=== PATIENT | female | born 1975 | race Caucasian/White ===

== ENCOUNTER 2019-08-29 10:13 | Observation (INO) | payer MEDICARE, OTHER ==
[2019-08-29 11:03] LABS: Basophils # (A) 0.1 k/uL (0-0.2); Basophils % (A) 1 %; Eosinophils # (A) 0.1 k/uL (0-0.7); Eosinophils % (A) 2 %; HCT 44.3 % (34.0-46.0); HGB 14.5 gm/dL (11.4-16.0); Lymphocytes # (A) 1.9 k/uL (1.0-4.8); Lymphocytes % (A) 31 %; MCHC 32.7 g/dL (31.0-37.0); MCV 94.6 fL (80.0-100.0); Monocytes # (A) 0.3 k/uL (0-1.0); Monocytes % (A) 5 %; Neutrophils # (A) 3.7 k/uL (1.3-7.7); Neutrophils % (A) 60 %; Platelet Count 224 k/uL (150-450); RBC 4.69 m/uL (3.80-5.40); RDW 12.9 % (11.5-15.5); WBC 6.2 k/uL (3.8-10.6)
[2019-08-29 11:15] LABS: ALT 46 U/L (4-34); AST 29 U/L (14-36); African American GFR (CKD) >90 (>60 ml/min/1.73 sqM); Albumin 4.7 g/dL (3.5-5.0); Alkaline Phosphatase 72 U/L (38-126); Anion Gap 10 mmol/L; Blood Urea Nitrogen 15 mg/dL (7-17); Calcium 9.6 mg/dL (8.4-10.2); Carbon Dioxide 23 mmol/L (22-30); Chloride 106 mmol/L (98-107); Glucose 91 mg/dL (74-99); INR 0.9 (<1.2); Non-African American GFR(CKD) >90 (>60 ml/min/1.73 sqM); Partial Thromboplastin Time 22.8 sec (22.0-30.0); Potassium 4.2 mmol/L (3.5-5.1); Prothrombin Time 9.6 sec (9.0-12.0); Sodium 139 mmol/L (137-145); Total Bilirubin 0.3 mg/dL (0.2-1.3); Total Protein 7.7 g/dL (6.3-8.2)
[2019-08-29] MEDS ORDERED: MAG HYDROX/AL HYDROX/SIMETH 30 ML CUP PO PRN (11:46)
[2019-08-29] MEDS ORDERED: NALOXONE 0.4 MG/ML 1 ML VIAL IV PRN (11:46)
--- NOTE | 2019-08-29 11:46 | ED ---
Neuro HPI - General Chief Complaint: Neuro Symptoms/Deficit Stated Complaint: facial numbness, head pain Time Seen by Provider: 08/29/19 11:10 Source: patient Mode of arrival: ambulatory Limitations: no limitations - History of Present Illness Is the patient presenting with stroke symptoms?: No Initial Comments: Patient presents to the emergency department complaining of syncopal episodes, off-and-on trouble speaking and left-sided numbness. Patient has had a recent head injury. She had a CT which was negative. Her symptoms began after the head injury. She currently has no change in vision or hearing. She has no pain. She has no neck pain or stiffness. She has no fever or chills. She is not currently exhibiting any trouble speaking. She has no chest or belly or back pain. She has no weakness in extremities. She has no nausea or vomiting or diaphoresis. She has taken no medicine for her symptoms. - Related Data Allergies/Adverse Reactions: Allergies Allergy/AdvReac Type Severity Reaction Status Date / Time gluten Allergy Swelling Verified 08/29/19 10:17 phenytoin [From Dilantin] Allergy Unknown Verified 08/29/19 10:17 shellfish derived [Shellfish] Allergy Anaphylaxis Verified 08/29/19 10:17 Review of Systems ROS Statement: Those systems with pertinent positive or pertinent negative responses have been documented in the HPI. ROS Other: All systems not noted in ROS Statement are negative. General Exam Limitations: no limitations General appearance: alert, in no apparent distress Head exam: Present: atraumatic, normocephalic, normal inspection Eye exam: Present: normal appearance, PERRL, EOMI. Absent: scleral icterus, conjunctival injection, periorbital swelling ENT exam: Present: normal exam, mucous membranes moist Neck exam: Present: normal inspection. Absent: tenderness, meningismus, lymphadenopathy Respiratory exam: Present: normal lung sounds bilaterally. Absent: respiratory distress, wheezes, rales, rhonchi, stridor Cardiovascular Exam: Present: regular rate, normal rhythm, normal heart sounds. Absent: systolic murmur, diastolic murmur, rubs, gallop, clicks GI/Abdominal exam: Present: soft, normal bowel sounds. Absent: distended, tenderness, guarding, rebound, rigid Extremities exam: Present: normal inspection, full ROM, normal capillary refill. Absent: tenderness, pedal edema, joint swelling, calf tenderness Back exam: Present: normal inspection Neurological exam: Present: alert, oriented X3, CN II-XII intact Psychiatric exam: Present: normal affect, normal mood Skin exam: Present: warm, dry, intact, normal color. Absent: rash Stroke MDM - Lab Data Result diagrams: 08/29/19 10:41 08/29/19 10:41 Lab Results 08/29/19 08/29/19 08/29/19 Range/Units 10:41 10:41 10:41 WBC 6.2 (3.8-10.6) k/uL RBC 4.69 (3.80-5.40) m/uL Hgb 14.5 (11.4-16.0) gm/dL Hct 44.3 (34.0-46.0) % MCV 94.6 (80.0-100.0) fL MCH 31.0 (25.0-35.0) pg MCHC 32.7 (31.0-37.0) g/dL RDW 12.9 (11.5-15.5) % Plt Count 224 (150-450) k/uL Neutrophils % 60 % Lymphocytes % 31 % Monocytes % 5 % Eosinophils % 2 % Basophils % 1 % Neutrophils # 3.7 (1.3-7.7) k/uL Lymphocytes # 1.9 (1.0-4.8) k/uL Monocytes # 0.3 (0-1.0) k/uL Eosinophils # 0.1 (0-0.7) k/uL Basophils # 0.1 (0-0.2) k/uL PT 9.6 (9.0-12.0) sec INR 0.9 (<1.2) APTT 22.8 (22.0-30.0) sec Sodium 139 (137-145) mmol/L Potassium 4.2 (3.5-5.1) mmol/L Chloride 106 (98-107) mmol/L Carbon Dioxide 23 (22-30) mmol/L Anion Gap 10 mmol/L BUN 15 (7-17) mg/dL Creatinine 0.71 (0.52-1.04) mg/dL Est GFR (CKD-EPI)AfAm >90 (>60 ml/min/1.73 sqM) Est GFR (CKD-EPI)NonAf >90 (>60 ml/min/1.73 sqM) Glucose 91 (74-99) mg/dL Calcium 9.6 (8.4-10.2) mg/dL Total Bilirubin 0.3 (0.2-1.3) mg/dL AST 29 (14-36) U/L ALT 46 H (4-34) U/L Alkaline Phosphatase 72 (38-126) U/L Troponin I (0.000-0.034) ng/mL Total Protein 7.7 (6.3-8.2) g/dL Albumin 4.7 (3.5-5.0) g/dL 08/29/19 Range/Units 10:41 WBC (3.8-10.6) k/uL RBC (3.80-5.40) m/uL Hgb (11.4-16.0) gm/dL Hct (34.0-46.0) % MCV (80.0-100.0) fL MCH (25.0-35.0) pg MCHC (31.0-37.0) g/dL RDW (11.5-15.5) % Plt Count (150-450) k/uL Neutrophils % % Lymphocytes % % Monocytes % % Eosinophils % % Basophils % % Neutrophils # (1.3-7.7) k/uL Lymphocytes # (1.0-4.8) k/uL Monocytes # (0-1.0) k/uL Eosinophils # (0-0.7) k/uL Basophils # (0-0.2) k/uL PT (9.0-12.0) sec INR (<1.2) APTT (22.0-30.0) sec Sodium (137-145) mmol/L Potassium (3.5-5.1) mmol/L Chloride (98-107) mmol/L Carbon Dioxide (22-30) mmol/L Anion Gap mmol/L BUN (7-17) mg/dL Creatinine (0.52-1.04) mg/dL Est GFR (CKD-EPI)AfAm (>60 ml/min/1.73 sqM) Est GFR (CKD-EPI)NonAf (>60 ml/min/1.73 sqM) Glucose (74-99) mg/dL Calcium (8.4-10.2) mg/dL Total Bilirubin (0.2-1.3) mg/dL AST (14-36) U/L ALT (4-34) U/L Alkaline Phosphatase (38-126) U/L Troponin I <0.012 (0.000-0.034) ng/mL Total Protein (6.3-8.2) g/dL Albumin (3.5-5.0) g/dL - Medical Decision Making patient presented with intermittent syncopal episodes. She was sent in by her physician for further evaluation. I will consult neurology. Patient will be admitted to the hospital for further management. 08/29/19 11:46 Twelve-lead EKG shows ventricular rate 64 bpm, normal [place] interval and QRS complexes, no ST elevation or depression, interpreted by me as normal sinus and. Past Medical History Past Medical History: No Reported History History of Any Multi-Drug Resistant Organisms: None Reported Past Surgical History: Section, Cholecystectomy, Tubal Ligation Additional Past Surgical History / Comment(s): fundaplication, Past Psychological History: Anxiety, Bipolar Smoking Status: Never smoker Past Alcohol Use History: None Reported Past Drug Use History: Marijuana Course Vital Signs 08/29/19 10:18 Temperature 97.8 F Pulse Rate 52 L Respiratory 18 Rate Blood Pressure 134/93 O2 Sat by Pulse 98 Oximetry Disposition Clinical Impression: Transient cerebral ischemia Disposition: ADMITTED IP TO THIS HOSP Is patient prescribed a controlled substance at d/c from ED?: No Referrals: Adalberto Carney MD [Primary Care Provider] - 1-2 days
[2019-08-29] MEDS ORDERED: ONDANSETRON 4 MG/2 ML VIAL IVP STA (14:36)
--- NOTE | 2019-08-29 17:00 | P.CNNES ---
History of Present Illness Consult date: 08/29/19 Requesting physician: Sulaiman Knott Reason for Consult: TIA History of Present Illness: Patient is a 44-year-old female who suffered from closed head injury with concussion on 08/18/2019, after she fell off a Hoverboard. Patient was using Hoverboard the first time, at request of her children, at her home, not using any helmet, when she fell backwards, hitting her head on the ground. It was not carpeted. Patient states that she passed out for less than 30 seconds. After she woke up, she felt stunned. She did not seek medical attention, as she has an appointment with her primary doctor the next day. Her primary physician ordered a computed tomography scan of the head which was done at another facility, which was reportedly normal. Next day she started feeling stiffness of the neck, coming to the left ear and then face. She is noticing left facial droop. She is having intense headache involving the left orbital temporal parietal region. She feels confused, driving off the road, forgets, left stove on one time. She is noticing problem with the motor skills. She is having difficulty with word finding, stutters gets frustrated. Her ears are aching. Sometimes she is noticing double vision. Gets blurred vision. She has been having nausea, gagging. She was seen by neurologist as an outpatient, who initiated an MRI of the brain, MRA of head, which she has scheduled for 09/05/2019 at [facility]. As her symptoms are getting worse, she decided come to the ER. Patient has history of migraines or life. She is getting migraines 3 times a month, until she was started on Topamax. She is taking Topamax 25 minute gram in the morning 50 mg at night. She has not had any migraine for the last 3 months. 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 She was intubated 3 times for her "pseudoseizures" at [facility]. Patient denies any tobacco, alcohol use. Review of Systems As mentioned above in detail. She has anxiety. She is on disability. Past Medical History Past Medical History: No Reported History History of Any Multi-Drug Resistant Organisms: None Reported Past Surgical History: Section, Cholecystectomy, Tubal Ligation Additional Past Surgical History / Comment(s): fundaplication, Past Psychological History: Anxiety, Bipolar Smoking Status: Never smoker Past Alcohol Use History: None Reported Past Drug Use History: Marijuana Medications and Allergies Home Medications Medication Instructions Recorded Confirmed Type ARIPiprazole [Abilify] 5 mg PO DAILY 08/29/19 08/29/19 History Atorvastatin [Lipitor] 10 mg PO HS 08/29/19 08/29/19 History Cyclobenzaprine [Flexeril] 10 mg PO BID 08/29/19 08/29/19 History Desvenlafaxine [Desvenlafaxine ER] 50 mg PO DAILY 08/29/19 08/29/19 History Diclofenac Sodium Gel [Voltaren 1 applic TOPICAL DAILY PRN 08/29/19 08/29/19 History Gel] Diclofenac Sodium [Voltaren] 50 mg PO HS 08/29/19 08/29/19 History Pantoprazole Sodium [Protonix] 40 mg PO DAILY 08/29/19 08/29/19 History Topiramate [Topamax] 25 mg PO DAILY 08/29/19 08/29/19 History Topiramate [Topamax] 50 mg PO HS 08/29/19 08/29/19 History traZODone HCL 100 mg PO HS 08/29/19 08/29/19 History Allergies Allergy/AdvReac Type Severity Reaction Status Date / Time duloxetine Allergy Rash/Hives Verified 08/29/19 12:00 gluten Allergy Swelling Verified 08/29/19 11:55 phenytoin [From Dilantin] Allergy Unknown Verified 08/29/19 11:55 shellfish derived [Shellfish] Allergy Anaphylaxis Verified 08/29/19 11:55 Physical Examination - Vital Signs Vital Signs: Vital Signs Temp Pulse Resp BP Pulse Ox 08/29/19 15:35 72 20 131/82 97 08/29/19 13:47 65 20 126/99 100 08/29/19 10:18 97.8 F 52 L 18 134/93 98 Intake and Output 08/29/19 08/29/19 08/29/19 06:59 14:59 22:59 Other: Weight 97.522 kg On examination patient is a middle aged female, in no distress. Patient is alert and awake fully oriented to time place and person. Speech and language functions are normal. Attention and concentration fund of knowledge is adequate. On cranial nerve examination pupils are round and reactive to light, visual rojas are full on confrontation, extraocular muscles intact with no nystagmus. No Astrid's. Face is asymmetric with left facial droop, somewhat central type. This is noticeable, as her previous photographs does not show any facial asymmetry. However at one time when the patient was spontaneously smiling, appeared symmetric. Tongue protrudes the midline. Palatal elevation and sensation normal. On muscle strength testing there is no pronator drift and the strength is normal in arms and legs distally and proximally. Reflexes are 1+ to 2 and plantars downgoing. Sensory touch is equal. No ataxia for finger -to-nose, tone and bulk of muscles normal. Gait appears normal. No carotid bruit or murmur, peripheral pulses present. Results - Laboratory Findings CBC and BMP: 08/29/19 10:41 08/29/19 10:41 Abnormal Lab Findings: Abnormal Labs 08/29/19 10:41 ALT 46 H Assessment and Plan Assessment: * Status post closed head injury with concussion on 08/18/2019, falling backwards off a Hoverboard. Patient is experiencing postconcussive syndrome. Patient has left facial asymmetry, also noticing multiple other neurological symptoms including intermittent diplopia, stuttering, word finding difficulty, worsening headaches, rule out vertebral or carotid artery dissection. Plan: * Patient will undergo repeat computed tomography scan of the head to rule out any subdural hematoma. * We will check CTA of head and neck to rule out any carotid or vertebral artery dissection. * As MRI cannot be done over the weekend, patient called outside facility where she already has been scheduled for MRI of the brain. It was scheduled for 09/05/2019. After urgent request, it has been moved to 09/02/2019. * I will start Antivert for dizziness, and Fioricet for headaches. * If the CTA of the head and neck comes back normal, patient can be discharged, and follow-up with her neurologist after outpatient MRI as described.
--- NOTE | 2019-08-29 17:32 | CT ---
EXAMINATION TYPE: CT angio head neck DATE OF EXAM: 08/29/2019 COMPARISON: None HISTORY: Left sided facial numbness and dizziness CT DLP: 544 mGycm Automated exposure control for dose reduction was used. CONTRAST: Performed with IV Contrast, patient injected with 100 mL of Isovue 370. Multiple axial sections were obtained from the aortic arch to the vertex of the brain with intravenou s contrast. There are 3-D post processed images. There is normal contrast opacification of the aortic arch. There is normal branching pattern of the g reat vessels. There is bilateral arterial flow in the subclavian arteries. There is arterial flow in the common internal and external carotid arteries bilaterally. There is wide patency of the carotid a rtery bifurcations. There is bilateral arterial flow in the vertebral arteries. There is arterial blayne w in the vertebrobasilar artery system. There is arterial flow in the anterior middle and posterior cerebral arteries. There is no evidence o f intracranial aneurysm or neovascularity. There is no mass effect. There is normal contrast opacific ation of the venous sinuses. I see no evidence of intracranial arterial stenosis. IMPRESSION: Normal CT angiogram of the neck. Normal CT angiogram of the brain.
[2019-08-29] MEDS ORDERED: MECLIZINE 25 MG TAB PO STA (18:27)
--- NOTE | 2019-08-29 18:48 | P.HPIM ---
History of Present Illness H&P Date: 08/29/19 Chief Complaint: Fall/TIA 44-year-old female who suffered from closed head injury with concussion on 08/18/2019, after she fell off a Hoverboard. Patient was using Hoverboard the first time, at request of her children, at her home, not using any helmet, when she fell backwards, hitting her head on the ground. It was not carpeted. Patient states that she passed out for less than 30 seconds. After she woke up, she felt stunned. She did not seek medical attention, as she has an appointment with her primary doctor the next day. Her primary physician ordered a computed tomography scan of the head which was done at another facility, which was reportedly normal. Next day she started feeling stiffness of the neck, coming to the left ear and then face. She is noticing left facial droop. She is having intense headache involving the left orbital temporal parietal region. She feels confused, driving off the road, forgets, left stove on one time. She is noticing problem with the motor skills. She is having difficulty with word finding, stutters gets frustrated. Her ears are aching. Sometimes she is noticing double vision. Gets blurred vision. She has been having nausea, gagging. She was seen by neurologist as an outpatient, who initiated an MRI of the brain, MRA of head, which she has scheduled for 09/05/2019 at [facility]. As her symptoms are getting worse, she decided come to the ER. Review of Systems REVIEW OF SYSTEMS: CONSTITUTIONAL: No fever, no malaise, no fatigue. HEENT: No recent visual problems or hearing problems. Denied any sore throat. CARDIOVASCULAR: No chest pain, orthopnea, PND, no palpitations, no syncope. PULMONARY: No shortness of breath, no cough, no hemoptysis. GASTROINTESTINAL: No diarrhea, no nausea, no vomiting, no abdominal pain. NEUROLOGICAL: No headaches, no weakness, no numbness. HEMATOLOGICAL: Denies any bleeding or petechiae. GENITOURINARY: Denies any burning micturition, frequency, or urgency. MUSCULOSKELETAL/RHEUMATOLOGICAL: Denies any joint pain, swelling, or any muscle pain. ENDOCRINE: Denies any polyuria or polydipsia. The rest of the 14-point review of systems is negative. Past Medical History Past Medical History: No Reported History History of Any Multi-Drug Resistant Organisms: None Reported Past Surgical History: Section, Cholecystectomy, Tubal Ligation Additional Past Surgical History / Comment(s): fundaplication, Past Psychological History: Anxiety, Bipolar Smoking Status: Never smoker Past Alcohol Use History: None Reported Past Drug Use History: Marijuana Medications and Allergies Home Medications Medication Instructions Recorded Confirmed Type ARIPiprazole [Abilify] 5 mg PO DAILY 08/29/19 08/29/19 History Atorvastatin [Lipitor] 10 mg PO HS 08/29/19 08/29/19 History Cyclobenzaprine [Flexeril] 10 mg PO BID 08/29/19 08/29/19 History Desvenlafaxine [Desvenlafaxine ER] 50 mg PO DAILY 08/29/19 08/29/19 History Diclofenac Sodium Gel [Voltaren 1 applic TOPICAL DAILY PRN 08/29/19 08/29/19 History Gel] Diclofenac Sodium [Voltaren] 50 mg PO HS 08/29/19 08/29/19 History Pantoprazole Sodium [Protonix] 40 mg PO DAILY 08/29/19 08/29/19 History Topiramate [Topamax] 25 mg PO DAILY 08/29/19 08/29/19 History Topiramate [Topamax] 50 mg PO HS 08/29/19 08/29/19 History traZODone HCL 100 mg PO HS 08/29/19 08/29/19 History Allergies Allergy/AdvReac Type Severity Reaction Status Date / Time duloxetine Allergy Rash/Hives Verified 08/29/19 12:00 gluten Allergy Swelling Verified 08/29/19 11:55 phenytoin [From Dilantin] Allergy Unknown Verified 08/29/19 11:55 shellfish derived [Shellfish] Allergy Anaphylaxis Verified 08/29/19 11:55 Physical Exam Vitals: Vital Signs Temp Pulse Resp BP Pulse Ox 08/29/19 18:37 91 16 99/86 95 08/29/19 15:35 72 20 131/82 97 08/29/19 13:47 65 20 126/99 100 08/29/19 10:18 97.8 F 52 L 18 134/93 98 Intake and Output 08/29/19 08/29/19 08/29/19 06:59 14:59 22:59 Other: Weight 97.522 kg PHYSICAL EXAMINATION: GENERAL: The patient is alert and oriented x3, not in any acute distress. Well developed, well nourished. HEENT: Pupils are round and equally reacting to light. EOMI. No scleral icterus. No conjunctival pallor. Normocephalic, atraumatic. No pharyngeal erythema. No thyromegaly. CARDIOVASCULAR: S1 and S2 present. No murmurs, rubs, or gallops. PULMONARY: Chest is clear to auscultation, no wheezing or crackles. ABDOMEN: Soft, nontender, nondistended, normoactive bowel sounds. No palpable organomegaly. MUSCULOSKELETAL: No joint swelling or deformity. EXTREMITIES: No cyanosis, clubbing, or pedal edema. NEUROLOGICAL: Gross neurological examination did not reveal any focal deficits. SKIN: No rashes. Results CBC & Chem 7: 08/29/19 10:41 08/29/19 10:41 Labs: Abnormal Lab Results - Last 24 Hours (Table) 08/29/19 Range/Units 10:41 ALT 46 H (4-34) U/L Assessment and Plan Assessment: 1. Fall with closed head injury/postconcussive syndrome; neurology is consulted and recommending CT of the head to to rule out subdural hematoma; CT of head and neck is ordered to rule out carotid artery vertebral artery dissection; patient has an appointment for an MRI at an outside facility which has been preformed from 09/05/2019 to 09/02/2019; Antivert is ordered for dizziness and patient will use Fioricet for headaches; neurology recommending possible discharge and outpatient follow-up if CT of head and neck is negative 2. Hyperlipidemia; Lipitor 10 mg by mouth daily at bedtime 3. Bipolar depression; continue with Abilify 5 mg daily along with Desvenlafaxine 50 mg daily 4. Migraine headaches; patient uses Topamax 50 mg by mouth daily at bedtime and 25 mg every morning 5. Gastroesophageal reflux disease; Protonix 40 mg daily 6. DVT prophylaxis; SCDs only due to closed head injury CODE STATUS; full code
[2019-08-29] MEDS ORDERED: ETODOLAC 200 MG CAPSULE PO SCH (21:00)
[2019-08-29] MEDS ORDERED: TOPIRAMATE 25 MG TAB PO SCH (21:00)
[2019-08-29] MEDS ORDERED: ATORVASTATIN 10 MG TAB PO SCH (21:00)
[2019-08-29] MEDS ORDERED: traZODone HCL 100 MG TAB PO SCH (21:00)
[2019-08-29] MEDS ORDERED: BUTALB/APAP/CAFF 50-325-40MG TAB PO PRN (21:14)
--- NOTE | 2019-08-29 21:35 | CT ---
EXAMINATION TYPE: CT brain wo con DATE OF EXAM: 08/29/2019 COMPARISON: None HISTORY: Left sided facial numbness and dizziness CT DLP: 1052 mGycm Automated exposure control for dose reduction was used. Multiple axial sections were obtained of the brain without contrast. Ventricles and sulci appear normal. There is no mass effect nor midline shift. There is no sign of in tracranial hemorrhage. Calvarium is intact. IMPRESSION: Negative unenhanced head CT scan.
[2019-08-29] MEDS: CYCLOBENZAPRINE 10 MG TAB PO SCH (21:39)
[2019-08-30] MEDS: MECLIZINE 25 MG TAB PO PRN ×2 (01:40→09:42)
[2019-08-30 06:28] LABS: Basophils # (A) 0.1 k/uL (0-0.2); Basophils % (A) 1 %; Eosinophils # (A) 0.1 k/uL (0-0.7); Eosinophils % (A) 2 %; HCT 42.5 % (34.0-46.0); HGB 13.2 gm/dL (11.4-16.0); Lymphocytes # (A) 1.5 k/uL (1.0-4.8); Lymphocytes % (A) 29 %; MCHC 31.1 g/dL (31.0-37.0); MCV 96.3 fL (80.0-100.0); Mean Platelet Volume 9.2; Monocytes # (A) 0.3 k/uL (0-1.0); Monocytes % (A) 6 %; Neutrophils # (A) 3.1 k/uL (1.3-7.7); Neutrophils % (A) 60 %; Platelet Count 212 k/uL (150-450); RBC 4.41 m/uL (3.80-5.40); RDW 12.8 % (11.5-15.5); WBC 5.1 k/uL (3.8-10.6)
[2019-08-30 06:49] LABS: African American GFR (CKD) >90 (>60 ml/min/1.73 sqM); Anion Gap 10 mmol/L; Blood Urea Nitrogen 20 mg/dL (7-17); Carbon Dioxide 20 mmol/L (22-30); Chloride 109 mmol/L (98-107); Glucose 122 mg/dL (74-99); Non-African American GFR(CKD) >90 (>60 ml/min/1.73 sqM); Potassium 4.4 mmol/L (3.5-5.1); Sodium 139 mmol/L (137-145)
[2019-08-30] MEDS ORDERED: PANTOPRAZOLE 40 MG TABLET PO SCH (07:30)
[2019-08-30] MEDS: CYCLOBENZAPRINE 10 MG TAB PO SCH (08:08)
[2019-08-30] MEDS ORDERED: TOPIRAMATE 25 MG TAB PO SCH (09:00)
[2019-08-30] MEDS ORDERED: ARIPiprazole 5 MG TAB PO SCH (09:00)
[2019-08-30 09:17] VITALS: RESP 20
--- NOTE | 2019-08-30 09:20 | MR ---
EXAMINATION TYPE: MR brain wo con DATE OF EXAM: 08/30/2019 9:07 AM. COMPARISON: Previous CT scan of the brain dated 08/29/2019.. HISTORY: Left facial weakness. Technique: Multiplanar, multiecho imaging of the brain was obtained without intravenous contrast. FINDINGS: Midline structures are unremarkable. There is a normal craniocervical junction. Echoplanar diffusion imaging is normal. There are normal vascular flow voids. The orbits are unremarkable. There is no evidence of a CP angle mass lesion. No acute focal lesion, mass effect or midline shift is seen. I do not see evidence of intracranial bl ood. IMPRESSION: NORMAL MRI OF THE BRAIN.
[2019-08-30 11:49] VITALS: BP 113/73; PULSE 71; TEMP 97.9
--- NOTE | 2019-08-30 14:21 | P.DS ---
Providers Date of admission: 08/29/19 11:46 Expected date of discharge: 08/30/19 Attending physician: Sindhu Dey Consults: 08/29/19 11:48 Consult Physician Routine Consulting Provider: Tatiana Monzon Consult Reason/Comments: tia Do you want consulting provider notified?: Yes Primary care physician: Adalberto Carney MD Hospital Course: 44-year-old female who suffered from closed head injury with concussion on 08/18/2019, after she fell off a Hoverboard. Patient was using Hoverboard the first time, at request of her children, at her home, not using any helmet, when she fell backwards, hitting her head on the ground. It was not carpeted. Patient states that she passed out for less than 30 seconds. After she woke up, she felt stunned. She did not seek medical attention, as she has an appointment with her primary doctor the next day. Her primary physician ordered a computed tomography scan of the head which was done at another facility, which was reportedly normal. Next day she started feeling stiffness of the neck, coming to the left ear and then face. She is noticing left facial droop. She is having intense headache involving the left orbital temporal parietal region. She feels confused, driving off the road, forgets, left stove on one time. She is noticing problem with the motor skills. She is having difficulty with word finding, stutters gets frustrated. Her ears are aching. Sometimes she is noticing double vision. Gets blurred vision. She has been having nausea, gagging. She was seen by neurologist as an outpatient, who initiated an MRI of the brain, MRA of head, which she has scheduled for 09/05/2019 at [facility]. As her symptoms are getting worse, she decided come to the ER. neurology is consulted and recommending CT of the head to to rule out subdural hematoma; CT of head and neck is ordered to rule out carotid artery vertebral artery dissection; patient has an appointment for an MRI at an outside facility which has been preformed from 09/05/2019 to 09/02/2019; Antivert is ordered for dizziness and patient will use Fioricet for headaches; neurology recommending possible discharge and outpatient follow-up if CT of head and neck is negative; All work up including an MRI of the brain was negative Patient will be ar'ed home in a stable condition Plan - Discharge Summary Discharge Rx Participant: No New Discharge Prescriptions: New Meclizine [Antivert] 25 mg PO TID PRN #30 tab PRN Reason: Vertigo Continue ARIPiprazole [Abilify] 5 mg PO DAILY Atorvastatin [Lipitor] 10 mg PO HS Cyclobenzaprine [Flexeril] 10 mg PO BID Desvenlafaxine [Desvenlafaxine ER] 50 mg PO DAILY Diclofenac Sodium [Voltaren] 50 mg PO HS Diclofenac Sodium Gel [Voltaren Gel] 1 applic TOPICAL DAILY PRN PRN Reason: PAIN ON NECK AND FACE Pantoprazole Sodium [Protonix] 40 mg PO DAILY Topiramate [Topamax] 50 mg PO HS Topiramate [Topamax] 25 mg PO DAILY traZODone HCL 100 mg PO HS Discharge Medication List ARIPiprazole [Abilify] 5 mg PO DAILY 08/29/19 [History] Atorvastatin [Lipitor] 10 mg PO HS 08/29/19 [History] Cyclobenzaprine [Flexeril] 10 mg PO BID 08/29/19 [History] Desvenlafaxine [Desvenlafaxine ER] 50 mg PO DAILY 08/29/19 [History] Diclofenac Sodium Gel [Voltaren Gel] 1 applic TOPICAL DAILY PRN 08/29/19 [History] Diclofenac Sodium [Voltaren] 50 mg PO HS 08/29/19 [History] Pantoprazole Sodium [Protonix] 40 mg PO DAILY 08/29/19 [History] Topiramate [Topamax] 25 mg PO DAILY 08/29/19 [History] Topiramate [Topamax] 50 mg PO HS 08/29/19 [History] traZODone HCL 100 mg PO HS 08/29/19 [History] Meclizine [Antivert] 25 mg PO TID PRN #30 tab 08/30/19 [Rx] Follow up Appointment(s)/Referral(s): Adalberto Carney MD [Primary Care Provider] - 1-2 days Discharge Disposition: HOME SELF-CARE
== END 2019-08-30 15:30 | disposition home or self-care (01) ==
LOC: EC 10:13 → 3SCARD 11:46
PROVIDERS: ADMIT Internal Medicine; ATTEND Internal Medicine
DX: R55 Syncope and collapse (principal); R47.89 Other speech disturbances; R20.0 Anesthesia of skin; F07.81 Postconcussional syndrome; E78.5 Hyperlipidemia, unspecified; F31.9 Bipolar disorder, unspecified; G43.909 Migraine, unspecified, not intractable, without status migrainosus; K21.9 Gastro-esophageal reflux disease without esophagitis; F41.9 Anxiety disorder, unspecified; Z91.018 Allergy to other foods; Z88.8 Allergy status to other drugs, medicaments and biological substances; Z91.013 Allergy to seafood; Z98.890 Other specified postprocedural states; Z90.49 Acquired absence of other specified parts of digestive tract; Z98.51 Tubal ligation status; Z79.899 Other long term (current) drug therapy
CPT/HCPCS: 96374; 99285; 36415; 93005; 80053; 80048; 84484; 85025 ×2; 85610; 85730; 70496; 70450; 70498; 70551; G0378 ×2; J2405; Q9967

== ENCOUNTER 2019-10-07 14:54 | Observation (INO) | payer MEDICARE, OTHER ==
[2019-10-07] MEDS ORDERED: SODIUM CHLORIDE 0.9% 1,000 ML IV STA (15:56)
--- NOTE | 2019-10-07 16:30 | ED ---
Dizziness HPI - General Chief Complaint: Syncope Stated Complaint: syncope Time Seen by Provider: 10/07/19 15:47 Source: patient, EMS, RN notes reviewed Mode of arrival: EMS Limitations: no limitations - History of Present Illness Initial Comments: This a 44-year-old female presents emergency Department chief complaint of syncope, exertional dyspnea. Patient states she has not felt well over the last few weeks has been being worked up for exertional dyspnea. She states she had an echocardiogram and her carotids done. Patient had no acute findings on this. Patient states that she has no history of blood clots. Patient states that she gets very lightheaded feels that her heart starts racing when she gets up and walks. She states she feels like she's been a pass out. Patient states she was at her PCPs office today who sent her to the hospital for admission and she states that she had very lightheaded passed out and was brought to emergency from via EMS. Patient does admit that she has a history of anxiety does not feel like she's having panic attacks. Patient does have a history of seizures along with pseudoseizure. Patient denies any current leg swelling, calf pain. Denies chest pain or shortness of breath currently. She states most of her symptoms are exertional she states she gets very winded, cannot complete a sentence after ambulating - Related Data Home Medications Medication Instructions Recorded Confirmed ARIPiprazole [Abilify] 5 mg PO DAILY 08/29/19 08/29/19 Atorvastatin [Lipitor] 10 mg PO HS 08/29/19 08/29/19 Cyclobenzaprine [Flexeril] 10 mg PO BID 08/29/19 08/29/19 Desvenlafaxine [Desvenlafaxine ER] 50 mg PO DAILY 08/29/19 08/29/19 Diclofenac Sodium Gel [Voltaren 1 applic TOPICAL DAILY PRN 08/29/19 08/29/19 Gel] Diclofenac Sodium [Voltaren] 50 mg PO HS 08/29/19 08/29/19 Pantoprazole Sodium [Protonix] 40 mg PO DAILY 08/29/19 08/29/19 Topiramate [Topamax] 25 mg PO DAILY 08/29/19 08/29/19 Topiramate [Topamax] 50 mg PO HS 08/29/19 08/29/19 traZODone HCL 100 mg PO HS 08/29/19 08/29/19 Previous Rx's Medication Instructions Recorded Meclizine [Antivert] 25 mg PO TID PRN #30 tab 08/30/19 Allergies Allergy/AdvReac Type Severity Reaction Status Date / Time duloxetine Allergy Rash/Hives Verified 08/29/19 12:00 gluten Allergy Swelling Verified 08/29/19 11:55 phenytoin [From Dilantin] Allergy Unknown Verified 08/29/19 11:55 shellfish derived [Shellfish] Allergy Anaphylaxis Verified 08/29/19 11:55 Review of Systems ROS Statement: Those systems with pertinent positive or pertinent negative responses have been documented in the HPI. ROS Other: All systems not noted in ROS Statement are negative. Past Medical History Past Medical History: No Reported History Additional Past Medical History / Comment(s): pt. states they have had TIA in 2014 and 2017, seudoseziures, bipolar 1, anxiety History of Any Multi-Drug Resistant Organisms: None Reported Past Surgical History: Section, Cholecystectomy, Tubal Ligation Additional Past Surgical History / Comment(s): fundaplication, laproscopic scar tissue removal Past Psychological History: Anxiety, Bipolar Smoking Status: Never smoker Past Alcohol Use History: None Reported Past Drug Use History: Marijuana - Past Family History Mother Family Medical History: Congestive Heart Failure (CHF) Sister(s) Additional Family Medical History / Comment(s): Lupus Brother(s) Additional Family Medical History / Comment(s): cystic fibrosis General Exam Limitations: no limitations General appearance: alert, in no apparent distress Head exam: Present: atraumatic, normocephalic, normal inspection Eye exam: Present: normal appearance, PERRL, EOMI. Absent: scleral icterus, conjunctival injection, periorbital swelling ENT exam: Present: normal exam, normal oropharynx, mucous membranes moist, TM's normal bilaterally Neck exam: Present: normal inspection, full ROM. Absent: tenderness, meningismus, lymphadenopathy Respiratory exam: Present: normal lung sounds bilaterally. Absent: respiratory distress, wheezes, rales, rhonchi, stridor Cardiovascular Exam: Present: regular rate, normal rhythm, normal heart sounds. Absent: systolic murmur, diastolic murmur, rubs, gallop, clicks GI/Abdominal exam: Present: soft, normal bowel sounds. Absent: distended, tenderness, guarding, rebound, rigid Neurological exam: Present: alert, oriented X3, CN II-XII intact Course Vital Signs 10/07/19 10/07/19 10/07/19 15:02 16:42 18:10 Temperature 98.3 F Pulse Rate 66 101 H 59 L Respiratory 17 17 Rate Blood Pressure 131/96 129/87 O2 Sat by Pulse 97 97 96 Oximetry - Reevaluation(s) Reevaluation #1: 10/07/19 16:42 Patient ambulated around emergency Department short distance she became very symptomatic, felt short of breath, very lightheaded, dizzy heart rate elevated above 100, pulse ox was low sat 97% EKG Findings - EKG Comments: EKG Findings:: EKG performed at 15:04 normal sinus rhythm rate of 60 NH 164 QRS 88 QT status QTC 436/436 there is a Q wave, inverted T wave in V3 - EKG Results: EKG: interpreted by DONNY Medical Decision Making - Medical Decision Making Patient had persistent exertional dyspnea, lightheadedness, syncopal episode. Patient be admitted for further evaluation with consult cardiology. - Lab Data Result diagrams: 10/07/19 15:15 10/07/19 15:15 Lab Results 10/07/19 10/07/19 10/07/19 Range/Units 15:15 15:15 15:15 WBC 4.6 (3.8-10.6) k/uL RBC 4.45 (3.80-5.40) m/uL Hgb 13.7 (11.4-16.0) gm/dL Hct 42.1 (34.0-46.0) % MCV 94.7 (80.0-100.0) fL MCH 30.9 (25.0-35.0) pg MCHC 32.6 (31.0-37.0) g/dL RDW 13.0 (11.5-15.5) % Plt Count 173 (150-450) k/uL Neutrophils % 59 % Lymphocytes % 30 % Monocytes % 6 % Eosinophils % 3 % Basophils % 1 % Neutrophils # 2.7 (1.3-7.7) k/uL Lymphocytes # 1.4 (1.0-4.8) k/uL Monocytes # 0.3 (0-1.0) k/uL Eosinophils # 0.1 (0-0.7) k/uL Basophils # 0.1 (0-0.2) k/uL PT 9.9 (9.0-12.0) sec INR 0.9 (<1.2) APTT 23.0 (22.0-30.0) sec D-Dimer 0.20 (<0.60) mg/L FEU Sodium 138 (137-145) mmol/L Potassium 4.2 (3.5-5.1) mmol/L Chloride 106 (98-107) mmol/L Carbon Dioxide 22 (22-30) mmol/L Anion Gap 10 mmol/L BUN 16 (7-17) mg/dL Creatinine 0.70 (0.52-1.04) mg/dL Est GFR (CKD-EPI)AfAm >90 (>60 ml/min/1.73 sqM) Est GFR (CKD-EPI)NonAf >90 (>60 ml/min/1.73 sqM) Glucose 89 (74-99) mg/dL Calcium 9.4 (8.4-10.2) mg/dL Magnesium 1.9 (1.6-2.3) mg/dL Total Bilirubin 0.2 (0.2-1.3) mg/dL AST 29 (14-36) U/L ALT 44 H (4-34) U/L Alkaline Phosphatase 67 (38-126) U/L Troponin I (0.000-0.034) ng/mL Total Protein 7.2 (6.3-8.2) g/dL Albumin 4.3 (3.5-5.0) g/dL Urine Color Urine Appearance (Clear) Urine pH (5.0-8.0) Ur Specific [place] (1.001-1.035) Urine Protein (Negative) Urine Glucose (UA) (Negative) Urine Ketones (Negative) Urine Blood (Negative) Urine Nitrite (Negative) Urine Bilirubin (Negative) Urine Urobilinogen (<2.0) mg/dL Ur Leukocyte Esterase (Negative) Urine RBC (0-5) /hpf Urine WBC (0-5) /hpf Ur Squamous Epith Cells (0-4) /hpf Urine Mucus (None) /hpf 10/07/19 10/07/19 Range/Units 15:15 15:15 WBC (3.8-10.6) k/uL RBC (3.80-5.40) m/uL Hgb (11.4-16.0) gm/dL Hct (34.0-46.0) % MCV (80.0-100.0) fL MCH (25.0-35.0) pg MCHC (31.0-37.0) g/dL RDW (11.5-15.5) % Plt Count (150-450) k/uL Neutrophils % % Lymphocytes % % Monocytes % % Eosinophils % % Basophils % % Neutrophils # (1.3-7.7) k/uL Lymphocytes # (1.0-4.8) k/uL Monocytes # (0-1.0) k/uL Eosinophils # (0-0.7) k/uL Basophils # (0-0.2) k/uL PT (9.0-12.0) sec INR (<1.2) APTT (22.0-30.0) sec D-Dimer (<0.60) mg/L FEU Sodium (137-145) mmol/L Potassium (3.5-5.1) mmol/L Chloride (98-107) mmol/L Carbon Dioxide (22-30) mmol/L Anion Gap mmol/L BUN (7-17) mg/dL Creatinine (0.52-1.04) mg/dL Est GFR (CKD-EPI)AfAm (>60 ml/min/1.73 sqM) Est GFR (CKD-EPI)NonAf (>60 ml/min/1.73 sqM) Glucose (74-99) mg/dL Calcium (8.4-10.2) mg/dL Magnesium (1.6-2.3) mg/dL Total Bilirubin (0.2-1.3) mg/dL AST (14-36) U/L ALT (4-34) U/L Alkaline Phosphatase (38-126) U/L Troponin I <0.012 (0.000-0.034) ng/mL Total Protein (6.3-8.2) g/dL Albumin (3.5-5.0) g/dL Urine Color Yellow Urine Appearance Clear (Clear) Urine pH 6.5 (5.0-8.0) Ur Specific [place] 1.020 (1.001-1.035) Urine Protein Negative (Negative) Urine Glucose (UA) Negative (Negative) Urine Ketones Negative (Negative) Urine Blood Moderate H (Negative) Urine Nitrite Negative (Negative) Urine Bilirubin Negative (Negative) Urine Urobilinogen <2.0 (<2.0) mg/dL Ur Leukocyte Esterase Negative (Negative) Urine RBC 166 H (0-5) /hpf Urine WBC 2 (0-5) /hpf Ur Squamous Epith Cells <1 (0-4) /hpf Urine Mucus Occasional H (None) /hpf Disposition Clinical Impression: Exertional dyspnea, Syncope, Lightheadedness Disposition: ADMITTED IP TO THIS HOSP Condition: Fair Referrals: Adalberto Carney MD [Primary Care Provider] - 1-2 days
[2019-10-07 16:34] LABS: Basophils # (A) 0.1 k/uL (0-0.2); Basophils % (A) 1 %; Eosinophils # (A) 0.1 k/uL (0-0.7); Eosinophils % (A) 3 %; HCT 42.1 % (34.0-46.0); HGB 13.7 gm/dL (11.4-16.0); Lymphocytes # (A) 1.4 k/uL (1.0-4.8); Lymphocytes % (A) 30 %; MCH 30.9 pg (25.0-35.0); MCHC 32.6 g/dL (31.0-37.0); MCV 94.7 fL (80.0-100.0); Mean Platelet Volume 9.8; Monocytes # (A) 0.3 k/uL (0-1.0); Monocytes % (A) 6 %; Neutrophils # (A) 2.7 k/uL (1.3-7.7); Neutrophils % (A) 59 %; Platelet Count 173 k/uL (150-450); RBC 4.45 m/uL (3.80-5.40); WBC 4.6 k/uL (3.8-10.6)
[2019-10-07 16:38] LABS: Appearance,Urine Clear (Clear); Bilirubin,Urine Negative (Negative); Blood,Urine Moderate (Negative); Color,Urine Yellow; Glucose,Urine (UA) Negative (Negative); Ketones,Urine Negative (Negative); Leukocyte Esterase,Urine Negative (Negative); Mucus,Urine Occasional /hpf; Nitrite,Urine Negative (Negative); PH, Urine 6.5 (5.0-8.0); Protein,Urine Negative (Negative); RBC,Urine 166 /hpf (0-5); Squamous Epithelial Cell,Urine <1 /hpf (0-4); Urobilinogen,Urine <2.0 mg/dL (<2.0); WBC,Urine 2 /hpf (0-5)
[2019-10-07 16:47] LABS: ALT 44 U/L (4-34); AST 29 U/L (14-36); African American GFR (CKD) >90 (>60 ml/min/1.73 sqM); Albumin 4.3 g/dL (3.5-5.0); Alkaline Phosphatase 67 U/L (38-126); Anion Gap 10 mmol/L; Blood Urea Nitrogen 16 mg/dL (7-17); Calcium 9.4 mg/dL (8.4-10.2); Carbon Dioxide 22 mmol/L (22-30); Chloride 106 mmol/L (98-107); Glucose 89 mg/dL (74-99); Magnesium 1.9 mg/dL (1.6-2.3); Non-African American GFR(CKD) >90 (>60 ml/min/1.73 sqM); Potassium 4.2 mmol/L (3.5-5.1); Sodium 138 mmol/L (137-145); Total Bilirubin 0.2 mg/dL (0.2-1.3); Total Protein 7.2 g/dL (6.3-8.2)
[2019-10-07 16:49] LABS: D-Dimer 0.2 mg/L FEU (<0.60); INR 0.9 (<1.2); Prothrombin Time 9.9 sec (9.0-12.0)
[2019-10-07] MEDS ORDERED: ONDANSETRON 4 MG/2 ML VIAL IVP PRN (18:16)
[2019-10-07] MEDS ORDERED: NALOXONE 0.4 MG/ML 1 ML VIAL IV PRN (18:16)
[2019-10-07] MEDS ORDERED: MECLIZINE 25 MG TAB PO PRN (18:18)
[2019-10-07] MEDS: traZODone HCL 100 MG TAB PO SCH (22:50)
[2019-10-07] MEDS: SODIUM CHLORIDE 0.9% 1,000 ML IV SCH (22:50)
[2019-10-07] MEDS: ATORVASTATIN 10 MG TAB PO SCH (22:50)
[2019-10-07] MEDS: TOPIRAMATE 25 MG TAB PO SCH (22:50)
[2019-10-08] MEDS: PANTOPRAZOLE 40 MG TABLET PO SCH ×2 (09:15→21:35)
[2019-10-08] MEDS: MECLIZINE 25 MG TAB PO SCH ×3 (09:15→21:35)
[2019-10-08] MEDS: ASPIRIN 81 MG PO SCH (09:15)
[2019-10-08] MEDS: DESVENLAFAXINE SUCCINATE 50 MG TAB.ER.24H PO SCH (09:15)
[2019-10-08 09:44] LABS: Cholesterol 147 mg/dL (<200); HDL Cholesterol 35 mg/dL (40-60); LDL Cholesterol,Calculated 88 mg/dL (0-99); Triglycerides 119 mg/dL (<150)
--- NOTE | 2019-10-08 11:23 | P.CRDCN ---
History of Present Illness History of present illness: HISTORY OF PRESENTING ILLNESS This is a pleasant 44-year-old female past medical history significant for TIA, closed head injury, bipolar, anxiety, seizure disorder and obesity. He denies prior history of coronary artery disease and does not follow in the office with a supervisor drawing. We have been asked to see in consultation for exertional dyspnea and syncope. She states for the previous 2 months she has been experiencing exertional shortness of breath and dizziness. No matter what activity she is performing she feels like she gets extremely winded and short of breath. She also experiences symptoms of the room spinning and sees floaters in her vision. Specifically yesterday while at her PCP office she was having an episode of dizziness. They did an ambulation test and per the patient her heart rate shot up to over 100 and she started feeling quite dizzy. She was advised to come to the ER for further evaluation. She was walking to the car and again in the parking lot she started feeling quite dizzy and actually passed out. She is prescribed antivert PRN however has not taken this when she is symptomatic. DIAGNOSTICS EKG reveals sinus mechanism with no acute ST or T-wave abnormalities. Laboratory reviewed, CBC unremarkable, d-dimer 0.2, sodium 138, potassium 4.2, creatinine 0.7, magnesium 1.9, cardiac enzymes negative x1, LDL 88, HDL 35 and cortisol 5. Current cardiac medications include aspirin 81 mg daily and atorvastatin 10 mg daily. REVIEW OF SYSTEMS At the time of my exam: CONSTITUTIONAL: Denies fever or chills. CARDIOVASCULAR: Denies chest pain, shortness of breath, orthopnea, PND or palpitations. RESPIRATORY: Denies cough. GASTROINTESTINAL: Denies abdominal pain, diarrhea, constipation, nausea or vomiting. MUSCULOSKELETAL: Denies myalgias. NEUROLOGIC: Denies numbness, tingling or weakness. ENDOCRINE: Denies fatigue, weight change, polydipsia or polyurina. GENITOURINARY: Denies burning, hematuria or urgency with micturation. HEMATOLOGIC: Denies history of anemia or bleeding. PHYSICAL EXAMINATION Blood pressure 121/81 heart rate 71 afebrile and maintaining oxygen saturation on room air. CONSTITUTIONAL: No apparent distress. HEENT: Head is normocephalic. Pupils are equal, round. Sclerae anicteric. Mucous membranes of the mouth are moist. No JVD. No carotid bruit. CHEST EXAMINATION: Lungs are clear to auscultation. No chest wall tenderness is noted on palpation or with deep breathing. HEART EXAMINATION: Regular rate and rhythm. S1, S2 heard. No murmurs, gallops or rub. ABDOMEN: Soft, nontender. Positive bowel sounds. EXTREMITIES: 2+ peripheral pulses, no lower extremity edema and no calf tenderness. NEUROLOGIC EXAMINATION: Patient is awake, alert and oriented x3. ASSESSMENT Syncope and dizziness with exertional shortness of breath History of TIA Bipolar and anxiety Obesity, BMI 34 Recent close head injury PLAN Orthostatic vital signs requested and reviewed, unremarkable. Recent echo reviewed, we will repeat one here today. Continue to observe on the monitor for an acute arrhythmia. Change antivert to scheduled dosing TID. Increase activity and ambulation. Thank you kindly for this consultation. Nurse Practitioner note has been reviewed, I agree with a documented findings and plan of care. Patient was seen and examined. Past Medical History Past Medical History: No Reported History Additional Past Medical History / Comment(s): pt. states they have had TIA in 2014, 2017, august 30 2019, pseudoseziures, bipolar 1, anxiety History of Any Multi-Drug Resistant Organisms: None Reported Past Surgical History: Section, Cholecystectomy, Tonsillectomy, Tubal Ligation Additional Past Surgical History / Comment(s): fundaplication, laproscopic scar tissue removal Past Anesthesia/Blood Transfusion Reactions: No Reported Reaction Past Psychological History: Anxiety, Bipolar Smoking Status: Never smoker Past Alcohol Use History: None Reported Past Drug Use History: Marijuana - Past Family History Mother Family Medical History: Congestive Heart Failure (CHF) Sister(s) Additional Family Medical History / Comment(s): Lupus Brother(s) Additional Family Medical History / Comment(s): cystic fibrosis Medications and Allergies Home Medications Medication Instructions Recorded Confirmed Type Atorvastatin [Lipitor] 10 mg PO HS 08/29/19 10/07/19 History Desvenlafaxine [Desvenlafaxine ER] 50 mg PO DAILY 08/29/19 10/07/19 History Pantoprazole Sodium [Protonix] 20 mg PO BID 08/29/19 10/07/19 History Topiramate [Topamax] 50 mg PO HS 08/29/19 10/07/19 History traZODone HCL 100 mg PO HS 01/24/20 03/03/20 History Meclizine [Antivert] 25 mg PO TID PRN #30 tab 08/30/19 10/07/19 Rx Aspirin EC [Ecotrin Low Dose] 81 mg PO DAILY 10/07/19 10/07/19 History Allergies Allergy/AdvReac Type Severity Reaction Status Date / Time duloxetine Allergy Rash/Hives Verified 10/07/19 21:32 gluten Allergy Swelling Verified 10/07/19 21:32 phenytoin [From Dilantin] Allergy Unknown Verified 10/07/19 21:32 shellfish derived [Shellfish] Allergy Anaphylaxis Verified 10/07/19 21:32 Physical Exam Vitals: Vital Signs Temp Pulse Pulse Pulse Pulse Pulse Resp 10/08/19 09:00 71 82 55 L 10/08/19 07:44 97.7 F 54 L 18 10/08/19 04:00 98.3 F 63 18 10/08/19 00:00 97.7 F 60 18 10/07/19 20:40 98.2 F 70 18 10/07/19 20:34 67 18 10/07/19 19:30 97.5 F L 60 16 10/07/19 18:10 59 L 17 10/07/19 16:42 101 H 10/07/19 15:02 98.3 F 66 17 BP BP BP BP BP Pulse Ox 10/08/19 09:00 129/93 114/80 121/81 10/08/19 07:44 110/70 94 L 10/08/19 04:00 83/48 99 10/08/19 00:00 113/75 95 10/07/19 20:40 130/85 100 10/07/19 20:34 125/90 96 10/07/19 19:30 121/90 97 10/07/19 18:10 129/87 96 10/07/19 16:42 97 10/07/19 15:02 131/96 97 Intake and Output 10/07/19 10/08/19 10/08/19 22:59 06:59 14:59 Other: Voiding Method Toilet Toilet # Voids 2 # Bowel Movements 1 Weight 96.615 kg 97 kg Results 10/07/19 15:15 10/07/19 15:15 Cardiac Enzymes 10/07/19 10/07/19 Range/Units 15:15 15:15 AST 29 (14-36) U/L Troponin I <0.012 (0.000-0.034) ng/mL Coagulation 10/07/19 Range/Units 15:15 PT 9.9 (9.0-12.0) sec APTT 23.0 (22.0-30.0) sec Lipids 10/08/19 Range/Units 09:12 Triglycerides 119 (<150) mg/dL Cholesterol 147 (<200) mg/dL HDL Cholesterol 35 L (40-60) mg/dL CBC 10/07/19 Range/Units 15:15 WBC 4.6 (3.8-10.6) k/uL RBC 4.45 (3.80-5.40) m/uL Hgb 13.7 (11.4-16.0) gm/dL Hct 42.1 (34.0-46.0) % Plt Count 173 (150-450) k/uL Comprehensive Metabolic Panel 10/07/19 Range/Units 15:15 Sodium 138 (137-145) mmol/L Potassium 4.2 (3.5-5.1) mmol/L Chloride 106 (98-107) mmol/L Carbon Dioxide 22 (22-30) mmol/L BUN 16 (7-17) mg/dL Creatinine 0.70 (0.52-1.04) mg/dL Glucose 89 (74-99) mg/dL Calcium 9.4 (8.4-10.2) mg/dL AST 29 (14-36) U/L ALT 44 H (4-34) U/L Alkaline Phosphatase 67 (38-126) U/L Total Protein 7.2 (6.3-8.2) g/dL Albumin 4.3 (3.5-5.0) g/dL Current Medications Generic Name Dose Route Start Last Admin Trade Name Freq PRN Reason Stop Dose Admin Aspirin 81 mg 10/08/19 09:00 10/08/19 09:15 Aspirin PO 81 mg DAILY DWIGHT Administration Atorvastatin Calcium 10 mg 10/07/19 22:30 10/07/19 22:50 Lipitor PO 10 mg HS DWIGHT Administration Desvenlafaxine Succinate 50 mg 10/08/19 09:00 10/08/19 09:15 Pristiq Er PO 50 mg DAILY DWIGHT Administration Sodium Chloride 1,000 mls @ 75 mls/hr 10/07/19 18:30 10/07/19 22:50 Saline 0.9% IV 75 mls/hr .[id number] DWIGHT Administration Meclizine HCl 25 mg 10/08/19 09:00 10/08/19 09:15 Antivert PO 25 mg TID DWIGHT Administration Naloxone HCl 0.2 mg 10/07/19 18:16 Narcan IV Q2M PRN Opioid Reversal Ondansetron HCl 4 mg 10/07/19 18:16 Zofran IVP Q8HR PRN Nausea And Vomiting Pantoprazole Sodium 40 mg 10/08/19 09:00 10/08/19 09:15 Protonix PO 40 mg BID DWIGHT Administration Topiramate 50 mg 10/07/19 22:30 10/07/19 22:50 Topamax PO 50 mg HS DWIGHT Administration Trazodone HCl 100 mg 10/07/19 22:30 10/07/19 22:50 Desyrel PO 100 mg HS DWIGHT Administration Intake and Output 10/07/19 10/08/19 10/08/19 22:59 06:59 14:59 Other: Voiding Method Toilet Toilet # Voids 2 # Bowel Movements 1 Weight 96.615 kg 97 kg 10/07/19 15:15 10/07/19 15:15
[2019-10-08 21:33] VITALS: RESP 18
[2019-10-08] MEDS: ATORVASTATIN 10 MG TAB PO SCH (21:35)
[2019-10-08] MEDS: traZODone HCL 100 MG TAB PO SCH (21:35)
[2019-10-08] MEDS: TOPIRAMATE 25 MG TAB PO SCH (21:35)
[2019-10-08] MEDS: SODIUM CHLORIDE 0.9% 1,000 ML IV SCH ×2 (21:35→21:38)
--- NOTE | 2019-10-08 22:26 | P.HPIM ---
History of Present Illness H&P Date: 10/08/19 Chief Complaint: dizziness, dyspnea Marielena Perkins is a 44 yo F with PMH of bipolar disorder, anxiety, pseudoseizures who presented to the ED complaining of episodic dizziness, dyspnea with exertion, diaphoresis increasing in frequency over the past few weeks. She states things h ave progressed to the point that she gets short of breath even walking short distances such as around the grocery store. She also complains of episodes that she will become flushed, dipahoretic, and experience palpitations and had been experiencing this throughout the day yesterday. She came to clinic with these concerns and complained of chest pain. An EKG showed sinus tachycardia without ST changes. She was advised to present to the ED for cardiac evaluation but in the parking lot became dizzy and collapsed. She was then brought to the hospital via EMS. In the ED her vitals were stable, trop negative, EKG with NSR. Review of Systems All systems: negative Constitutional: Reports sweats, Reports weakness, Denies chills, Denies fever Eyes: denies blurred vision, denies pain Ears, nose, mouth and throat: Denies headache, Denies sore throat Cardiovascular: Reports chest pain, Reports dyspnea on exertion, Reports irregular heart beat, Reports lightheadedness, Reports palpitations, Denies shortness of breath Respiratory: Denies cough Gastrointestinal: Denies abdominal pain, Denies diarrhea, Denies nausea, Denies vomiting Genitourinary: Denies dysuria, Denies hematuria Musculoskeletal: Denies myalgias Integumentary: Denies pruritus, Denies rash Neurological: Denies numbness, Denies weakness Psychiatric: Denies anxiety, Denies depression Endocrine: Denies fatigue, Denies weight change Past Medical History Past Medical History: No Reported History Additional Past Medical History / Comment(s): pt. states they have had TIA in 2014, 2017, august 30 2019, pseudoseziures, bipolar 1, anxiety History of Any Multi-Drug Resistant Organisms: None Reported Past Surgical History: Section, Cholecystectomy, Tonsillectomy, Tubal Ligation Additional Past Surgical History / Comment(s): fundaplication, laproscopic scar tissue removal Past Anesthesia/Blood Transfusion Reactions: No Reported Reaction Past Psychological History: Anxiety, Bipolar Smoking Status: Never smoker Past Alcohol Use History: None Reported Past Drug Use History: Marijuana - Past Family History Mother Family Medical History: Congestive Heart Failure (CHF) Sister(s) Additional Family Medical History / Comment(s): Lupus Brother(s) Additional Family Medical History / Comment(s): cystic fibrosis Medications and Allergies Home Medications Medication Instructions Recorded Confirmed Type Atorvastatin [Lipitor] 10 mg PO HS 08/29/19 10/07/19 History Desvenlafaxine [Desvenlafaxine ER] 50 mg PO DAILY 08/29/19 10/07/19 History Pantoprazole Sodium [Protonix] 20 mg PO BID 08/29/19 10/07/19 History Topiramate [Topamax] 50 mg PO HS 08/29/19 10/07/19 History traZODone HCL 100 mg PO HS 08/29/19 10/07/19 History Meclizine [Antivert] 25 mg PO TID PRN #30 tab 08/30/19 10/07/19 Rx Aspirin EC [Ecotrin Low Dose] 81 mg PO DAILY 10/07/19 10/07/19 History Allergies Allergy/AdvReac Type Severity Reaction Status Date / Time duloxetine Allergy Rash/Hives Verified 10/07/19 21:32 gluten Allergy Swelling Verified 10/07/19 21:32 phenytoin [From Dilantin] Allergy Unknown Verified 10/07/19 21:32 shellfish derived [Shellfish] Allergy Anaphylaxis Verified 10/07/19 21:32 Physical Exam Vitals: Vital Signs Temp Pulse Pulse Pulse Pulse Resp BP 10/08/19 20:00 98.2 F 59 L 18 10/08/19 16:43 97.9 F 62 16 10/08/19 12:00 98.2 F 68 10/08/19 09:00 71 82 55 L 129/93 10/08/19 07:44 97.7 F 54 L 18 10/08/19 04:00 98.3 F 63 18 10/08/19 00:00 97.7 F 60 18 BP BP BP Pulse Ox 10/08/19 20:00 131/79 97 10/08/19 16:43 138/87 98 10/08/19 12:00 124/81 97 10/08/19 09:00 114/80 121/81 10/08/19 07:44 110/70 94 L 10/08/19 04:00 83/48 99 10/08/19 00:00 113/75 95 Intake and Output 10/08/19 10/08/19 10/08/19 06:59 14:59 22:59 Other: Voiding Method Toilet Toilet # Voids 2 1 1 # Bowel Movements 1 Weight 97 kg General: well nourished, well developed, NAD. Vitals reviewed Eyes: PERRL, EOMI, conjunctiva normal HENT: normocephalic, mucus membranes moist Neck: supple, no JVD Lungs: normal respiratory effort, no wheezes or rales CV: Regular rate and rhythm, no murmur. Peripheral pulses 2+ Abdomen: soft, nondistended, no organomegaly Lymph: no cervical or axillary LAD Skin: warm and dry. Neuro: A&Ox3, normal mood and affect Results CBC & Chem 7: 10/07/19 15:15 10/07/19 15:15 Labs: Abnormal Lab Results - Last 24 Hours (Table) 10/08/19 Range/Units 09:12 HDL Cholesterol 35 L (40-60) mg/dL Thrombosis Risk Factor Assmnt - Choose All That Apply Any of the Below Risk Factors Present?: Yes Each Factor Represents 1 point: Age 41-60 years, Obesity (BMI >25) Other Risk Factors: No Other congenital or acquired thrombophilia - If yes, enter type in comment: No Thrombosis Risk Factor Assessment Total Risk Factor Score: 2 Thrombosis Risk Factor Assessment Level: Low Risk Assessment and Plan (1) Bipolar disorder in partial remission Current Visit: Yes Status: Acute Code(s): F31.70 - BIPOLAR DISORD, CURRENTLY IN REMIS, MOST RECENT EPISODE UNSP SNOMED Code(s): 5600200 (2) Anxiety disorder Current Visit: Yes Status: Acute Code(s): F41.9 - ANXIETY DISORDER, UNSPECIFIED SNOMED Code(s): 738018902 (3) Pseudoseizure Current Visit: Yes Status: Acute Code(s): F44.5 - CONVERSION DISORDER WITH SEIZURES OR CONVULSIONS SNOMED Code(s): 743204260 (4) Exertional dyspnea Current Visit: Yes Status: Acute Code(s): R06.09 - OTHER FORMS OF DYSPNEA SNOMED Code(s): 84494497 (5) Lightheadedness Current Visit: Yes Status: Acute Code(s): R42 - DIZZINESS AND GIDDINESS SNOMED Code(s): 855847018 (6) Syncope Current Visit: Yes Status: Acute Code(s): R55 - SYNCOPE AND COLLAPSE SNOMED Code(s): 914854892 Plan: 1. Exertional dizziness, chest pain, palpitations and shortness of breath. Without other significant findings. Cardiology consulted for evaluation. Endocrine evaluation negative. Consider panic attack 2. Bipolar disorder. Continue pristiq 3. Pseudosiezures. continue topamax
[2019-10-09 03:51] VITALS: BP 116/58
[2019-10-09 08:19] VITALS: PULSE 65; TEMP 98.2
[2019-10-09] MEDS: PANTOPRAZOLE 40 MG TABLET PO SCH (08:26)
[2019-10-09] MEDS: SODIUM CHLORIDE 0.9% 1,000 ML IV SCH (08:26)
[2019-10-09] MEDS: ASPIRIN 81 MG PO SCH (08:26)
[2019-10-09] MEDS: DESVENLAFAXINE SUCCINATE 50 MG TAB.ER.24H PO SCH (08:26)
[2019-10-09] MEDS: MECLIZINE 25 MG TAB PO SCH (08:26)
--- NOTE | 2019-10-09 10:00 | ECHOF ---
Referral Reason:dizziness MEASUREMENTS -------- HEIGHT: 167.6 cm WEIGHT: 96.6 kg BP: 129/93 RVIDd: 3.3 cm (< 3.3) IVSd: 1.1 cm (0.6 - 1.1) LVIDd: 4.7 cm (3.9 - 5.3) LVPWd: 0.9 cm (0.6 - 1.1) IVSs: 1.7 cm LVIDs: 3.0 cm LVPWs: 1.3 cm LA Diam: 3.0 cm (2.7 - 3.8) IVSd: 1.2 cm (0.6 - 1.1) LVIDd: 5.1 cm (3.9 - 5.3) LVPWd: 1.0 cm (0.6 - 1.1) IVSs: 1.8 cm LVIDs: 3.1 cm LVPWs: 1.9 cm EDV(Teich): 121 ml ESV(Teich): 37 ml EF(Teich): 70 % %FS: 40 % SV(Teich): 85 ml Ao Diam: 4.1 cm (2.0 - 3.7) AV Cusp: 2.2 cm (1.5 - 2.6) LA Diam: 3.5 cm (2.7 - 3.8) MV EXCURSION: 16.757 mm (> 18.000) MV EF SLOPE: 92 mm/s (70 - 150) EPSS: 0.7 cm MV E Alfredito: 1.09 m/s MV DecT: 276 ms MV A Alfredito: 0.69 m/s MV E/A Ratio: 1.59 FINDINGS -------- Sinus rhythm. This was a technically good study. LV size, wall thickness and systolic function are normal, with an EF greater than 55%. The right ventricle is normal in size and function. The left atrium is normal in size. The right atrium is normal in size. Interatrial and interventricular septum intact. The aortic valve is trileaflet and appears structurally normal. There is mild aortic valve sclerosi s. Normal appearing mitral valve. The tricuspid valve appears structurally normal. No regurgitation noted Pulmonic valve appears structurally normal. The aortic root, ascending aorta and aortic arch are normal. The pericardium is normal. CONCLUSIONS -------- 1. Sinus rhythm. 2. This was a technically good study. 3. LV size, wall thickness and systolic function are normal, with an EF greater than 55%. 4. The right ventricle is normal in size and function. 5. The left atrium is normal in size. 6. The right atrium is normal in size. 7. Interatrial and interventricular septum intact. 8. The aortic valve is trileaflet and appears structurally normal. 9. There is mild aortic valve sclerosis. 10. Normal appearing mitral valve. 11. The tricuspid valve appears structurally normal. 12. No regurgitation noted 13. Pulmonic valve appears structurally normal. 14. The aortic root, ascending aorta and aortic arch are normal. 15. The pericardium is normal. CARE PROVIDER: Guillermo Leyva RDCS
--- NOTE | 2019-10-09 10:19 | P.PN ---
Subjective HISTORY OF PRESENTING ILLNESS This is a pleasant 44-year-old female past medical history significant for TIA, closed head injury, bipolar, anxiety, seizure disorder and obesity. He denies prior history of coronary artery disease and does not follow in the office with a exterminator helper. She is seen and examined sitting in bed in no acute distress. She states overall her dizziness has greatly improved since admission. She denies chest pain, dizziness, shortness of breath or palpitations. Echocardiogram obtained reveals preserved LV systolic function with ejection fraction greater than 55% blood pressure 116/58 heart rate 53 afebrile maintaining oxygen saturation on room air. Telemetry tracings have been unremarkable for an acute arrhythmia. PHYSICAL EXAMINATION CONSTITUTIONAL: No apparent distress. HEENT: Head is normocephalic. Pupils are equal, round. Sclerae anicteric. Mucous membranes of the mouth are moist. No JVD. No carotid bruit. CHEST EXAMINATION: Lungs are clear to auscultation. No chest wall tenderness is noted on palpation or with deep breathing. HEART EXAMINATION: Regular rate and rhythm. S1, S2 heard. No murmurs, gallops or rub. EXTREMITIES: 2+ peripheral pulses, no lower extremity edema and no calf t enderness. ASSESSMENT Syncope and dizziness with exertional shortness of breath History of TIA Bipolar and anxiety Obesity, BMI 34 Recent close head injury PLAN Stable for discharge from a cardiac perspective. Recommend regularly scheduled dosing of Antivert. Follow-up with Dr. Hammer in the office in 2-3 weeks. Nurse Practitioner note has been reviewed, I agree with a documented findings and plan of care. Patient was seen and examined. Objective - Vital Signs Vital signs: Vital Signs Temp 98.2 F 10/09/19 08:00 Pulse 65 10/09/19 08:00 Resp 18 10/09/19 08:00 BP 116/58 10/09/19 03:50 Pulse Ox 93 L 10/09/19 03:50 Intake & Output 10/08/19 10/09/19 10/09/19 18:59 06:59 18:59 Other: Voiding Method Toilet Toilet # Voids 1 2 - Labs CBC & Chem 7: 10/07/19 15:15 10/07/19 15:15
[2019-10-09] MEDS ORDERED: PROPRANOLOL 20 MG TAB PO SCH (10:30)
--- NOTE | 2019-10-09 10:50 | P.DS ---
Providers Date of admission: 10/07/19 18:30 Expected date of discharge: 10/09/19 Attending physician: Adalberto Carney MD Consults: 10/07/19 18:17 Consult Physician Urgent Consulting Provider: Hong Murillo Consult Reason/Comments: Exertional dyspnea, syncope Do you want consulting provider notified?: Yes Primary care physician: Adalberto Carney MD Hospital Course: Final Diagnoses: (1) Bipolar disorder in partial remission Current Visit: Yes Status: Acute Code(s): F31.70 - BIPOLAR DISORD, CURRENTLY IN REMIS, MOST RECENT EPISODE UNSP SNOMED Code(s): 8743573 (2) Anxiety disorder, possible panic attack Current Visit: Yes Status: Acute Code(s): F41.9 - ANXIETY DISORDER, UNSPECIFIED SNOMED Code(s): 241428882 (3) Pseudoseizure Current Visit: Yes Status: Acute Code(s): F44.5 - CONVERSION DISORDER WITH SEIZURES OR CONVULSIONS SNOMED Code(s): 403796056 (4) Exertional dyspnea Current Visit: Yes Status: Acute Code(s): R06.09 - OTHER FORMS OF DYSPNEA SNOMED Code(s): 73081586 (5) Lightheadedness Current Visit: Yes Status: Acute Code(s): R42 - DIZZINESS AND GIDDINESS SNOMED Code(s): 710464557 (6) Syncope Current Visit: Yes Status: Acute Code(s): R55 - SYNCOPE AND COLLAPSE SNOMED Code(s): 416599648 Hospital course:Marielena Perkins is a 44 yo F with PMH of bipolar disorder, anxiety, pseudoseizures who presented to the ED complaining of episodic dizziness, dyspnea with exertion, diaphoresis increasing in frequency over the past few weeks. She states things have progressed to the point that she gets short of breath even walking short distances such as around the grocery store. She also complains of episodes that she will become flushed, dipahoretic, and experience palpitations and had been experiencing this throughout the day yesterday. She came to clinic with these concerns and complained of chest pain. An EKG showed sinus tachycardia without ST changes. She was advised to present to the ED for cardiac evaluation but in the parking lot became dizzy and collapsed. She was then brought to the hospital via EMS. In the ED her vitals were stable, trop negative, EKG with NSR. Evaluated by cardiology.Echocardiogram reported preserved LV systolic function with ejection fraction greater than 55%.Telemetry tracings have been unremarkable for an acute arrhythmia. Significant clinical improvement. Cleared by cardiology for discharge. We will discharge on trial of propanolol related to suspected symptomatic SUDEEP activation. General:A&O X 3, NAD. Lungs: normal respiratory effort, no wheezes or rales CV: Regular rate and rhythm, no murmur. Peripheral pulses 2+ Abdomen: soft, nondistended, no organomegaly.+BS Neuro: No Focal deficits The impression and plan of care has been dictated as directed. : I performed a history and examination of this patient, discussed the same with the dictator. I agree with the dictator's note ,documented as a scribe. Any additional findings or plans will be noted. Patient Condition at Discharge: Stable Plan - Discharge Summary Discharge Rx Participant: No New Discharge Prescriptions: New Propranolol [Inderal] 60 mg PO DAILY #90 tab Continue Atorvastatin [Lipitor] 10 mg PO HS Desvenlafaxine [Desvenlafaxine ER] 50 mg PO DAILY Pantoprazole Sodium [Protonix] 20 mg PO BID Topiramate [Topamax] 50 mg PO HS traZODone HCL 100 mg PO HS Meclizine [Antivert] 25 mg PO TID PRN #30 tab PRN Reason: Vertigo Aspirin EC [Ecotrin Low Dose] 81 mg PO DAILY Discharge Medication List Atorvastatin [Lipitor] 10 mg PO HS 08/29/19 [History] Desvenlafaxine [Desvenlafaxine ER] 50 mg PO DAILY 08/29/19 [History] Pantoprazole Sodium [Protonix] 20 mg PO BID 08/29/19 [History] Topiramate [Topamax] 50 mg PO HS 08/29/19 [History] traZODone HCL 100 mg PO HS 08/29/19 [History] Meclizine [Antivert] 25 mg PO TID PRN #30 tab 08/30/19 [Rx] Aspirin EC [Ecotrin Low Dose] 81 mg PO DAILY 10/07/19 [History] Propranolol [Inderal] 60 mg PO DAILY #90 tab 10/09/19 [Rx] Follow up Appointment(s)/Referral(s): Adalberto Carney MD [Primary Care Provider] - 10/21/19 Wiley Hammer MD [STAFF PHYSICIAN] - 10/30/19 4:00 pm (apt made for 4pm)
== END 2019-10-09 11:09 | disposition home or self-care (01) ==
LOC: EC 14:54 → 1SOBS 18:30
PROVIDERS: ADMIT Family Medicine; ATTEND Family Medicine
DX: F31.9 Bipolar disorder, unspecified (principal); F41.9 Anxiety disorder, unspecified; F44.5 Conversion disorder with seizures or convulsions; R06.09 Other forms of dyspnea; R42 Dizziness and giddiness; R55 Syncope and collapse; R61 Generalized hyperhidrosis; S09.90XA Unspecified injury of head, initial encounter; X58.XXXA Exposure to other specified factors, initial encounter; E66.9 Obesity, unspecified; Z68.34 Body mass index [BMI] 34.0-34.9, adult; I35.0 Nonrheumatic aortic (valve) stenosis; Z86.73 Personal history of transient ischemic attack (TIA), and cerebral infarction without residual deficits; Z82.49 Family history of ischemic heart disease and other diseases of the circulatory system; Z84.89 Family history of other specified conditions; Z79.899 Other long term (current) drug therapy; Z79.82 Long term (current) use of aspirin; Z91.013 Allergy to seafood; Z88.8 Allergy status to other drugs, medicaments and biological substances
CPT/HCPCS: 93005 ×2; 96360; 99285; 36415; 93306; 85379 ×2; 83880; 80061; 80053; 82533; 83735; 84484; 85025; 85610; 85730; 81001; G0378 ×3

== ENCOUNTER 2019-12-19 11:13 | Inpatient (IN) | payer MEDICARE, MEDICAID ==
[2019-12-19] MEDS ORDERED: LORazepam 1 MG TAB PO STA (11:43)
--- NOTE | 2019-12-19 11:54 | ED ---
Psych HPI - General Source: patient Mode of arrival: ambulatory <Dinah Miles - Last Filed: 12/19/19 14:29> <Josefina Tomlinson - Last Filed: 12/19/19 15:40> - General Chief Complaint: Psychiatric Symptoms Stated Complaint: sent by pcp Time Seen by Provider: 12/19/19 11:20 - History of Present Illness Initial Comments: 44-year-old female presenting today for chief complaint of suicidal ideation. Patient states she has overdosed in the past secondary to suicidal ideation with plan. Patient states that she has been thinking about overdosing on her propranolol for the past day she states she's had increased life stressors. Patient denies feeling unsafe denies homicidal ideation. Patient denies ingesting any excess amount of medications or suicide attempts. Patient states she has only had thoughts. Patient has no other complaints aside from depression and anxiety and suicidal ideation. Remaining review of systems negative upon arrival patient is tearful however she is very cooperative and voluntarily would like to seek psychatric care. Patient currently on pristiq 75mg daily, topamax 50mg @ night, clonidine 0.5 BID, propanolol. Patient denies any recent fever, chills, shortness of breath, chest pain, back pain, abdominal pain, nausea or vomiting, numbness or tingling, dysuria or hematuria, constipation or diarrhea, headaches or visual changes, or any other complaints. (Dinah Miles) - Related Data Home Medications Medication Instructions Recorded Confirmed Atorvastatin [Lipitor] 10 mg PO HS 08/29/19 10/07/19 Desvenlafaxine [Desvenlafaxine ER] 50 mg PO DAILY 08/29/19 10/07/19 Pantoprazole Sodium [Protonix] 20 mg PO BID 08/29/19 10/07/19 Topiramate [Topamax] 50 mg PO HS 08/29/19 10/07/19 traZODone HCL 100 mg PO HS 08/29/19 10/07/19 Aspirin EC [Ecotrin Low Dose] 81 mg PO DAILY 10/07/19 10/07/19 Previous Rx's Medication Instructions Recorded Meclizine [Antivert] 25 mg PO TID PRN #30 tab 08/30/19 Propranolol [Inderal] 60 mg PO DAILY #90 tab 10/09/19 Allergies Allergy/AdvReac Type Severity Reaction Status Date / Time duloxetine Allergy Rash/Hives Verified 12/19/19 11:20 gluten Allergy Swelling Verified 12/19/19 11:20 phenytoin [From Dilantin] Allergy Unknown Verified 12/19/19 11:20 shellfish derived [Shellfish] Allergy Anaphylaxis Verified 12/19/19 11:20 Review of Systems ROS Other: All systems not noted in ROS Statement are negative. <DavieangelaDinah L - Last Filed: 12/19/19 14:29> ROS Other: All systems not noted in ROS Statement are negative. <Josefina Tomlinson - Last Filed: 12/19/19 15:40> ROS Statement: Those systems with pertinent positive or pertinent negative responses have been documented in the HPI. Past Medical History Past Medical History: CVA/TIA Additional Past Medical History / Comment(s): pt. states they have had TIA in 2014, 2017, august 30 2019, pseudoseziures, bipolar 1, anxiety History of Any Multi-Drug Resistant Organisms: None Reported Past Surgical History: Section, Cholecystectomy, Tonsillectomy, Tubal Ligation Additional Past Surgical History / Comment(s): fundaplication, laproscopic scar tissue removal Past Anesthesia/Blood Transfusion Reactions: No Reported Reaction Past Psychological History: Anxiety, Bipolar, Depression Smoking Status: Never smoker Past Alcohol Use History: None Reported Past Drug Use History: None Reported - Past Family History Mother Family Medical History: Congestive Heart Failure (CHF) Sister(s) Additional Family Medical History / Comment(s): Lupus Brother(s) Additional Family Medical History / Comment(s): cystic fibrosis <GingerDniah L - Last Filed: 12/19/19 14:29> General Exam Limitations: no limitations <GingerDinah L - Last Filed: 12/19/19 14:29> - General Exam Comments Initial Comments: General: The patient is awake and alert Eye: +3 mm pupils are equal, round and reactive to light, extra-ocular movements are intact. No nystagmus. There is normal conjunctiva bilaterally. No signs of icterus. Ears, nose, mouth and throat: There are moist mucous membranes and no oral lesions. Neck: The neck is supple, there is no tenderness or JVD. Cardiovascular: There is a regular rate and rhythm. No murmur, rub or gallop is appreciated. Respiratory: Lungs are clear to auscultation, respirations are non-labored, breath sounds are equal. No wheezes, stridor, rales, or rhonchi. Gastrointestinal: Soft, non-distended, non-tender abdomen without masses or organomegaly noted. There is no rebound or guarding present. Musculoskeletal: Normal ROM, no tenderness. Strength 5/5. Sensation intact. Radial pulses equal bilaterally 2+. Neurological: A&O x 3. CN II-XII intact grossly, There are no obvious motor or sensory deficits. Coordination appears grossly intact. Speech is normal. Skin: Skin is warm and dry and no rashes or lesions are noted. Psychiatric: Cooperative, tearful (Dinah Miles) Course <Dinah Miles - Last Filed: 12/19/19 14:29> Vital Signs 12/19/19 12/19/19 11:15 15:04 Temperature 98.1 F 98 F Pulse Rate 67 65 Respiratory 18 18 Rate Blood Pressure 105/57 O2 Sat by Pulse 98 99 Oximetry - Reevaluation(s) Reevaluation #1: Patient has history of "pseudo seizures" patient has a "seizure" patient had findings such as hand drop. patient was clenching fists and holding straight kicking legs. Patient when asked and sternal rub immediately came out of it without a post ictal phase. 12/19/19 13:31 (Dinah Miles) Reevaluation #2: sign out to Josefina Tomlinson PA-C . 12/19/19 14:29 (Dinah Miles) Medical Decision Making - Lab Data Result diagrams: 12/19/19 13:25 12/19/19 13:25 <Dinah Miles - Last Filed: 12/19/19 14:29> - Lab Data Result diagrams: 12/19/19 13:25 12/19/19 13:25 <Josefina Tomlinson - Last Filed: 12/19/19 15:40> - Medical Decision Making 44-year-old female presenting for suicidal ideation. Patient has had suicidal attempts in the past. She had on multiple psychiatric medications. Patient sees a psychiatrist as well as a therapist on a reoccurring basis. Patient states she has increasing life stressors which has caused an increase in her suicidal ideation with plan to attempt overdose with propranolol. Patient denies any attempt prior to arrival to emergency department. Patient does not appear altered or in acute distress vital signs stable she is very cooperative. Patient examinated, medically cleared for psychiatric evaluation. (Dinah Miles) Patient was evaluated by EPS. Patient will be admitted here. Case discussed with Dr. Patricia. (Josefina Tomlinson) - Lab Data Lab Results 12/19/19 12/19/19 12/19/19 Range/Units 11:28 11:28 13:25 WBC 6.0 (3.8-10.6) k/uL RBC 4.60 (3.80-5.40) m/uL Hgb 13.7 (11.4-16.0) gm/dL Hct 44.3 (34.0-46.0) % MCV 96.3 (80.0-100.0) fL MCH 29.8 (25.0-35.0) pg MCHC 31.0 (31.0-37.0) g/dL RDW 12.8 (11.5-15.5) % Plt Count 192 (150-450) k/uL Neutrophils % 58 % Lymphocytes % 35 % Monocytes % 4 % Eosinophils % 2 % Basophils % 1 % Neutrophils # 3.5 (1.3-7.7) k/uL Lymphocytes # 2.1 (1.0-4.8) k/uL Monocytes # 0.2 (0-1.0) k/uL Eosinophils # 0.1 (0-0.7) k/uL Basophils # 0.0 (0-0.2) k/uL Sodium (137-145) mmol/L Potassium (3.5-5.1) mmol/L Chloride (98-107) mmol/L Carbon Dioxide (22-30) mmol/L Anion Gap mmol/L BUN (7-17) mg/dL Creatinine (0.52-1.04) mg/dL Est GFR (CKD-EPI)AfAm (>60 ml/min/1.73 sqM) Est GFR (CKD-EPI)NonAf (>60 ml/min/1.73 sqM) Glucose (74-99) mg/dL Calcium (8.4-10.2) mg/dL Total Bilirubin (0.2-1.3) mg/dL AST (14-36) U/L ALT (4-34) U/L Alkaline Phosphatase (38-126) U/L Total Protein (6.3-8.2) g/dL Albumin (3.5-5.0) g/dL Urine Color Yellow Urine Appearance Cloudy H (Clear) Urine pH 6.0 (5.0-8.0) Ur Specific [place] 1.026 (1.001-1.035) Urine Protein Trace H (Negative) Urine Glucose (UA) Negative (Negative) Urine Ketones Negative (Negative) Urine Blood Negative (Negative) Urine Nitrite Negative (Negative) Urine Bilirubin Negative (Negative) Urine Urobilinogen 2.0 (<2.0) mg/dL Ur Leukocyte Esterase Moderate H (Negative) Urine RBC 1 (0-5) /hpf Urine WBC 11 H (0-5) /hpf Ur Squamous Epith Cells 8 H (0-4) /hpf Urine Bacteria Rare H (None) /hpf Urine Mucus Moderate H (None) /hpf Urine HCG, Qual Not Detected (Not Detectd) Salicylates mg/dL Urine Opiates Screen Not Detected (NotDetected) Ur Oxycodone Screen Not Detected (NotDetected) Urine Methadone Screen Not Detected (NotDetected) Ur Propoxyphene Screen Not Detected (NotDetected) Acetaminophen ug/mL Ur Barbiturates Screen Not Detected (NotDetected) U Tricyclic Antidepress Not Detected (NotDetected) Ur Phencyclidine Scrn Detected H (NotDetected) Ur Amphetamines Screen Not Detected (NotDetected) U Methamphetamines Scrn Not Detected (NotDetected) U Benzodiazepines Scrn Detected H (NotDetected) Urine Cocaine Screen Not Detected (NotDetected) U Marijuana (THC) Screen Detected H (NotDetected) 12/19/19 Range/Units 13:25 WBC (3.8-10.6) k/uL RBC (3.80-5.40) m/uL Hgb (11.4-16.0) gm/dL Hct (34.0-46.0) % MCV (80.0-100.0) fL MCH (25.0-35.0) pg MCHC (31.0-37.0) g/dL RDW (11.5-15.5) % Plt Count (150-450) k/uL Neutrophils % % Lymphocytes % % Monocytes % % Eosinophils % % Basophils % % Neutrophils # (1.3-7.7) k/uL Lymphocytes # (1.0-4.8) k/uL Monocytes # (0-1.0) k/uL Eosinophils # (0-0.7) k/uL Basophils # (0-0.2) k/uL Sodium 137 (137-145) mmol/L Potassium 4.0 (3.5-5.1) mmol/L Chloride 108 H (98-107) mmol/L Carbon Dioxide 19 L (22-30) mmol/L Anion Gap 10 mmol/L BUN 10 (7-17) mg/dL Creatinine 0.76 (0.52-1.04) mg/dL Est GFR (CKD-EPI)AfAm >90 (>60 ml/min/1.73 sqM) Est GFR (CKD-EPI)NonAf >90 (>60 ml/min/1.73 sqM) Glucose 130 H (74-99) mg/dL Calcium 9.1 (8.4-10.2) mg/dL Total Bilirubin 0.6 (0.2-1.3) mg/dL AST 23 (14-36) U/L ALT 22 (4-34) U/L Alkaline Phosphatase 69 (38-126) U/L Total Protein 7.3 (6.3-8.2) g/dL Albumin 4.3 (3.5-5.0) g/dL Urine Color Urine Appearance (Clear) Urine pH (5.0-8.0) Ur Specific [place] (1.001-1.035) Urine Protein (Negative) Urine Glucose (UA) (Negative) Urine Ketones (Negative) Urine Blood (Negative) Urine Nitrite (Negative) Urine Bilirubin (Negative) Urine Urobilinogen (<2.0) mg/dL Ur Leukocyte Esterase (Negative) Urine RBC (0-5) /hpf Urine WBC (0-5) /hpf Ur Squamous Epith Cells (0-4) /hpf Urine Bacteria (None) /hpf Urine Mucus (None) /hpf Urine HCG, Qual (Not Detectd) Salicylates <1.0 mg/dL Urine Opiates Screen (NotDetected) Ur Oxycodone Screen (NotDetected) Urine Methadone Screen (NotDetected) Ur Propoxyphene Screen (NotDetected) Acetaminophen <10.0 ug/mL Ur Barbiturates Screen (NotDetected) U Tricyclic Antidepress (NotDetected) Ur Phencyclidine Scrn (NotDetected) Ur Amphetamines Screen (NotDetected) U Methamphetamines Scrn (NotDetected) U Benzodiazepines Scrn (NotDetected) Urine Cocaine Screen (NotDetected) U Marijuana (THC) Screen (NotDetected) Disposition Is patient prescribed a controlled substance at d/c from ED?: No Time of Disposition: 14:14 <Dinah Miles L - Last Filed: 12/19/19 14:29> Is patient prescribed a controlled substance at d/c from ED?: No Decision Date: 12/19/19 Decision Time: 15:40 <Josefina Tomlinson L - Last Filed: 12/19/19 15:40> Clinical Impression: Seizure, Depression, Suicidal ideation Disposition: TRANSFER TO PSYCH HOSP/UNIT Condition: Serious Referrals: Adalberto Carney MD [Primary Care Provider] - 1-2 days
[2019-12-19 12:25] LABS: Appearance,Urine Cloudy (Clear); Bacteria,Urine Rare /hpf; Bilirubin,Urine Negative (Negative); Blood,Urine Negative (Negative); Color,Urine Yellow; Glucose,Urine (UA) Negative (Negative); Ketones,Urine Negative (Negative); Leukocyte Esterase,Urine Moderate (Negative); Mucus,Urine Moderate /hpf; Nitrite,Urine Negative (Negative); Protein,Urine Trace (Negative); RBC,Urine 1 /hpf (0-5); Specific Gravity,Urine 1.026 (1.001-1.035); Squamous Epithelial Cell,Urine 8 /hpf (0-4); WBC,Urine 11 /hpf (0-5)
[2019-12-19 12:27] LABS: Amphetamine Screen,Urine Not Detected (NotDetected); Barbiturate Screen,Urine Not Detected (NotDetected); Benzodiazepines Screen,Urine Detected (NotDetected); Cocaine Screen,Urine Not Detected (NotDetected); Methadone Screen, Urine Not Detected (NotDetected); Opiate Screen,Urine Not Detected (NotDetected); Oxycodone Screen, Urine Not Detected (NotDetected); Phencyclidine Screen,Urine Detected (NotDetected); Tricyclic Antidepressant,Urine Not Detected (NotDetected); Urn Cannabinoid Scrn Detected (NotDetected)
[2019-12-19 13:58] LABS: Basophils % (A) 1 %; Eosinophils # (A) 0.1 k/uL (0-0.7); Eosinophils % (A) 2 %; HCT 44.3 % (34.0-46.0); HGB 13.7 gm/dL (11.4-16.0); Lymphocytes # (A) 2.1 k/uL (1.0-4.8); Lymphocytes % (A) 35 %; MCH 29.8 pg (25.0-35.0); MCV 96.3 fL (80.0-100.0); Monocytes # (A) 0.2 k/uL (0-1.0); Monocytes % (A) 4 %; Neutrophils # (A) 3.5 k/uL (1.3-7.7); Neutrophils % (A) 58 %; Platelet Count 192 k/uL (150-450); RDW 12.8 % (11.5-15.5)
[2019-12-19 14:11] LABS: ALT 22 U/L (4-34); AST 23 U/L (14-36); Acetaminophen <10.0 ug/mL; African American GFR (CKD) >90 (>60 ml/min/1.73 sqM); Albumin 4.3 g/dL (3.5-5.0); Alkaline Phosphatase 69 U/L (38-126); Anion Gap 10 mmol/L; Blood Urea Nitrogen 10 mg/dL (7-17); Calcium 9.1 mg/dL (8.4-10.2); Carbon Dioxide 19 mmol/L (22-30); Chloride 108 mmol/L (98-107); Glucose 130 mg/dL (74-99); Non-African American GFR(CKD) >90 (>60 ml/min/1.73 sqM); Salicylate <1.0 mg/dL; Sodium 137 mmol/L (137-145); Total Bilirubin 0.6 mg/dL (0.2-1.3); Total Protein 7.3 g/dL (6.3-8.2)
[2019-12-19] MEDS ORDERED: MAGNESIUM HYDROXIDE 2,400 MG/10 ML CUP PO PRN (15:49)
[2019-12-19] MEDS: LORazepam 1 MG TAB PO PRN (20:43)
[2019-12-19] MEDS: ARIPiprazole 5 MG TAB PO SCH (20:44)
[2019-12-19] MEDS: TOPIRAMATE 100 MG TAB PO SCH (20:44)
[2019-12-19] MEDS: ATORVASTATIN 10 MG TAB PO SCH (20:44)
[2019-12-19] MEDS: traZODone HCL 100 MG TAB PO SCH (20:55)
[2019-12-20] MEDS: ASPIRIN 81 MG PO SCH (07:43)
[2019-12-20] MEDS: TOPIRAMATE 25 MG TAB PO SCH (07:43)
[2019-12-20] MEDS: LORazepam 1 MG TAB PO PRN (07:44)
[2019-12-20] MEDS ORDERED: DESVENLAFAXINE SUCCINATE 50 MG TAB.ER.24H PO SCH (09:00)
[2019-12-20] MEDS ORDERED: NICOTINE 14MG/24HR PATCH TRANSDERM SCH (09:00)
[2019-12-20] MEDS ORDERED: PNEUMOCOCCAL VACC-PNEUMOVAX 23 25 MCG/0.5 ML VIAL IM ONE (10:00)
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
--- NOTE | 2019-12-20 17:49 | P.CONS ---
History of Present Illness - Reason for Consult Consult date: 12/20/19 - Chief Complaint Suicidal ideation/depression - History of Present Illness 44-year-old female presenting today for chief complaint of suicidal ideation. Patient states she has overdosed in the past secondary to suicidal ideation with plan. Patient states that she has been thinking about overdosing on her propranolol for the past day she states she's had increased life stressors. Patient denies feeling unsafe denies homicidal ideation. Patient denies ingesting any excess amount of medications or suicide attempts. Patient states she has only had thoughts. Patient has no other complaints aside from depression and anxiety and suicidal ideation. Remaining review of systems negative upon arrival patient is tearful however she is very cooperative and voluntarily would like to seek psychatric care. Patient currently on pristiq 75mg daily, topamax 50mg @ night, clonidine 0.5 BID, propanolol. Patient denies any recent fever, chills, shortness of breath, chest pain, back pain, abdominal pain, nausea or vomiting, numbness or tingling, dysuria or hematuria, constipation or diarrhea, headaches or visual changes, or any other complaints. Review of Systems REVIEW OF SYSTEMS: CONSTITUTIONAL: No fever, no malaise, no fatigue. HEENT: No recent visual problems or hearing problems. Denied any sore throat. CARDIOVASCULAR: No chest pain, orthopnea, PND, no palpitations, no syncope. PULMONARY: No shortness of breath, no cough, no hemoptysis. GASTROINTESTINAL: No diarrhea, no nausea, no vomiting, no abdominal pain. NEUROLOGICAL: No headaches, no weakness, no numbness. HEMATOLOGICAL: Denies any bleeding or petechiae. GENITOURINARY: Denies any burning micturition, frequency, or urgency. MUSCULOSKELETAL/RHEUMATOLOGICAL: Denies any joint pain, swelling, or any muscle pain. ENDOCRINE: Denies any polyuria or polydipsia. The rest of the 14-point review of systems is negative. Past Medical History Past Medical History: CVA/TIA Additional Past Medical History / Comment(s): pt. states they have had TIA in 2014, 2017, august 30 2019, pseudoseziures, bipolar 1, anxiety History of Any Multi-Drug Resistant Organisms: None Reported Past Surgical History: Section, Cholecystectomy, Tonsillectomy, Tubal Ligation Additional Past Surgical History / Comment(s): fundaplication, laproscopic scar tissue removal Past Anesthesia/Blood Transfusion Reactions: No Reported Reaction Past Psychological History: Anxiety, Bipolar, Depression Smoking Status: Never smoker Past Alcohol Use History: None Reported Past Drug Use History: None Reported - Past Family History Mother Family Medical History: Congestive Heart Failure (CHF) Sister(s) Additional Family Medical History / Comment(s): Lupus Brother(s) Additional Family Medical History / Comment(s): cystic fibrosis Medications and Allergies Home Medications Medication Instructions Recorded Confirmed Type Atorvastatin [Lipitor] 10 mg PO HS 08/29/19 12/19/19 History Desvenlafaxine [Desvenlafaxine ER] 50 mg PO DAILY 08/29/19 12/19/19 History Pantoprazole Sodium [Protonix] 40 mg PO BID 08/29/19 12/19/19 History Topiramate [Topamax] 50 mg PO HS 08/29/19 12/19/19 History traZODone HCL 100 mg PO HS 08/29/19 12/19/19 History Aspirin EC [Ecotrin Low Dose] 81 mg PO DAILY 10/07/19 12/19/19 History ARIPiprazole [Abilify] 5 mg PO HS 12/19/19 12/19/19 History Propranolol HCl 60 mg PO BID@0900,1500 12/19/19 12/19/19 History Propranolol [Inderal] 40 mg PO HS 12/19/19 12/19/19 History clonazePAM [KlonoPIN] 0.5 mg PO BID 12/19/19 12/19/19 History Allergies Allergy/AdvReac Type Severity Reaction Status Date / Time duloxetine Allergy Rash/Hives Verified 12/19/19 16:31 gluten Allergy Swelling Verified 12/19/19 16:31 phenytoin [From Dilantin] Allergy Unknown Verified 12/19/19 16:31 shellfish derived [Shellfish] Allergy Anaphylaxis Verified 12/19/19 16:31 Physical Exam Vitals: Vital Signs Temp Pulse Pulse Resp BP BP Pulse Ox 12/20/19 13:00 97.9 F 12/20/19 06:47 98.5 F 57 L 16 101/54 94 L 12/19/19 23:08 97.3 F L 12/19/19 18:00 97.7 F 12/19/19 16:13 97.4 F L 75 16 108/72 12/19/19 15:04 98 F 65 18 105/57 99 Intake and Output 12/19/19 12/20/19 12/20/19 22:59 06:59 14:59 Other: Weight 99.337 kg PHYSICAL EXAMINATION: GENERAL: The patient is alert and oriented x3, not in any acute distress. Well developed, well nourished. HEENT: Pupils are round and equally reacting to light. EOMI. No scleral icterus. No conjunctival pallor. Normocephalic, atraumatic. No pharyngeal erythema. No thyromegaly. CARDIOVASCULAR: S1 and S2 present. No murmurs, rubs, or gallops. PULMONARY: Chest is clear to auscultation, no wheezing or crackles. ABDOMEN: Soft, nontender, nondistended, normoactive bowel sounds. No palpable organomegaly. MUSCULOSKELETAL: No joint swelling or deformity. EXTREMITIES: No cyanosis, clubbing, or pedal edema. NEUROLOGICAL: Gross neurological examination did not reveal any focal deficits. SKIN: No rashes. Results CBC & Chem 7: 12/19/19 13:25 12/19/19 13:25 Labs: Abnormal Lab Results - Last 24 Hours (Table) 12/19/19 12/20/19 Range/Units 13:25 07:08 Chloride 108 H (98-107) mmol/L Carbon Dioxide 19 L (22-30) mmol/L Glucose 130 H (74-99) mg/dL HDL Cholesterol 37 L (40-60) mg/dL Assessment and Plan Assessment: 1. Suicidal ideation; your management 2. Hyperlipidemia; continue home dose of atorvastatin 10 mg by mouth daily at bedtime 3. Gastroesophageal reflux disease/gastritis; Protonix 20 mg by mouth twice a day 4. History of CVA/TIA; continue aspirin 81 mg daily 5. Sleep disorder; patient remains on trazodone; reports that trazodone was increased to 150 mg by PCP; patient is advised to talk to primary psychiatrist for any adjustments DVT prophylaxis; early ambulation CODE STATUS; full code
[2019-12-20 19:05] LABS: Glucose,Whole Blood 131 mg/dL (75-99)
[2019-12-20 19:57] LABS: Hemoglobin A1C 5.8 % (4.0-6.0)
[2019-12-20] MEDS: ARIPiprazole 5 MG TAB PO SCH (20:49)
[2019-12-20] MEDS: traZODone HCL 100 MG TAB PO SCH (20:49)
[2019-12-20] MEDS: ATORVASTATIN 10 MG TAB PO SCH (20:49)
[2019-12-20] MEDS: TOPIRAMATE 100 MG TAB PO SCH (20:49)
[2019-12-20] MEDS: PROPRANOLOL 20 MG TAB PO SCH ×2 (20:49→21:54)
--- NOTE | 2019-12-20 21:22 | CT ---
EXAMINATION TYPE: CT brain wo con DATE OF EXAM: 12/20/2019 COMPARISON: 08/29/2019 HISTORY: fall Headache CT DLP: 981.7 mGycm Automated exposure control for dose reduction was used. Exam performed without contrast. Ventricles and sulci appear normal. There is no mass effect nor midline shift. There is no sign of in tracranial hemorrhage. The calvarium is intact. There is no evidence of cerebral edema. Skull base is intact. IMPRESSION: Negative unenhanced head CT scan. No change.
[2019-12-20] MEDS: MAG HYDROX/AL HYDROX/SIMETH 30 ML CUP PO PRN (22:02)
[2019-12-21] MEDS: ACETAMINOPHEN TAB 325 MG TAB PO PRN ×2 (02:37→21:00)
[2019-12-21] MEDS: DESVENLAFAXINE SUCCINATE 50 MG TAB.ER.24H PO SCH (08:21)
[2019-12-21] MEDS: ASPIRIN 81 MG PO SCH (08:21)
[2019-12-21] MEDS: TOPIRAMATE 25 MG TAB PO SCH (08:22)
[2019-12-21] MEDS: MAG HYDROX/AL HYDROX/SIMETH 30 ML CUP PO PRN (08:23)
[2019-12-21] MEDS: LORazepam 1 MG TAB PO PRN ×2 (09:38→21:03)
[2019-12-21] MEDS: PROPRANOLOL 20 MG TAB PO SCH ×3 (09:53→20:57)
--- NOTE | 2019-12-21 10:44 | P.PN ---
Progress Note - Text Interval history: The patient is found in the hallway she follows me to an interview room. She indicates she had a rough evening yesterday. She states that she was vomiting and having diarrhea she feels that she caught a gastrointestinal virus from somebody else. She "passed out" which appears to be a nonepileptic seizure episode. She did undergo a head CT which was negative for any acute process. She states that she feels much better today. She states after increasing the dose just yesterday the Pristiq is working better. She had a supportive phone call from her fianc. She has been attending groups. We discussed trying to taper down the benzodiazepines and she is agreeable. Mental status exam: The patient is an overweight female appearing her stated age. She is dressed in her own clothing eye contacts appropriate hygiene grooming are good. Speech is fluent spontaneous nonpressured. She reports that she is not ready to go home yet but is feeling more stable. She feels safe in the hospital. She is reporting no homicidal ideation intent or plan. She is reporting no symptoms of psychosis there is no observed evidence of psychosis she does not appear hypomanic or manic. Insight and judgment slowly improving. Cognitively she is grossly intact. She demonstrates no verbal or physical aggressiveness she demonstrates no involuntary repetitive movements. Plan: The patient will continue on her current psychotropic medication. We will monitor her for safety. Vital signs reviewed. The propranolol was reinitiated but we are holding if she becomes bradycardic. She is encouraged to continue participating in the milieu.
[2019-12-21] MEDS ORDERED: LORazepam 1 MG TAB PO STA (14:38)
[2019-12-21] MEDS: TOPIRAMATE 100 MG TAB PO SCH (20:57)
[2019-12-21] MEDS: ATORVASTATIN 10 MG TAB PO SCH (20:57)
[2019-12-21] MEDS: ARIPiprazole 5 MG TAB PO SCH (20:58)
[2019-12-21] MEDS: traZODone HCL 100 MG TAB PO SCH (20:58)
[2019-12-22] MEDS: ASPIRIN 81 MG PO SCH (08:16)
[2019-12-22] MEDS: DESVENLAFAXINE SUCCINATE 50 MG TAB.ER.24H PO SCH (08:16)
[2019-12-22] MEDS: PROPRANOLOL 20 MG TAB PO SCH (08:17)
[2019-12-22] MEDS: TOPIRAMATE 25 MG TAB PO SCH (08:17)
[2019-12-22] MEDS: LORazepam 1 MG TAB PO PRN (08:19)
[2019-12-22] MEDS: ACETAMINOPHEN TAB 325 MG TAB PO PRN (08:19)
[2019-12-22 08:22] VITALS: BP 106/64; PULSE 69; RESP 20
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
[2019-12-22 12:39] VITALS: TEMP 97.9
== END 2019-12-22 12:32 | disposition home or self-care (01) | DRG 881 ==
LOC: EC 11:13 → 3MHU 15:39
PROVIDERS: ADMIT Psychiatry & Neurology Psychiatry; ATTEND Psychiatry & Neurology Psychiatry
PROC: 3E0234Z Introduction of Serum, Toxoid and Vaccine into Muscle, Percutaneous Approach (ICD-10-PCS; principal; 2019-12-19)
DX: F32.9 Major depressive disorder, single episode, unspecified (principal); R45.851 Suicidal ideations; F41.0 Panic disorder [episodic paroxysmal anxiety]; F44.5 Conversion disorder with seizures or convulsions; Z23 Encounter for immunization; Z91.5 Personal history of self-harm; E78.5 Hyperlipidemia, unspecified; K21.9 Gastro-esophageal reflux disease without esophagitis; G47.9 Sleep disorder, unspecified; K29.70 Gastritis, unspecified, without bleeding; E66.3 Overweight; Z68.35 Body mass index [BMI] 35.0-35.9, adult; Z79.82 Long term (current) use of aspirin; Z79.899 Other long term (current) drug therapy; Z62.810 Personal history of physical and sexual abuse in childhood; Z91.411 Personal history of adult psychological abuse; Z86.73 Personal history of transient ischemic attack (TIA), and cerebral infarction without residual deficits; Z90.49 Acquired absence of other specified parts of digestive tract; Z98.891 History of uterine scar from previous surgery; Z98.51 Tubal ligation status; Z98.890 Other specified postprocedural states; Z91.013 Allergy to seafood; Z88.8 Allergy status to other drugs, medicaments and biological substances; Z91.018 Allergy to other foods; Z82.49 Family history of ischemic heart disease and other diseases of the circulatory system; Z82.69 Family history of other diseases of the musculoskeletal system and connective tissue; Z83.49 Family history of other endocrine, nutritional and metabolic diseases
CPT/HCPCS: 36415; 70450; 80053; 80061; 80306; 80329; 81001; 81025; 82075; 83036; 83520; 84443; 85025; 90732; 99285

== ENCOUNTER → 2021-03-25 | Outpatient (CLI) | payer MEDICARE, OTHER ==
--- NOTE | 2021-03-31 14:50 | PE ---
Nuclear medicine PET/CT HISTORY: Esophageal carcinoma, subsequent, C15.8 Patient received 9.9 mCi F-18 FDG intravenously delayed scanning was performed from the skull base to the mid thighs. A localization and attenuation correction CT scan was performed. Correlation to CT abdomen pelvis dated 03/28/2021 para chest and neck: Postop changes are noted at the gastroesophageal junction level. No suspicious uptake. No cervical, supraclavicular, mediastinal, ax illar, or hilar adenopathy. No pleural pericardial effusion. No evident lung mass. ABDOMEN: Patient is post cholecystectomy. Liver shows low attenuation possibly due to hepatic steatos is, liver is enlarged. There is no retroperitoneal adenopathy. Post gastric sleeve surgery change not ed. There is no ascites. Uptake along the bowel thought likely to be physiologic. Osseous structures show no lytic or blastic lesion, no suspicious uptake. IMPRESSION: Postop changes. No suspicious uptake.
== END | disposition home or self-care (01) ==
LOC: RADPETMAIN 17:50
PROVIDERS: ATTEND Family Medicine
DX: R16.0 Hepatomegaly, not elsewhere classified (principal); Z85.01 Personal history of malignant neoplasm of esophagus
CPT/HCPCS: 78815; A9552

== ENCOUNTER → 2021-03-28 | Outpatient (CLI) | payer MEDICARE, OTHER ==
[2021-03-28 14:43] LABS: African American GFR (CKD) >90 (>60 ml/min/1.73 sqM); Blood Urea Nitrogen 9 mg/dL (7-17); Non-African American GFR(CKD) >90 (>60 ml/min/1.73 sqM)
--- NOTE | 2021-03-28 17:19 | CT ---
EXAMINATION TYPE: CT abdomen pelvis w con DATE OF EXAM: 03/28/2021 COMPARISON: PET/CT 03/25/2021 HISTORY: 45-year-old female K76.9, unspecified liver disease, abnormal liver scan TECHNIQUE: Contiguous axial scanning of the abdomen and pelvis following administration of 100 ml Iso omar 300 IV contrast. Delayed images through the kidneys and coronal/sagittal reconstructions perform ed. CT DLP: 1564.6 mGycm Automated exposure control for dose reduction was used. FINDINGS: Heart normal size without pericardial effusion. Partially visualized loop recorder device. Lung bases clear without pleural effusion. There is a small hiatal hernia. Post surgical changes of sleeve gastrectomy. No focal liver lesion is seen. The patient's PET/CT from 03/25/2021 is reviewed. There is a possible t iny focus of increased uptake posterior right hepatic dome. No discrete CT finding in this area. The PET/CT finding may be artifactual. CT follow-up recommended to exclude the development of a liver les ion. Liver enlarged at 19.6 cm. Portal venous system is patent. No biliary ductal dilatation. Adrenal glands, kidneys, spleen with hilar splenule, and pancreas within normal limits. No dilated small bowel, free fluid, or free air. No mesenteric or retroperitoneal lymphadenopathy. Normal appendix. Mild to moderate stool burden. No pericolic inflammatory change. Bladder urine distended. Uterus anteverted. Follicular changes in the ovaries with a 2.9 cm dominant follicle or functional cyst in the right ovary. No abnormal fluid collection in the pelvis or pelvic lymphadenopathy. Mild degenerative change at the hips. No osseous destructive process. IMPRESSION: 1. MILD HEPATOMEGALY AT 19.6 CM. 2. NO FOCAL LIVER LESIONS SEEN. REVIEW OF THE PATIENT'S PET/CT SHOWS A POSSIBLE SUBCENTIMETER FOCUS O F UPTAKE IN THE POSTERIOR RIGHT HEPATIC DOME THAT HAS NO CT CORRELATE. THE FINDING MAY BE ARTIFACTUAL DUE TO SOME NORMAL VARIATION HETEROGENEOUS LIVER UPTAKE. CLOSE INTERVAL FOLLOW-UP CT OR PET/CT RECOM MENDED TO EXCLUDE A DEVELOPING METASTATIC LESION HERE. 3. SMALL HIATAL HERNIA WITH POSTSURGICAL CHANGES ALONG THE STOMACH.
== END | disposition home or self-care (01) ==
LOC: RADCTMAIN 13:59
PROVIDERS: ATTEND Family Medicine
DX: K44.9 Diaphragmatic hernia without obstruction or gangrene (principal)
CPT/HCPCS: 82565; 84520; 74177; 36415; Q9967

== ENCOUNTER 2021-06-27 15:47 | Inpatient (IN) | payer MEDICARE, OTHER ==
[2021-06-27] MEDS ORDERED: SODIUM CHLORIDE 0.9% 500 ML 500 ML IV STA (16:12)
[2021-06-27] MEDS ORDERED: ONDANSETRON 4 MG/2 ML VIAL IVP STA (16:12)
[2021-06-27 16:14] LABS: Glucose,Whole Blood 86 mg/dL (75-99)
[2021-06-27] MEDS ORDERED: levETIRAcetam IV 1,000 MG in SALINE 1 100ML.BAG IVPB STA (16:15)
--- NOTE | 2021-06-27 16:22 | ED ---
General Adult HPI - General Chief complaint: Neuro Symptoms/Deficit Stated complaint: rt sided weakness, slurred speech Time Seen by Provider: 06/27/21 15:55 Source: patient, RN notes reviewed, old records reviewed Mode of arrival: wheelchair Limitations: no limitations - History of Present Illness Initial comments: This is a 45-year-old female presents emergency department with right-sided weakness. Patient was last seen normal last night at 7 PM her to be weak at 2:30 morning when she woke up having a seizure. Patient has had multiple seizures which been having been increasing in frequency over the last few days. According to the family they just noticed that the patient was inadvertently not taking her Keppra. Patient has a history of stomach cancer which has metastasized to her liver and her small intestines. Patient denies any chest pain palpitations or difficulty breathing. Patient states she is nauseated. Patient denies any vomiting per patient denies any recent fever chills or cough. - Related Data Home Medications Medication Instructions Recorded Confirmed ALPRAZolam [Xanax] 0.5 mg PO TID PRN 06/27/21 06/27/21 ARIPiprazole [Abilify] 20 mg PO DAILY 06/27/21 06/27/21 Apixaban [Eliquis] 5 mg PO BID 06/27/21 06/27/21 EPINEPHrine (Auto Inject) [Epipen] 0.3 mg IM ONCE PRN 06/27/21 06/27/21 Gabapentin 800 mg PO TID 06/27/21 06/27/21 HYDROcodone/APAP 10-325MG [[place] 1 tab PO TID PRN 06/27/21 06/27/21 10-325] Metoprolol Succinate (ER) [Toprol 25 mg PO BID 06/27/21 06/27/21 Xl] Pantoprazole [Protonix] 40 mg PO BID 06/27/21 06/27/21 Scopolamine [Scopolamine 1 MG/72 1 patch TRANSDERM Q72H 06/27/21 06/27/21 HR patch] Sertraline HCl [Zoloft] 50 mg PO DAILY 06/27/21 06/27/21 busPIRone HCl [Buspar] 10 mg PO BID 06/27/21 06/27/21 levETIRAcetam [Keppra] 750 mg PO BID 06/27/21 06/27/21 traZODone HCL 100 mg PO HS PRN 06/27/21 06/27/21 traZODone HCL [Desyrel] 50 mg PO HS PRN 06/27/21 06/27/21 Previous Rx's Medication Instructions Recorded Desvenlafaxine [Pristiq ER] 100 mg PO DAILY #30 tab 12/22/19 Allergies Allergy/AdvReac Type Severity Reaction Status Date / Time duloxetine Allergy Rash/Hives Verified 06/27/21 18:55 gluten Allergy Swelling Verified 06/27/21 18:55 phenytoin [From Dilantin] Allergy Unknown Verified 06/27/21 18:55 shellfish derived [Shellfish] Allergy Anaphylaxis Verified 06/27/21 18:55 Review of Systems ROS Statement: Those systems with pertinent positive or pertinent negative responses have been documented in the HPI. ROS Other: All systems not noted in ROS Statement are negative. Past Medical History Past Medical History: Cancer, CVA/TIA Additional Past Medical History / Comment(s): pt. states they have had TIA in 2014, 2017, august 30 2019, pseudoseziures, bipolar 1, anxiety. liver, upper intestion, esophageal CA History of Any Multi-Drug Resistant Organisms: None Reported Past Surgical History: Section, Cholecystectomy, Tonsillectomy, Tubal Ligation Additional Past Surgical History / Comment(s): fundaplication, laproscopic scar tissue removal, partial stomach removal surgery R/T CA Past Anesthesia/Blood Transfusion Reactions: No Reported Reaction Past Psychological History: Anxiety, Bipolar, Depression Smoking Status: Never smoker Past Alcohol Use History: None Reported Past Drug Use History: None Reported - Past Family History Mother Family Medical History: Congestive Heart Failure (CHF) Sister(s) Additional Family Medical History / Comment(s): Lupus Brother(s) Additional Family Medical History / Comment(s): cystic fibrosis General Exam - General Exam Comments Initial Comments: GENERAL: Patient is well-developed and well-nourished. Patient is nontoxic and well- hydrated and is in mild distress. ENT: Neck is soft and supple. No significant lymphadenopathy is noted. Oropharynx is clear. Moist mucous membranes. Neck has full range of motion without eliciting any pain. EYES: The sclera were anicteric and conjunctiva were pink and moist. Extraocular movements were intact and pupils were equal round and reactive to light. Eyelids were unremarkable. PULMONARY: Unlabored respirations. Good breath sounds bilaterally. No audible rales rhonchi or wheezing was noted. CARDIOVASCULAR: There is a regular rate and rhythm without any murmurs gallops or rubs. ABDOMEN: Soft and nontender with normal bowel sounds SKIN: Skin is clear with no lesions or rashes and otherwise unremarkable. NEUROLOGIC: Patient is alert and oriented x3. Cranial nerves II through XII are grossly intact. Patient has significant right arm and right leg weakness patient's rn forensic is 1 out of 5 and plantar and dorsiflexion are decreased as well plantar flexion is 3 out of 5 in dorsiflexion is 1 out of 5. MUSCULOSKELETAL: Patient has significant right arm and right leg weakness LYMPHATICS: No significant lymphadenopathy is noted PSYCHIATRIC: Normal psychiatric evaluation. Limitations: no limitations Course Vital Signs 06/27/21 06/27/21 06/27/21 15:52 16:03 17:00 Temperature 98.4 F Pulse Rate 87 58 L Respiratory 18 16 Rate Blood Pressure 122/100 116/86 109/91 O2 Sat by Pulse 97 95 Oximetry 06/27/21 06/27/21 06/27/21 17:03 18:00 18:03 Temperature Pulse Rate 61 53 L 50 L Respiratory 16 16 14 Rate Blood Pressure 109/91 106/83 107/77 O2 Sat by Pulse 95 92 L 92 L Oximetry Medical Decision Making - Medical Decision Making Patient's EKG shows normal sinus rhythm at 85 bpm ME interval 260 QRS is 80 QT interval 370 QTC is 449. Patient's EKG shows no ST segment patient or depression. Patient does have Q waves in inferior leads. I spoke with Dr. Macedo as soon as the patient came in this was called a code stroke because it was under [address] Macedo agrees we will do a CTA on the patient's kidney function comes back and he will review the scan at that time. CT shows no acute abnormality. CTA shows no acute abnormality. After both CAT scans were done I spoke with Dr. Macedo and he agrees nothing at this point from an intervention point needs to be done and we will admit the patient and consult cardiology. I spoke with Dr. Dr. Carney he agreed to admit the patient admitted the patient I wrote admitting orders. Patient got a gram of Keppra and still had one more seizures given one of Ativan and she stopped having seizures. At that point time it appeared that patient was able to move the leg because she crossed her right leg over her left which was unable to do earlier. I spoke with Dr. Coto he agreed to admit the patient admitted the patient wrote admitting orders. - Lab Data Result diagrams: 06/27/21 16:19 06/27/21 16:19 Lab Results 06/27/21 06/27/21 06/27/21 Range/Units 16:12 16:19 16:19 WBC 5.8 (3.8-10.6) k/uL RBC 4.82 (3.80-5.40) m/uL Hgb 14.8 (11.4-16.0) gm/dL Hct 45.1 (34.0-46.0) % MCV 93.7 (80.0-100.0) fL MCH 30.8 (25.0-35.0) pg MCHC 32.9 (31.0-37.0) g/dL RDW 12.6 (11.5-15.5) % Plt Count 228 (150-450) k/uL MPV 8.6 Neutrophils % 46 % Lymphocytes % 44 % Monocytes % 4 % Eosinophils % 3 % Basophils % 1 % Neutrophils # 2.7 (1.3-7.7) k/uL Lymphocytes # 2.6 (1.0-4.8) k/uL Monocytes # 0.2 (0-1.0) k/uL Eosinophils # 0.2 (0-0.7) k/uL Basophils # 0.1 (0-0.2) k/uL PT 10.6 (9.0-12.0) sec INR 1.0 (<1.2) APTT 25.7 (22.0-30.0) sec Sodium (137-145) mmol/L Potassium (3.5-5.1) mmol/L Chloride (98-107) mmol/L Carbon Dioxide (22-30) mmol/L Anion Gap mmol/L BUN (7-17) mg/dL Creatinine (0.52-1.04) mg/dL Est GFR (CKD-EPI)AfAm (>60 ml/min/1.73 sqM) Est GFR (CKD-EPI)NonAf (>60 ml/min/1.73 sqM) Glucose (74-99) mg/dL POC Glucose (mg/dL) 86 (75-99) mg/dL POC Glu Drill Sergeant ID Jody Bernabe Calcium (8.4-10.2) mg/dL Total Bilirubin (0.2-1.3) mg/dL AST (14-36) U/L ALT (4-34) U/L Alkaline Phosphatase (38-126) U/L Troponin I (0.000-0.034) ng/mL Total Protein (6.3-8.2) g/dL Albumin (3.5-5.0) g/dL Coronavirus (PCR) (Not Detectd) 06/27/21 06/27/21 06/27/21 Range/Units 16:19 16:19 16:22 WBC (3.8-10.6) k/uL RBC (3.80-5.40) m/uL Hgb (11.4-16.0) gm/dL Hct (34.0-46.0) % MCV (80.0-100.0) fL MCH (25.0-35.0) pg MCHC (31.0-37.0) g/dL RDW (11.5-15.5) % Plt Count (150-450) k/uL MPV Neutrophils % % Lymphocytes % % Monocytes % % Eosinophils % % Basophils % % Neutrophils # (1.3-7.7) k/uL Lymphocytes # (1.0-4.8) k/uL Monocytes # (0-1.0) k/uL Eosinophils # (0-0.7) k/uL Basophils # (0-0.2) k/uL PT (9.0-12.0) sec INR (<1.2) APTT (22.0-30.0) sec Sodium 136 L (137-145) mmol/L Potassium 3.9 (3.5-5.1) mmol/L Chloride 108 H (98-107) mmol/L Carbon Dioxide 17 L (22-30) mmol/L Anion Gap 11 mmol/L BUN 14 (7-17) mg/dL Creatinine 0.71 (0.52-1.04) mg/dL Est GFR (CKD-EPI)AfAm >90 (>60 ml/min/1.73 sqM) Est GFR (CKD-EPI)NonAf >90 (>60 ml/min/1.73 sqM) Glucose 99 (74-99) mg/dL POC Glucose (mg/dL) (75-99) mg/dL POC Glu Drill Sergeant ID Calcium 9.6 (8.4-10.2) mg/dL Total Bilirubin 0.4 (0.2-1.3) mg/dL AST 25 (14-36) U/L ALT 16 (4-34) U/L Alkaline Phosphatase 76 (38-126) U/L Troponin I <0.012 (0.000-0.034) ng/mL Total Protein 7.8 (6.3-8.2) g/dL Albumin 4.4 (3.5-5.0) g/dL Coronavirus (PCR) Not Detected (Not Detectd) Disposition Clinical Impression: Cerebrovascular accident (CVA), Status epilepticus Disposition: ADMITTED IP TO THIS [facility] Instructions (If sedation given, give patient instructions): Seizure/Epilepsy Discharge Instructions & Follow-Up Referrals: Adalberto Carney MD [Primary Care Provider] - 1-2 days Time of Disposition: 19:41
[2021-06-27 16:31] LABS: Basophils # (A) 0.1 k/uL (0-0.2); Basophils % (A) 1 %; Eosinophils # (A) 0.2 k/uL (0-0.7); Eosinophils % (A) 3 %; HCT 45.1 % (34.0-46.0); HGB 14.8 gm/dL (11.4-16.0); Lymphocytes # (A) 2.6 k/uL (1.0-4.8); Lymphocytes % (A) 44 %; MCH 30.8 pg (25.0-35.0); MCHC 32.9 g/dL (31.0-37.0); MCV 93.7 fL (80.0-100.0); Mean Platelet Volume 8.6; Monocytes # (A) 0.2 k/uL (0-1.0); Monocytes % (A) 4 %; Neutrophils # (A) 2.7 k/uL (1.3-7.7); Neutrophils % (A) 46 %; Platelet Count 228 k/uL (150-450); RBC 4.82 m/uL (3.80-5.40); RDW 12.6 % (11.5-15.5); WBC 5.8 k/uL (3.8-10.6)
--- NOTE | 2021-06-27 16:31 | CT ---
EXAMINATION TYPE: CT brain wo con DATE OF EXAM: 06/27/2021 COMPARISON: CT brain December 20, 2019 HISTORY: Slurred speech, right sided weakness. Acute onset neuro deficit. CT DLP: 1090.4 mGycm. Automated Exposure Control for Dose Reduction was Utilized. TECHNIQUE: CT scan of the head is performed without contrast. FINDINGS: There is no acute intracranial hemorrhage, mass effect, or midline shift identified. The ventricles and sulci are within normal limits in size. Macedo-white matter differentiation is maintai kristen. Air-fluid level in the left maxillary sinus with mild mucosal thickening. IMPRESSION: No acute intracranial hemorrhage or midline shift is seen. Possible acute left maxillar y sinus disease. Results of no acute intracranial hemorrhage called to emergency room at time of dictation.
[2021-06-27 16:39] LABS: ALT 16 U/L (4-34); AST 25 U/L (14-36); African American GFR (CKD) >90 (>60 ml/min/1.73 sqM); Albumin 4.4 g/dL (3.5-5.0); Alkaline Phosphatase 76 U/L (38-126); Anion Gap 11 mmol/L; Blood Urea Nitrogen 14 mg/dL (7-17); Calcium 9.6 mg/dL (8.4-10.2); Carbon Dioxide 17 mmol/L (22-30); Chloride 108 mmol/L (98-107); Glucose 99 mg/dL (74-99); Non-African American GFR(CKD) >90 (>60 ml/min/1.73 sqM); Potassium 3.9 mmol/L (3.5-5.1); Sodium 136 mmol/L (137-145); Total Bilirubin 0.4 mg/dL (0.2-1.3); Total Protein 7.8 g/dL (6.3-8.2)
[2021-06-27] MEDS ORDERED: LORazepam 2 MG/ML INJ IV STA (17:03)
[2021-06-27 17:07] LABS: Partial Thromboplastin Time 25.7 sec (22.0-30.0); Prothrombin Time 10.6 sec (9.0-12.0)
--- NOTE | 2021-06-27 17:10 | XR ---
EXAMINATION TYPE: XR chest 1V portable DATE OF EXAM: 06/27/2021 COMPARISON: NONE HISTORY: Weakness TECHNIQUE: Single view FINDINGS: Heart is normal. Lungs are clear of infiltrate. There are chest leads. Costophrenic angles are clear. Bony thorax is intact. IMPRESSION: Normal chest
--- NOTE | 2021-06-27 18:14 | CT ---
EXAMINATION TYPE: CT angio head neck DATE OF EXAM: 06/27/2021 COMPARISON: 08/29/2019 HISTORY: Right sided weakness with history of CVA CT DLP: 598.1 mGycm Automated exposure control for dose reduction was used. CONTRAST: Performed with IV Contrast, patient injected with 65 mL of Isovue 370. Images obtained from the aortic arch to the vertex of the brain with IV contrast. There are 3-D post processed images. Thoracic aorta is intact. There is normal branching pattern of the great vessels on the aortic arch. There is bilateral arterial flow in the subclavian arteries. There is arterial flow in the common int ernal and external carotid arteries bilaterally. There is bilateral arterial flow in the vertebral ar teries. There is arterial flow in the vertebrobasilar artery system. There is no evidence of carotid or vertebral artery aneurysm or dissection. There is wide patency of the carotid artery bifurcations. There is no evidence of carotid or vertebral artery aneurysm or dissection. There is arterial flow in the anterior middle and posterior cerebral arteries. There is normal enhanc ement of the venous sinuses. There is no mass effect. I see no evidence of intracranial aneurysm or n eovascularity. There is mucosal thickening in the maxillary sinuses. There is no evidence of intracranial arterial stenosis. IMPRESSION: Negative CT angiogram the neck. Negative CT angiogram of the brain. No adverse change compared to old exam.
[2021-06-27] MEDS ORDERED: traZODone HCL 50 MG TAB PO PRN (19:44)
[2021-06-27] MEDS ORDERED: traZODone HCL 100 MG TAB PO PRN (19:44)
[2021-06-27] MEDS: PANTOPRAZOLE 40 MG TABLET PO SCH (23:22)
[2021-06-27] MEDS: GABAPENTIN 400 MG CAP PO SCH (23:22)
[2021-06-27] MEDS: APIXABAN 5 MG TAB PO SCH (23:23)
[2021-06-27] MEDS: HYDROcodone/APAP 10-325MG 1 EACH TAB PO PRN (23:23)
[2021-06-27] MEDS: SODIUM CHLORIDE 0.9% 1,000 ML IV SCH (23:29)
[2021-06-28] MEDS: SODIUM CHLORIDE 0.9% 1,000 ML IV SCH ×3 (07:54→21:34)
[2021-06-28] MEDS: APIXABAN 5 MG TAB PO SCH ×2 (08:12→21:33)
[2021-06-28] MEDS: PANTOPRAZOLE 40 MG TABLET PO SCH ×2 (08:12→08:13)
[2021-06-28] MEDS: HYDROcodone/APAP 10-325MG 1 EACH TAB PO PRN ×2 (08:13→16:41)
[2021-06-28] MEDS: ALPRAZolam 0.5 MG TAB PO PRN ×2 (08:14→16:47)
[2021-06-28] MEDS: GABAPENTIN 400 MG CAP PO SCH ×3 (08:15→21:34)
[2021-06-28] MEDS ORDERED: METOPROLOL SUCCINATE (ER) 25 MG TAB.ER.24H PO SCH (09:00)
[2021-06-28] MEDS ORDERED: DESVENLAFAXINE SUCCINATE 50 MG TAB.ER.24H PO SCH (09:00)
[2021-06-28] MEDS ORDERED: busPIRone HCl 10 MG TAB PO SCH (09:00)
[2021-06-28 09:54] LABS: Chol/HDL Ratio 6.71 Ratio; LDL Cholesterol,Calculated 164.8 mg/dL (0.0-131.0)
--- NOTE | 2021-06-28 10:27 | P.CNNES ---
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 According to the patient she has history of seizures or nonepileptic nature as well as epileptic and she is on multiple medication but has been noncompliant for last 1 month since she's been feeling confused since she is on chemotherapy. She said that the for her seizures she has has staring episodes and feels the funny in her head then she loses consciousness and was told that the she has jerk in of entire extremities and sometimes she is have bladder incontinence as well as tongue bite and some post ictal confusion. She said her seizure would last for about about a minute. She said the for the last month 1 month. They've become more frequent. She would have about 2 episodes a day. Also associate with that she noticed the she is having right-sided weakness and difficulty getting her words out had weakness around 2:30 in the morning on 06/27/2021 and last normal was 7 PM on night prior to presenting to hospital. 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 Of note patient stated that she had the multiple EEGs in the past as well as amble to her EEG and the she was told that she had the pseudoseizures as well as some of the seizures were epileptic in nature. She was also told by her neurologist she has conversion. She is on Topamax 50 mg every morning and 100 mg daily at bedtime, Keppra 750 mg 1 tablet twice a day, Vimpat 50 mg 1 tablet twice a day and she is on gabapentin 800 mg of 1 tablet 3 times a day initially was used for neuropathy but then the patient was told that it's the also being used to manage her seizures. During her stomach and esophageal cancer metastasis to liver as well as intest ine she is on her second chemotherapy and had her last chemotherapy about 4-5 days ago. Denies of alcohol use or tobacco use. He is also on Eliquis 5 mg 1 tablet twice a day,Xanax, Abilify, Zoloft, tr azodone, BuSpar, Some of the workup in the hospital consisted of: Initial vital signs is blood pressure of 122/100, heart rate of 87, respiratory of 18, temperature of 98.4 Fahrenheit oral and pulse ox of 97% at room air. White blood cells 5.8 thousand. The rest of the CBC with differential is unr emarkable. Sodium is 136, creatinine is 0.71, serum glucose is 99, calcium is 9.6. AST is 25, ALT of 16. Flores virus PCR was not detected. CT of the head is reported as no acute intracranial hemorrhage or midline shift is seen. Possible acute left maxillary sinus disease. Result of no acute intra cranial hemorrhage called to the emergency room at time of dictation CT angiography of the head and neck is reported as negative for both. Stroke code was activated and the ED spoke with the stroke team (Dr. Ayers) and the no IV TPA since the patient is outside the window. No intervention. Then later the patient was moving her right leg which there was improvement. She was given Ativan in the ED as well as 1 g of Keppra which per the ED team to stop her seizure-like activity. Per the patient's nurse and her exam is inconsistent at times she is able to move her right side and there is times that she is not moving her right side that. Review of Systems Review of system: The 12 point system was reviewed and apparent positive and negative per HPI. Past Medical History Past Medical History: Cancer, CVA/TIA Additional Past Medical History / Comment(s): pt. states they have had TIA in 2014, 2017, august 30 2019, pseudoseziures, bipolar 1, anxiety. liver, upper intestion, esophageal CA History of Any Multi-Drug Resistant Organisms: None Reported Past Surgical History: Section, Cholecystectomy, Tonsillectomy, Tubal Ligation Additional Past Surgical History / Comment(s): fundaplication, laproscopic scar tissue removal, partial stomach removal surgery R/T CA Past Anesthesia/Blood Transfusion Reactions: No Reported Reaction Past Psychological History: Anxiety, Bipolar, Depression Smoking Status: Never smoker Past Alcohol Use History: None Reported Past Drug Use History: None Reported - Past Family History Mother Family Medical History: Congestive Heart Failure (CHF) Sister(s) Additional Family Medical History / Comment(s): Lupus Brother(s) Additional Family Medical History / Comment(s): cystic fibrosis Medications and Allergies Home Medications Medication Instructions Recorded Confirmed Type Desvenlafaxine [Pristiq ER] 100 mg PO DAILY #30 tab 12/22/19 06/27/21 Rx ALPRAZolam [Xanax] 0.5 mg PO TID PRN 06/27/21 06/27/21 History ARIPiprazole [Abilify] 20 mg PO DAILY 06/27/21 06/27/21 History Apixaban [Eliquis] 5 mg PO BID 06/27/21 06/27/21 History EPINEPHrine (Auto Inject) [Epipen] 0.3 mg IM ONCE PRN 06/27/21 06/27/21 History Gabapentin 800 mg PO TID 06/27/21 06/27/21 History HYDROcodone/APAP 10-325MG [Sultan 1 tab PO TID PRN 06/27/21 06/27/21 History 10-325] Metoprolol Succinate (ER) [Toprol 25 mg PO BID 06/27/21 06/27/21 History Xl] Pantoprazole [Protonix] 40 mg PO BID 06/27/21 06/27/21 History Scopolamine [Scopolamine 1 MG/72 1 patch TRANSDERM Q72H 06/27/21 06/27/21 History HR patch] Sertraline HCl [Zoloft] 50 mg PO DAILY 06/27/21 06/27/21 History busPIRone HCl [Buspar] 10 mg PO BID 06/27/21 06/27/21 History levETIRAcetam [Keppra] 750 mg PO BID 06/27/21 06/27/21 History traZODone HCL 100 mg PO HS PRN 06/27/21 06/27/21 History traZODone HCL [Desyrel] 50 mg PO HS PRN 06/27/21 06/27/21 History Allergies Allergy/AdvReac Type Severity Reaction Status Date / Time duloxetine Allergy Rash/Hives Verified 06/27/21 18:55 gluten Allergy Swelling Verified 06/27/21 18:55 phenytoin [From Dilantin] Allergy Unknown Verified 06/27/21 18:55 shellfish derived [Shellfish] Allergy Anaphylaxis Verified 06/27/21 18:55 Physical Examination - Vital Signs Vital Signs: Vital Signs Temp Pulse Pulse Resp BP BP Pulse Ox 06/28/21 04:54 39 L 17 112/64 95 06/28/21 02:36 98.7 F 46 L 18 97/57 96 06/28/21 02:27 40 L 17 99/60 95 06/27/21 22:12 53 L 17 103/72 95 06/27/21 18:03 50 L 14 107/77 92 L 06/27/21 18:00 53 L 16 106/83 92 L 06/27/21 17:03 61 16 109/91 95 06/27/21 17:00 109/91 06/27/21 16:03 58 L 16 116/86 95 06/27/21 15:52 98.4 F 87 18 122/100 97 Intake and Output 06/27/21 06/28/21 06/28/21 22:59 06:59 14:59 Other: Weight 85.729 kg 85.729 kg GENERAL: The patient is lying in bed and is not in acute distress. CHEST: The heart rate is regular rate rhythm. No murmurs to auscultation. No carotid bruit bilaterally. LUNG: Clear to auscultation bilaterally no wheezing noted throughout. Not labored breathing. ABDOMEN/GI: Bowel sounds present in all 4 quadrants. No tenderness to palpation throughout. NEUROLOGICAL: Higher mental function: The patient is awake, alert, oriented to self, place and time. Patient is following commands. No aphasia and no neglect. Cranial nerves: The pupils are round, equal and reactive to light and accommodation. Visual rojas are full to confrontation throughout. Extraocular movement is intact no nystagmus is noted. Facial sensation is normal to touch throughout. The facial strength is normal throughout. Hearing is normal bilaterally to hand rub. Tongue is midline and moved [id number] without any difficulty. No dysarthria is noted. Shoulder shrug is normal bilaterally. Motor: Gait is deferred. The strength is inconsistent over the right side. Before I started examining the patient she was moving the right leg and upon performing exam she was not moving her right side. Upon asking her to tacking stitch remover her fingers of right hand she could not then within a minute she was squeezing my finger. Upon picking up her right upper extremity and placing over the head and letting go, her arm went to the side which seems inconsistent with someone that have total weakness. Otherwise left side 5 over 5 throughout. Normal bulk. Decrease tone over the right side. Cerebellum: Normal finger to nose over the left and unable to assess the right. Sensation: Sensation is decreased to touch over the right upper extremity. Otherwise normal. Reflexes (right/left): 2+ throughout. Plantars are mute bilaterally. Results - Laboratory Findings CBC and BMP: 06/27/21 16:19 06/27/21 16:19 Abnormal Lab Findings: Abnormal Labs 06/27/21 16:19 Sodium 136 L Chloride 108 H Carbon Dioxide 17 L Assessment and Plan Assessment: Acute right sided weakness with numbness. I feel exam is inconsistent: There seems to be functional component. Cannot rule out Giovanny's Paralysis. Rule out stroke. No IV tpa since outside window. Break-thru seizure-like activity and is noncompliant with medication (her labs are normal and for patient to be in status you would expect labs to be reactive) History of reported seizures (both epileptic and non-epileptic in nature according to patient) and is on multiple anti-epileptic drugs History of head injury with concussion on 08/18/2019, History of esophageal and stomach cancer metastasized to the liver as well as small intestines on chemotherapy Conversion (per patient her neurologist diagnosed with this) BiPolar Anxiety Plan: The patient was given Ativan 1 mg and at a loading dose of Keppra 1 g. She is continued on her medication of Topamax 50 mg every morning and 100 mg daily at bedtime, Keppra 750 mg 1 tablet twice a day, Vimpat 50 mg 1 tablet twice a day and she is on gabapentin 800 mg of 1 tablet 3 times. Per the patient she is not having any side-effects from medication. I feel patient is on too medications and consider stopping Keppra as outpatient especially with a lot of psych problems and consider switching to Lamictal. She was notified to follow-up further medication adjustment with her Neurologist. I ordered a routine EEG. I also ordered MRI of the brain with and without and 2D echo. She is on Eliquis 5 mg a tablet twice a day and I'm not sure for what reason. Place the patient on Lipitor 10 mg daily at bedtime. Lipid panel is ordered by the ED team and is pending Ordered TSH level and urine drug screen. Continue neuro checks Placed on cardiac monitoring PT OT and CRIME INVESTIGATOR SPECIAL AGENT are consulted Consulted psychiatry team for her significant psych history, medication non- compliance and on multiple medications. I asked the inpatient pharmacist to check with her outpatient medication pharmacy. We'll defer the rest of the medical management to primary team. Upon discharge the patient needs to follow-up with her neurologist (Dr. Smith over [facility] according to patient) within 1-2 weeks as outpatient. The plan is discussed with the nurse. Thank you for the consultation. Chandana Miner MD Neuro-Hospitalist. Time with Patient: Greater than 30
[2021-06-28] MEDS: LACOSAMIDE 50 MG TABLET PO SCH ×2 (11:41→21:33)
--- NOTE | 2021-06-28 11:59 | P.CN ---
Psychiatric Consult - . Consult date: 06/28/21 Consult:: 06/28/21 11:26 IDENTIFYING DATA: This patient is a 45-year-old female who currently lives with her fianc and 1 son in a house. She has 3 kids total. REASON FOR REFERRAL: Psychiatry was consulted for significant psychiatric h istory and medication noncompliance HISTORY OF PRESENT ILLNESS: The patient presented to the hospital yesterday with complaints of right-sided weakness and claims that she apparently woke up having a seizure and was also noted to not be taking her Keppra. She has a history of stomach cancer with metastasis to her liver and spontaneous depression. Patient had a computed tomography scan of her brain done which did not show any acute changes. Patient was seen today by selling underwriter at the bedside and was agreeable to speak to him and be interviewed. She was fairly calm and cooperative however was tearful when speaking about her cancer and her children. She claims that she was having seizures at home and claims that "sometimes they're pseudo-and sometimes they're epileptic". She claims that she has been forgetting to take her Keppra for about a month now and states that she keeps it in a separate bag with her other medications. She claims that she has been taking her other psychiatric medications and recently had her dose of Zoloft increased to 200 mg by her PCP. She states that she is also taking Pristiq as well. She claims that she went to her PCPs office after she was having slurred speech who told her to come into the ER. Patient claims that her right side of her body has been mildly improving and she can have more sensation now in her right foot. She states that her mood is still depressed and mainly spoke about the cancer and chemotherapy treatment. She states that she has about "a 40% chance to live". She is denying any suicidal thoughts and wants to live for her children. She claims that her sleep has been poor approximately 3 hours a night. She states that she usually takes 150 mg of trazodone. She states that her appetite as been poor for several weeks now. At this time patient denies any suicidal or homical ideations, intent or plan. Patient denies any auditory, visual hallucinations and denies any paranoia or delusions. Patients admits to using no recreational drugs or cigarettes PAST PSYCHIATRIC HISTORY: Patient has a a history of depression and anxiety. Patient was previously on Pristiq, Xanax, Abilify, BuSpar, trazodone and Zoloft. Patient was last psychiatrically hospitalized in December 2019. Patient apparently follows up at [facility] with her therapist and also sees her primary care physician for her medications. She claims in 2014 she overdosed on pills as a suicide attempt. Past Medical History: Cancer, CVA/TIA Additional Past Medical History / Comment(s): pt. states they have had TIA in 2014, 2017, august 30 2019, pseudoseziures, bipolar 1, anxiety. liver, upper intestion, esophageal CA ALLERGIES: as per EMR. CHEMICAL DEPENDENCY HISTORY: as per HPI. FAMILY PSYCHIATRIC/SUBSTANCE USE HISTORY: She claims that her father and sister both have bipolar disorder SOCIAL HISTORY: Patient was born and raised in [place] [facility]. She states that she also was raised in [place]. She claims that she completed up to the ninth grade of school. She states that she worked at a [employer] however is now unemployed. She states that she has a fianc and has 3 kids and lives with her son. They live in a house. She denies any legal history. MENTAL STATUS EXAM: General Appearance: Patient is wearing a bandana, appears to be stated age is alert, directable, and cooperative. Patient appears to have fair hygiene and grooming wearing hospital gown with fair eye contact. Behavior: Patient is calmly lying in bed without any agitated behavior. cooperative Speech: Patient's speech is fluent and nonpressured. Mood/Affect: Patient reports their mood is "depressed and anxious", affect is congruent and tearful when speaking of her cancer Suicidality/Homicidality: Patient denies having any suicidal or homicidal ideation intent or plan. Perceptions: Patient denies any visual hallucinations and denies any auditory hallucinations Though content/process: There is no evidence of any delusional thought content and thought process is linear and goal-directed. future oriented Memory and concentration: AOX3, grossly intact for the purposes of this session. Can spell "WORLD" backwards Judgment and insight: fair IMPRESSIONS: Depressive disorder unspecified, rule out bipolar depression vs. major depressive disorder Generalized anxiety disorder non compliance with medication regimen hx of psychogenic seizures PLAN: -At this time patient DOES NOT meet criteria for inpatient psychiatric admission. -Delirium precautions recommended with patient including - avoiding use of narcotics and ZINC MINER sedatives, limit anticholinergic medications when possible, frequent re-orientation, minimize use of restraints, open window shades during the day and close them at night -Would recommend the following medication changes/additions: Increase BuSpar to 15 mg twice a day for anxiety. Continue Xanax when necessary for anxiety. Increase trazodone to 200 mg daily at bedtime for insomnia/mood. Restarted patient back on her home dose of Zoloft 200 mg daily for mood/anxiety. Discontinue Pristiq as patient should not be on two serotonergic antidepressants at the same time. continue with abilify 20 mg daily for mood adjunct. Added [place] 150 mg bid for mood adjunct. -patient claims that she forgot to take her keppra for over a month however states that she spoke with her fiance who will now be helping her to take her pills. -Patient follows up with her therapist at [facility] and PCP dr. Carney -Communicated plan to patient's nurse -Will continue to follow along -Please contact with any questions. 06/28/21 11:48
[2021-06-28] MEDS: LITHIUM CARBONATE 150 MG CAP PO SCH ×2 (13:09→21:33)
[2021-06-28] MEDS: busPIRone HCl 5 MG TAB PO SCH ×2 (13:10→21:33)
[2021-06-28] MEDS: SERTRALINE 100 MG TAB PO SCH (16:45)
[2021-06-28] MEDS: TOPIRAMATE 25 MG TAB PO SCH (16:45)
--- NOTE | 2021-06-28 18:41 | EEG ---
ELECTROENCEPHALOGRAM REPORT DATE OF SERVICE: 06/28/2021 CLINICAL HISTORY: This is a 45-year-old woman with a history of seizure that is epileptic and nonepileptic in nature who presented to the hospital with repeated seizure-like activity and patient is noncompliant with her medication. EEG is obtained to evaluate for seizure epileptiform activity. RELEVANT MEDICATION: Keppra, Ativan 1 mg and gabapentin. EEG TYPE: A routine 21-channel EEG is performed with video using the 10/20 electrode placement system. DESCRIPTION: Wakefulness and drowsiness are obtained. During awake state, the posterior- dominant rhythm consists of low to moderate voltage of 7.5 hertz that is well modulated, well sustained. There is no physiological stage II sleep architecture. There is no focal slowing seen. Interictal and ictal is none. ACTIVATION PROCEDURE: Photic stimulation is performed and during 6-7 hertz photic stimulation, patient had diffuse rhythmic theta activity that lasted for last for less than one minute and clinically during this episode, the patient had head jerking. This episode does not seem epileptic in nature. The photic stimulation was stopped then restarted and there was no further head shaking or any epileptic or seizure-like activity noted on the EEG. There is no photic drive during the photic stimulation. Hyperventilation is not performed. CLINICAL INTERPRETATION: This is an abnormal routine EEG. The background slowing is suggestive of mild encephalopathy. There are no focal slowing, epileptiform discharge or seizure on the EEG. The patient had an episode of head jerking briefly between 6 and 8 hertz photic stimulation and that did not seem to be epileptic in nature or did not seem to correlate for seizure. There is no seizure-like activity. There are no seizures or epileptiform discharges captured during this study. Clinical correlation is recommended. MMODL / IJN: [id number] / PRICILLA
[2021-06-28] MEDS ORDERED: TOPIRAMATE 100 MG TAB PO SCH (21:00)
[2021-06-28] MEDS ORDERED: traZODone HCL 100 MG TAB PO SCH (21:00)
--- NOTE | 2021-06-28 23:32 | P.HPIM ---
History of Present Illness H&P Date: 06/28/21 Chief Complaint: seizure Marielena Perkins is a 45 yo F with PMH of gastric cancer currently undergoing chemotherapy, seizure disorder, pseudoseizure and conversion disorder, hx CVA, bipolar disorder who presented to the ED with status epilepticus. She states that she has been very overwhelmed with her chemotherapy has been feeling more down on herself. Over the past few days she has been having more seizures involving shaking as well as staring into space. Yesterday she developed R sided numbness and weakness so saw her PCP and was advised to come to the hospital. She states that last week she was told she had a 40% chance of survival and since then has been experiencing these episodes. She is on multiple antiepileptics including vimpat, keppra, gabapentin. She states she forgot to take her keppra for the past few weeks. On presentation to the ED she was noted to be in status epilepticus which was treated with loading dose of keppra and IV ativan Review of Systems All systems: negative Constitutional: Reports malaise, Denies chills, Denies fever Eyes: denies blurred vision, denies pain Ears, nose, mouth and throat: Denies headache, Denies sore throat Cardiovascular: Denies chest pain, Denies shortness of breath Respiratory: Denies cough Gastrointestinal: Denies abdominal pain, Denies diarrhea, Denies nausea, Denies vomiting Genitourinary: Denies dysuria, Denies hematuria Musculoskeletal: Denies myalgias Integumentary: Denies pruritus, Denies rash Neurological: Reports numbness, Reports seizures, Reports sensory deficit, Reports weakness Psychiatric: Reports anhedonia, Reports depression, Denies anxiety Endocrine: Denies fatigue, Denies weight change Past Medical History Past Medical History: Cancer, CVA/TIA Additional Past Medical History / Comment(s): pt. states they have had TIA in 2014, 2017, august 30 2019, pseudoseziures, bipolar 1, anxiety. liver, upper intestion, esophageal CA History of Any Multi-Drug Resistant Organisms: None Reported Past Surgical History: Section, Cholecystectomy, Tonsillectomy, Tubal Ligation Additional Past Surgical History / Comment(s): fundaplication, laproscopic scar tissue removal, partial stomach removal surgery R/T CA Past Anesthesia/Blood Transfusion Reactions: No Reported Reaction Past Psychological History: Anxiety, Bipolar, Depression Smoking Status: Never smoker Past Alcohol Use History: None Reported Past Drug Use History: None Reported - Past Family History Mother Family Medical History: Congestive Heart Failure (CHF) Sister(s) Additional Family Medical History / Comment(s): Lupus Brother(s) Additional Family Medical History / Comment(s): cystic fibrosis Medications and Allergies Home Medications Medication Instructions Recorded Confirmed Type Desvenlafaxine [Pristiq ER] 100 mg PO DAILY #30 tab 12/22/19 06/28/21 Rx ALPRAZolam [Xanax] 0.5 mg PO TID PRN 06/27/21 06/28/21 History ARIPiprazole [Abilify] 20 mg PO HS 06/27/21 06/28/21 History Apixaban [Eliquis] 5 mg PO BID 06/27/21 06/28/21 History EPINEPHrine (Auto Inject) [Epipen] 0.3 mg IM ONCE PRN 06/27/21 06/27/21 History Gabapentin 800 mg PO TID 06/27/21 06/28/21 History HYDROcodone/APAP 10-325MG [[place] 1 tab PO Q4H PRN 06/27/21 06/28/21 History 10-325] Metoprolol Succinate (ER) [Toprol 25 mg PO BID 06/27/21 06/28/21 History Xl] Pantoprazole [Protonix] 40 mg PO BID 06/27/21 06/28/21 History Scopolamine [Scopolamine 1 MG/72 1 patch TRANSDERM Q72H 06/27/21 06/27/21 History HR patch] busPIRone HCl [Buspar] 10 mg PO BID 06/27/21 06/28/21 History levETIRAcetam [Keppra] 750 mg PO BID 06/27/21 06/28/21 History traZODone HCL 100 mg PO HS 06/27/21 06/27/21 History traZODone HCL [Desyrel] 50 mg PO HS 06/27/21 06/27/21 History Sertraline [Zoloft] 200 mg PO HS 06/28/21 06/28/21 History Topiramate [Topamax] 50 mg PO QAM 06/28/21 06/28/21 History Topiramate [Topamax] 100 mg PO HS 06/28/21 06/28/21 History Allergies Allergy/AdvReac Type Severity Reaction Status Date / Time duloxetine Allergy Rash/Hives Verified 06/27/21 18:55 gluten Allergy Swelling Verified 06/27/21 18:55 phenytoin [From Dilantin] Allergy Unknown Verified 06/27/21 18:55 shellfish derived [Shellfish] Allergy Anaphylaxis Verified 06/27/21 18:55 Physical Exam Vitals: Vital Signs Temp Pulse Pulse Resp BP BP Pulse Ox 06/28/21 20:00 97.9 F 52 L 16 94/65 96 06/28/21 14:34 40 L 16 110/72 99 06/28/21 11:49 49 L 16 91/69 06/28/21 08:00 49 L 16 98/63 06/28/21 04:54 39 L 17 112/64 95 06/28/21 02:36 98.7 F 46 L 18 97/57 96 06/28/21 02:27 40 L 17 99/60 95 Intake and Output 06/28/21 06/28/21 06/29/21 14:59 22:59 06:59 Intake Total 190 Output Total 400 Balance -210 Intake: IV 10 Invasive Line 1 10 Oral 180 Output: Urine 400 Other: # Voids 1 General: well nourished, well developed, NAD. Vitals reviewed Eyes: PERRL, EOMI, conjunctiva normal HENT: normocephalic, mucus membranes moist Neck: supple, no JVD Lungs: normal respiratory effort, no wheezes or rales CV: Regular rate and rhythm, no murmur. Peripheral pulses 2+ Abdomen: soft, nondistended, no organomegaly Lymph: no cervical or axillary LAD Skin: warm and dry. Neuro: Alert and oriented x3. no tremor. RUE str 2/5, LUE str 5/5. RLE str 3/5, LLE str 5/5 Results CBC & Chem 7: 06/27/21 16:19 06/27/21 16:19 Labs: Abnormal Lab Results - Last 24 Hours (Table) 06/28/21 Range/Units 05:35 Cholesterol 224.00 H (0.00-200.00) mg/dL LDL Cholesterol, Calc 164.8 H (0.0-131.0) mg/dL HDL Cholesterol 33.40 L (40.00-60.00) mg/dL Thrombosis Risk Factor Assmnt - Choose All That Apply Any of the Below Risk Factors Present?: Yes Each Factor Represents 1 point: Age 41-60 years Each Risk Factor Represents 2 Points: Malignancy Thrombosis Risk Factor Assessment Total Risk Factor Score: 3 Thrombosis Risk Factor Assessment Level: Moderate Risk Assessment and Plan Plan: 1. Status epilepticus. Resolved with ativan. Restart keppra, continue vimpat and gabapentin. Neurology consult 2. R sided weakness. Suspect post seizure, MRI brain ordered. 3. Major depression; bipolar disorder. Continue home medications, including zoloft, trazodone, abilify. Psych consulted for further eval
[2021-06-29 02:15] LABS: Amphetamine Screen,Urine Not Detected (NotDetected); Barbiturate Screen,Urine Not Detected (NotDetected); Benzodiazepines Screen,Urine Detected (NotDetected); Cocaine Screen,Urine Not Detected (NotDetected); Methadone Screen, Urine Not Detected (NotDetected); Opiate Screen,Urine Detected (NotDetected); Oxycodone Screen, Urine Not Detected (NotDetected); Phencyclidine Screen,Urine Not Detected (NotDetected); Tricyclic Antidepressant,Urine Not Detected (NotDetected); Urn Cannabinoid Scrn Detected (NotDetected)
[2021-06-29 03:25] VITALS: TEMP 98
[2021-06-29] MEDS: PANTOPRAZOLE 40 MG TABLET PO SCH (06:11)
[2021-06-29] MEDS: HYDROcodone/APAP 10-325MG 1 EACH TAB PO PRN (08:58)
[2021-06-29] MEDS: ALPRAZolam 0.5 MG TAB PO PRN (08:58)
[2021-06-29] MEDS: busPIRone HCl 5 MG TAB PO SCH (09:59)
[2021-06-29] MEDS: LACOSAMIDE 50 MG TABLET PO SCH (09:59)
[2021-06-29] MEDS: APIXABAN 5 MG TAB PO SCH (10:00)
[2021-06-29] MEDS: GABAPENTIN 400 MG CAP PO SCH (10:00)
[2021-06-29] MEDS: SERTRALINE 100 MG TAB PO SCH (10:01)
[2021-06-29] MEDS: TOPIRAMATE 25 MG TAB PO SCH (10:01)
[2021-06-29] MEDS: LITHIUM CARBONATE 150 MG CAP PO SCH (10:42)
[2021-06-29 12:10] VITALS: BP 98/54; PULSE 52; RESP 18
--- NOTE | 2021-06-29 13:16 | P.DS ---
Providers Date of admission: 06/27/21 19:42 Expected date of discharge: 06/29/21 Attending physician: Adalberto Carney MD Consults: 06/27/21 19:43 Consult Physician Routine Consulting Provider: Chandana Miner Consult Reason/Comments: CVA Do you want consulting provider notified?: Yes 06/28/21 10:25 Consult Physician Routine Consulting Provider: Allen Colin Consult Reason/Comments: Signifcant psych history, med non-compliance and multiple medications Do you want consulting provider notified?: Yes Primary care physician: Adalberto Carney MD Hospital Course: Final Diagnoses: Acute right sided weakness with numbness, suspect Giovanny's paralysis. Possible CVA, OP MRI- patient has a loop recorder which will need clearance. 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 She states that she has been very overwhelmed with her chemotherapy has been feeling more down on herself. Over the past few days she has been having more seizures involving shaking as well as staring into space. Yesterday she developed R sided numbness and weakness so saw her PCP and was advised to come to the hospital. She states that last week she was told she had a 40% chance of survival and since then has been experiencing these episodes. She is on multiple antiepileptics including vimpat, keppra, gabapentin. She states she forgot to take her keppra for the past few weeks. On presentation to the ED she was noted to be in status epilepticus which was treated with loading dose of keppra and IV ativan. Evaluated by both neurology and psychiatry. Patient has a loop recorder, therefore per neurology patient will need outpatient MRI-once cleared. Medications adjusted as per psychiatry's recommendations. Significant clinical improvement. Right-sided weakness about the same. Denies chest pain, palpitations or shortness of breath. Denies lightheadedness dizziness or focal deficits. Patient has been cleared for discharge by both neurology and psychiatry. Patient has been advised to follow-up with Dr. Smith, her neurologist within 1-2 weeks. Patient will be discharged home in a stable condition with guarded prognosis. The impression and plan of care has been dictated as directed. : I performed a history and examination of this patient, discussed the same with the dictator. I agree with the dictator's note ,documented as a scribe. Any additional findings or plans will be noted. Patient Condition at Discharge: Stable Plan - Discharge Summary Discharge Rx Participant: No New Discharge Prescriptions: New Lacosamide [Vimpat] 50 mg PO BID tablet [place] Carbonate 150 mg PO BID #60 cap Continue ALPRAZolam [Xanax] 0.5 mg PO TID PRN PRN Reason: Anxiety Pantoprazole [Protonix] 40 mg PO BID Gabapentin 800 mg PO TID EPINEPHrine (Auto Inject) [Epipen] 0.3 mg IM ONCE PRN PRN Reason: Anaphylaxis Scopolamine [Scopolamine 1 MG/72 HR patch] 1 patch TRANSDERM Q72H traZODone HCL [Desyrel] 50 mg PO HS Topiramate [Topamax] 100 mg PO HS levETIRAcetam [Keppra] 750 mg PO BID HYDROcodone/APAP 10-325MG [[place] 10-325] 1 tab PO Q4H PRN PRN Reason: Pain busPIRone HCl [Buspar] 10 mg PO BID traZODone HCL 100 mg PO HS Metoprolol Succinate (ER) [Toprol XL] 25 mg PO BID Apixaban [Eliquis] 5 mg PO BID ARIPiprazole [Abilify] 20 mg PO HS Topiramate [Topamax] 50 mg PO QAM Sertraline [Zoloft] 200 mg PO HS Discontinued Desvenlafaxine [Pristiq ER] 100 mg PO DAILY #30 tab Discharge Medication List ALPRAZolam [Xanax] 0.5 mg PO TID PRN 06/27/21 [History] ARIPiprazole [Abilify] 20 mg PO HS 06/27/21 [History] Apixaban [Eliquis] 5 mg PO BID 06/27/21 [History] EPINEPHrine (Auto Inject) [Epipen] 0.3 mg IM ONCE PRN 06/27/21 [History] Gabapentin 800 mg PO TID 06/27/21 [History] HYDROcodone/APAP 10-325MG [[place] 10-325] 1 tab PO Q4H PRN 06/27/21 [History] Metoprolol Succinate (ER) [Toprol XL] 25 mg PO BID 06/27/21 [History] Pantoprazole [Protonix] 40 mg PO BID 06/27/21 [History] Scopolamine [Scopolamine 1 MG/72 HR patch] 1 patch TRANSDERM Q72H 06/27/21 [History] busPIRone HCl [Buspar] 10 mg PO BID 06/27/21 [History] levETIRAcetam [Keppra] 750 mg PO BID 06/27/21 [History] traZODone HCL 100 mg PO HS 06/27/21 [History] traZODone HCL [Desyrel] 50 mg PO HS 06/27/21 [History] Sertraline [Zoloft] 200 mg PO HS 06/28/21 [History] Topiramate [Topamax] 50 mg PO QAM 06/28/21 [History] Topiramate [Topamax] 100 mg PO HS 06/28/21 [History] Lacosamide [Vimpat] 50 mg PO BID tablet 06/29/21 [Rx] [place] Carbonate 150 mg PO BID #60 cap 06/29/21 [Rx] Follow up Appointment(s)/Referral(s): Adalberto Carney MD [Primary Care Provider] - 1-2 days [facility] [NON-STAFF] - Patient Instructions/Handouts: Seizure/Epilepsy Discharge Instructions & Follow-Up Discharge Disposition: HOME WITH HOME HEALTH SERVICES
--- NOTE | 2021-06-29 13:23 | P.PN ---
Progress Note - Text Progress Note Date: 06/29/21 Interval History: Patient was seen today for psychiatric follow-up regarding patient's depression and anxiety disorder. Patient was seen at the bedside today and appeared to have a brighter affect. She claims that she is doing better today in terms of her mood and anxiety. She states that she was able to sleep throughout the night fairly well yesterday. She is denying any current side effects at this time. She asked questions about the lithium and when she should have her blood drawn and inspector automatic typewriter spoke with her and answered her questions. She seemed to be fairly future oriented and asking when she can be discharged. At this time patient denies any suicidal or homical ideations, intent or plan. Patient denies any auditory, visual hallucinations and denies any paranoia or delusions. Patient denies any side effects from the medications and has been compliant with meds. Mental Status Exam: General Appearance: Patient is wearing a bandana, appears to be stated age is alert, directable, and cooperative. Patient appears to have fair hygiene and grooming wearing hospital gown with fair eye contact. Behavior: Patient is calmly lying in bed without any agitated behavior. cooperative Speech: Patient's speech is fluent and nonpressured. Mood/Affect: Patient reports their mood is "better", affect is congruent and brighter Suicidality/Homicidality: Patient denies having any suicidal or homicidal ideation intent or plan. Perceptions: Patient denies any visual hallucinations and denies any auditory hallucinations Though content/process: There is no evidence of any delusional thought content and thought process is linear and goal-directed. future oriented Memory and concentration: AOX3, grossly intact for the purposes of this session. Can spell "WORLD" backwards Judgment and insight: fair IMPRESSIONS: Depressive disorder unspecified, rule out bipolar depression vs. major depressive disorder Generalized anxiety disorder non compliance with medication regimen hx of psychogenic seizures PLAN: -At this time patient DOES NOT meet criteria for inpatient psychiatric admission. -Delirium precautions recommended with patient including - avoiding use of narcotics and TANK CLEANING SUPERVISOR sedatives, limit anticholinergic medications when possible, frequent re-orientation, minimize use of restraints, open window shades during the day and close them at night -Would recommend the following medication changes/additions: BuSpar to 15 mg twice a day for anxiety. Continue Xanax when necessary for anxiety. trazodone to 200 mg daily at bedtime for insomnia/mood. Zoloft 200 mg daily for mood/anxiety. Discontinue Pristiq as patient should not be on two serotonergic antidepressants at the same time. continue with abilify 20 mg qhs for mood adjunct. continue with [place] 150 mg bid for mood adjunct. -Patient follows up with her therapist at [facility] and PCP dr. Carney -Communicated plan to patient's nurse -At this time psychiatry will sign off. -Please contact with any questions.
== END 2021-06-29 13:05 | disposition home health service (06) | DRG 100 ==
LOC: EC 15:47 → 3SCARD 19:42
PROVIDERS: ADMIT Family Medicine; ATTEND Family Medicine
DX: G40.901 Epilepsy, unspecified, not intractable, with status epilepticus (principal); I63.9 Cerebral infarction, unspecified; C78.7 Secondary malignant neoplasm of liver and intrahepatic bile duct; C78.4 Secondary malignant neoplasm of small intestine; G81.91 Hemiplegia, unspecified affecting right dominant side; G83.84 Todd's paralysis (postepileptic); F31.9 Bipolar disorder, unspecified; Z91.14 Patient's other noncompliance with medication regimen; Z20.822 Contact with and (suspected) exposure to COVID-19; F41.1 Generalized anxiety disorder; R53.1 Weakness; G62.9 Polyneuropathy, unspecified; Z90.49 Acquired absence of other specified parts of digestive tract; Z98.890 Other specified postprocedural states; Z98.51 Tubal ligation status; Z90.3 Acquired absence of stomach [part of]; Z91.013 Allergy to seafood; Z88.8 Allergy status to other drugs, medicaments and biological substances; Z91.018 Allergy to other foods; Z79.899 Other long term (current) drug therapy; Z79.01 Long term (current) use of anticoagulants; Z86.73 Personal history of transient ischemic attack (TIA), and cerebral infarction without residual deficits; Z86.69 Personal history of other diseases of the nervous system and sense organs; Z85.028 Personal history of other malignant neoplasm of stomach; Z85.01 Personal history of malignant neoplasm of esophagus; Z92.21 Personal history of antineoplastic chemotherapy; Z87.828 Personal history of other (healed) physical injury and trauma
CPT/HCPCS: 36415; 70450; 70496; 70498; 71045; 80053; 80061; 80306; 84443; 84484; 85025; 85610; 85730; 87635; 93005; 94760; 95816; 96374; 96375; 99285

== ENCOUNTER 2021-09-09 12:10 | Inpatient (IN) | payer MEDICARE, MEDICAID ==
--- NOTE | 2021-09-09 12:50 | ED ---
General Adult HPI - General Chief complaint: Psychiatric Symptoms Stated complaint: Mental Health Time Seen by Provider: 09/09/21 12:34 Source: patient, family, RN notes reviewed Mode of arrival: ambulatory Limitations: no limitations - History of Present Illness Initial comments: Patient is a pleasant 46-year-old female presenting to the emergency department with concerns with depression. Patient reportedly was recently at [facility] for 12 days following overdose. Patient denies this being intentional. Patient denies suicidal thoughts. Patient states she has not been sleeping or eating or drinking well. No homicidal thoughts. No hallucinations. No alcohol or street drug use. - Related Data Home Medications Medication Instructions Recorded Confirmed ALPRAZolam [Xanax] 0.5 mg PO TID PRN 06/27/21 06/28/21 ARIPiprazole [Abilify] 20 mg PO HS 06/27/21 06/28/21 Apixaban [Eliquis] 5 mg PO BID 06/27/21 06/28/21 EPINEPHrine (Auto Inject) [Epipen] 0.3 mg IM ONCE PRN 06/27/21 06/27/21 Gabapentin 800 mg PO TID 06/27/21 06/28/21 HYDROcodone/APAP 10-325MG [[place] 1 tab PO Q4H PRN 06/27/21 06/28/21 10-325] Metoprolol Succinate (ER) [Toprol 25 mg PO BID 06/27/21 06/28/21 XL] Pantoprazole [Protonix] 40 mg PO BID 06/27/21 06/28/21 Scopolamine [Scopolamine 1 MG/72 1 patch TRANSDERM Q72H 06/27/21 06/27/21 HR patch] busPIRone HCl [Buspar] 10 mg PO BID 06/27/21 06/28/21 levETIRAcetam [Keppra] 750 mg PO BID 06/27/21 06/28/21 traZODone HCL 100 mg PO HS 06/27/21 06/27/21 traZODone HCL [Desyrel] 50 mg PO HS 06/27/21 06/27/21 Sertraline [Zoloft] 200 mg PO HS 06/28/21 06/28/21 Topiramate [Topamax] 50 mg PO QAM 06/28/21 06/28/21 Topiramate [Topamax] 100 mg PO HS 06/28/21 06/28/21 Previous Rx's Medication Instructions Recorded Lacosamide [Vimpat] 50 mg PO BID tablet 06/29/21 [place] Carbonate 150 mg PO BID #60 cap 06/29/21 Allergies Allergy/AdvReac Type Severity Reaction Status Date / Time duloxetine Allergy Rash/Hives Verified 06/27/21 18:55 gluten Allergy Swelling Verified 06/27/21 18:55 phenytoin [From Dilantin] Allergy Unknown Verified 06/27/21 18:55 shellfish derived [Shellfish] Allergy Anaphylaxis Verified 06/27/21 18:55 Review of Systems ROS Statement: Those systems with pertinent positive or pertinent negative responses have been documented in the HPI. ROS Other: All systems not noted in ROS Statement are negative. Constitutional: Denies: fever Eyes: Denies: eye pain ENT: Denies: ear pain Respiratory: Denies: cough Cardiovascular: Denies: chest pain Endocrine: Denies: fatigue Gastrointestinal: Denies: abdominal pain Genitourinary: Denies: dysuria Skin: Denies: rash Psychiatric: Reports: depression. Denies: auditory hallucinations, visual hallucinations, homicidal thoughts Past Medical History Past Medical History: Cancer, CVA/TIA Additional Past Medical History / Comment(s): pt. states they have had TIA in 2014, 2017, august 30 2019, pseudoseziures, bipolar 1, anxiety. liver, upper intestion, esophageal CA History of Any Multi-Drug Resistant Organisms: None Reported Past Surgical History: Section, Cholecystectomy, Tonsillectomy, Tubal Ligation Additional Past Surgical History / Comment(s): fundaplication, laproscopic scar tissue removal, partial stomach removal surgery R/T CA Past Anesthesia/Blood Transfusion Reactions: No Reported Reaction Past Psychological History: Anxiety, Bipolar, Depression Smoking Status: Never smoker Past Alcohol Use History: None Reported Past Drug Use History: None Reported - Past Family History Mother Family Medical History: Congestive Heart Failure (CHF) Sister(s) Additional Family Medical History / Comment(s): Lupus Brother(s) Additional Family Medical History / Comment(s): cystic fibrosis General Exam Limitations: no limitations General appearance: alert, in no apparent distress Head exam: Present: normocephalic Eye exam: Present: normal appearance Respiratory exam: Present: normal lung sounds bilaterally Cardiovascular Exam: Present: regular rate, normal rhythm GI/Abdominal exam: Present: soft. Absent: tenderness Extremities exam: Present: normal inspection Neurological exam: Present: alert. Absent: motor sensory deficit Psychiatric exam: Present: depressed, flat affect Skin exam: Present: normal color Course Vital Signs 09/09/21 12:30 Temperature 98.2 F Pulse Rate 108 H Respiratory 18 Rate Blood Pressure 114/88 O2 Sat by Pulse 98 Oximetry Medical Decision Making - Lab Data Lab Results 09/09/21 Range/Units 12:59 Serum Alcohol <10 mg/dL Disposition Clinical Impression: Depression Disposition: TRANSFER TO PSYCH HOSP/UNIT Is patient prescribed a controlled substance at d/c from ED?: No Referrals: Adalberto Carney MD [Primary Care Provider] - 1-2 days Decision Time: 13:45
[2021-09-09] MEDS ORDERED: MAGNESIUM HYDROXIDE 2,400 MG/10 ML CUP PO PRN (19:32)
[2021-09-09] MEDS ORDERED: LORazepam 1 MG TAB PO PRN (19:32)
[2021-09-09] MEDS ORDERED: MAG HYDROX/AL HYDROX/SIMETH 30 ML CUP PO PRN (19:32)
[2021-09-10] MEDS ORDERED: NICOTINE 14MG/24HR PATCH TRANSDERM SCH (09:00)
[2021-09-10] MEDS ORDERED: traMADol 50 MG TAB PO STA (09:40)
--- NOTE | 2021-09-10 10:00 | US ---
EXAMINATION TYPE: US venous doppler duplex LE LT DATE OF EXAM: 09/10/2021 9:15 AM COMPARISON: NONE CLINICAL HISTORY: swelling. SIDE PERFORMED: Left TECHNIQUE: The lower extremity deep venous system is examined utilizing real time linear array sonog nancy with graded compression, doppler sonography and color-flow sonography. VESSELS IMAGED: Common Femoral Vein Deep Femoral Vein Greater Saphenous Vein * Femoral Vein Popliteal Vein Small Saphenous Vein * Proximal Calf Veins (* superficial vessels) Left Leg: Positive for DVT from the CFV to the proximal calf veins. Grayscale, color doppler, spectral doppler imaging performed of the deep veins of the left lower extr emity. IMPRESSION: Acute DVT beginning in the left groin extends to entire visualized portion of the left lo wer extremity. A [place] level critical message alert has been initiated for Chelsie Carney DO via the [employer] Critical Results System on 09/10/2021 9:58 AM. This message alert has been sent to DO emily Kline the preferences provided by the clinician for the receipt of Radiology Critical Findings. Message ID [id number].
[2021-09-10] MEDS ORDERED: traMADol 50 MG TAB PO PRN (10:25)
--- NOTE | 2021-09-10 10:36 | P.HPIM ---
History of Present Illness 46-year-old female admitted to psychiatric floor for acute psychosis I was consulted for her left leg swelling patient has left leg swelling found to have extensive DVT extending from her left groin into the entire left leg. Patient denied any shortness of breath patient is bit tachycardic because of acute psychosis. Patient denied any chest pain at this time. Patient is not requiring any oxygen patient is not hypoxic. Patient denied any recent travel patient has been ambulatory or bedbound denied any history of DVT or pulmonary embolism in the family. Patient is up to date with her cancer screening procedures although admits to 20 pound weight loss in 6 months and unsure why she lost her patient. And this weight loss on it is unintentional as per the patient. REVIEW OF SYSTEMS: CONSTITUTIONAL: No fever, no malaise, no fatigue. HEENT: No recent visual problems or hearing problems. Denied any sore throat. CARDIOVASCULAR: No chest pain, orthopnea, PND, no palpitations, no syncope. PULMONARY: No shortness of breath, no cough, no hemoptysis. GASTROINTESTINAL: No diarrhea, no nausea, no vomiting, no abdominal pain. NEUROLOGICAL: No headaches, no weakness, no numbness. HEMATOLOGICAL: Denies any bleeding or petechiae. GENITOURINARY: Denies any burning micturition, frequency, or urgency. MUSCULOSKELETAL/RHEUMATOLOGICAL: Denies any joint pain, swelling, or any muscle pain. ENDOCRINE: Denies any polyuria or polydipsia. The rest of the 14-point review of systems is negative. PHYSICAL EXAMINATION: GENERAL: The patient is alert and oriented x3, not in any acute distress. Well developed, well nourished. HEENT: Pupils are round and equally reacting to light. EOMI. No scleral icterus. No conjunctival pallor. Normocephalic, atraumatic. No pharyngeal erythema. No thyromegaly. CARDIOVASCULAR: S1 and S2 present. No murmurs, rubs, or gallops. PULMONARY: Chest is clear to auscultation, no wheezing or crackles. ABDOMEN: Soft, nontender, nondistended, normoactive bowel sounds. No palpable organomegaly. MUSCULOSKELETAL: No joint swelling or deformity. EXTREMITIES: No cyanosis, clubbing, swelling of the left lower extremity. NEUROLOGICAL: Gross neurological examination did not reveal any focal deficits. SKIN: No rashes. Assessment and plan -Extensive DVT of the left lower extremity patient was started on Eliquis because of the extensiveness of DVT , consult vascular surgery, we'll use nonsteroidal anti-inflammatory recent Tylenol for pain. Patient probably will benefit from follow-up with hematology as an outpatient patient appears to have unprovoked DVT. Does have family history of lupus will obtain lupus anticoagulant. -Seizure history for which patient is on antiseizure medications which will be continued -Sinus tachycardia probably because of acute psychosis breath and now pulmonary embolism we'll obtain a troponin le Past Medical History Past Medical History: Cancer, CVA/TIA Additional Past Medical History / Comment(s): pt. states they have had TIA in 2014, 2017, august 30 2019, pseudoseziures, bipolar 1, anxiety. liver, upper intestion, esophageal CA History of Any Multi-Drug Resistant Organisms: None Reported Past Surgical History: Section, Cholecystectomy, Tonsillectomy, Tubal Ligation Additional Past Surgical History / Comment(s): fundaplication, laproscopic scar tissue removal, partial stomach removal surgery R/T CA Past Anesthesia/Blood Transfusion Reactions: No Reported Reaction Past Psychological History: Anxiety, Bipolar, Depression Smoking Status: Never smoker Past Alcohol Use History: None Reported Past Drug Use History: None Reported - Past Family History Mother Family Medical History: Congestive Heart Failure (CHF) Sister(s) Additional Family Medical History / Comment(s): Lupus Brother(s) Additional Family Medical History / Comment(s): cystic fibrosis Medications and Allergies Home Medications Medication Instructions Recorded Confirmed Type EPINEPHrine (Auto Inject) [Epipen] 0.3 mg IM ONCE PRN 06/27/21 09/09/21 History Pantoprazole [Protonix] 40 mg PO BID 06/27/21 09/09/21 History levETIRAcetam [Keppra] 750 mg PO BID 06/27/21 09/09/21 History Topiramate [Topamax] 50 mg PO Q12H 06/28/21 09/09/21 History Aspirin EC [Ecotrin Low Dose] 81 mg PO DAILY 09/09/21 09/09/21 History Atorvastatin Calcium [Lipitor] 10 mg PO HS 09/09/21 09/09/21 History Desvenlafaxine Succinate [Pristiq 50 mg PO DAILY 09/09/21 09/09/21 History ER] Lacosamide [Vimpat] 100 mg PO BID 09/09/21 09/09/21 History Allergies Allergy/AdvReac Type Severity Reaction Status Date / Time duloxetine Allergy Rash/Hives Verified 09/09/21 15:53 gluten Allergy Swelling Verified 09/09/21 15:53 phenytoin [From Dilantin] Allergy Unknown Verified 09/09/21 15:53 shellfish derived [Shellfish] Allergy Anaphylaxis Verified 09/09/21 15:53 Physical Exam Vitals: Vital Signs Temp Pulse Pulse Resp BP BP Pulse Ox 09/10/21 09:53 116 H 18 119/84 98 09/10/21 09:20 97.5 F L 112 H 18 116/83 98 09/10/21 08:35 97.0 F L 108 H 16 112/72 96 09/10/21 08:29 145 H 22 120/77 97 09/09/21 20:17 96.6 F L 131 H 18 108/75 97 09/09/21 19:42 98.2 F 108 H 18 100/79 98 09/09/21 12:30 98.2 F 108 H 18 114/88 98 Intake and Output 09/09/21 09/10/21 09/10/21 22:59 06:59 14:59 Other: Weight 79.6 kg
[2021-09-10] MEDS: FAMOTIDINE 20 MG TAB PO SCH ×2 (10:50→20:48)
[2021-09-10] MEDS: TOPIRAMATE 25 MG TAB PO SCH ×2 (10:51→20:48)
[2021-09-10] MEDS: MELOXICAM 7.5 MG TAB PO SCH (10:51)
[2021-09-10] MEDS: LACOSAMIDE 50 MG TABLET PO SCH ×2 (10:51→20:48)
[2021-09-10] MEDS: APIXABAN 5 MG TAB PO SCH ×2 (10:51→20:48)
[2021-09-10] MEDS: ACETAMINOPHEN TAB 325 MG TAB PO PRN ×2 (10:52→15:14)
[2021-09-10 11:23] LABS: ALT 26 U/L (4-34); AST 24 U/L (14-36); African American GFR (CKD) >90 (>60 ml/min/1.73 sqM); Albumin 4.2 g/dL (3.5-5.0); Alkaline Phosphatase 96 U/L (38-126); Anion Gap 14 mmol/L; Blood Urea Nitrogen 17 mg/dL (7-17); Carbon Dioxide 18 mmol/L (22-30); Chloride 102 mmol/L (98-107); Glucose 128 mg/dL (74-99); Non-African American GFR(CKD) >90 (>60 ml/min/1.73 sqM); Potassium 3.6 mmol/L (3.5-5.1); Sodium 134 mmol/L (137-145); Total Bilirubin 1.1 mg/dL (0.2-1.3); Total Protein 7.6 g/dL (6.3-8.2)
[2021-09-10 11:32] LABS: Basophils % (A) 0 %; Eosinophils % (A) 0 %; HGB 15.4 gm/dL (11.4-16.0); Lymphocytes # (A) 1.2 k/uL (1.0-4.8); Lymphocytes % (A) 9 %; MCH 31.1 pg (25.0-35.0); MCHC 32.6 g/dL (31.0-37.0); MCV 95.2 fL (80.0-100.0); Mean Platelet Volume 12.2; Monocytes # (A) 0.5 k/uL (0-1.0); Monocytes % (A) 4 %; Neutrophils # (A) 11.6 k/uL (1.3-7.7); Neutrophils % (A) 86 %; RBC 4.94 m/uL (3.80-5.40); RDW 14.6 % (11.5-15.5); WBC 13.5 k/uL (3.8-10.6)
[2021-09-10 12:10] LABS: Large Platelets Present; Platelet Count 130 k/uL (150-450)
--- NOTE | 2021-09-10 14:27 | P.GSCN ---
History of Present Illness Consult date: 09/10/21 Reason for Consult: LLE DVT History of present illness: 46-year-old female currently being treated at the psychiatric floor for acute psychosis was found to have a swollen left lower extremity and was complaining of left calf pain. She underwent ultrasound that found extensive DVT spanning the entire left leg. She was started on Eliquis treatment due to her psych status and inability to have IV drips. Currently she denies any fevers, chills, chest pain or shortness of breath. Patient denied any recent travel patient has been ambulatory or bedbound denied any history of DVT or pulmonary embolism in the family. Patient is up to date with her cancer screening procedures although admits to 20 pound weight loss in 6 months and unsure why she lost her patient. And this weight loss on it is unintentional as per the patient. Review of Systems All systems: negative (what is mentioned in the HPI or PMH) Past Medical History Past Medical History: Cancer, CVA/TIA Additional Past Medical History / Comment(s): pt. states they have had TIA in 2014, 2017, august 30 2019, pseudoseziures, bipolar 1, anxiety. liver, upper intestion, esophageal CA History of Any Multi-Drug Resistant Organisms: None Reported Past Surgical History: Section, Cholecystectomy, Tonsillectomy, Tubal Ligation Additional Past Surgical History / Comment(s): fundaplication, laproscopic scar tissue removal, partial stomach removal surgery R/T CA Past Anesthesia/Blood Transfusion Reactions: No Reported Reaction Past Psychological History: Anxiety, Bipolar, Depression Smoking Status: Never smoker Past Alcohol Use History: None Reported Past Drug Use History: None Reported - Past Family History Mother Family Medical History: Congestive Heart Failure (CHF) Sister(s) Additional Family Medical History / Comment(s): Lupus Brother(s) Additional Family Medical History / Comment(s): cystic fibrosis Medications and Allergies Home Medications Medication Instructions Recorded Confirmed Type EPINEPHrine (Auto Inject) [Epipen] 0.3 mg IM ONCE PRN 06/27/21 09/09/21 History Pantoprazole [Protonix] 40 mg PO BID 06/27/21 09/09/21 History levETIRAcetam [Keppra] 750 mg PO BID 06/27/21 09/09/21 History Topiramate [Topamax] 50 mg PO Q12H 06/28/21 09/09/21 History Aspirin EC [Ecotrin Low Dose] 81 mg PO DAILY 09/09/21 09/09/21 History Atorvastatin Calcium [Lipitor] 10 mg PO HS 09/09/21 09/09/21 History Desvenlafaxine Succinate [Pristiq 50 mg PO DAILY 09/09/21 09/09/21 History ER] Lacosamide [Vimpat] 100 mg PO BID 09/09/21 09/09/21 History Allergies Allergy/AdvReac Type Severity Reaction Status Date / Time duloxetine Allergy Rash/Hives Verified 09/09/21 15:53 gluten Allergy Swelling Verified 09/09/21 15:53 phenytoin [From Dilantin] Allergy Unknown Verified 09/09/21 15:53 shellfish derived [Shellfish] Allergy Anaphylaxis Verified 09/09/21 15:53 Surgical - Exam Vital Signs Temp Pulse Resp BP Pulse Ox 98.2 F 108 H 18 114/88 98 09/09/21 12:30 09/09/21 12:30 09/09/21 12:30 09/09/21 12:30 09/09/21 12:30 GENERAL: The patient is alert and oriented x3, not in any acute distress. Well developed, well nourished. Flat affect HEENT: Pupils are round and equally reacting to light. EOMI. No scleral icterus. No conjunctival pallor. Normocephalic, atraumatic. No pharyngeal erythema. No thyromegaly. CARDIOVASCULAR: S1 and S2 present. No murmurs, rubs, or gallops. PULMONARY: Chest is clear to auscultation, no wheezing or crackles. ABDOMEN: Soft, nontender, nondistended, normoactive bowel sounds. No palpable organomegaly. MUSCULOSKELETAL: No joint swelling or deformity. EXTREMITIES: No cyanosis, clubbing, 2+ edema of the left lower extremity. Palpable dp pulses bilaterally. No ischemia of the left foot or toes. Good capillary refill. +tenderness to the left calf and thigh. SKIN: No rashes. Results - Labs 09/10/21 10:38 09/10/21 10:38 Abnormal Lab Results - Last 24 Hours (Table) 09/10/21 09/10/21 Range/Units 10:38 10:38 WBC 13.5 H (3.8-10.6) k/uL Hct 47.0 H (34.0-46.0) % Plt Count 130 L (150-450) k/uL Neutrophils # 11.6 H (1.3-7.7) k/uL Sodium 134 L (137-145) mmol/L Carbon Dioxide 18 L (22-30) mmol/L Glucose 128 H (74-99) mg/dL TSH 4.750 H (0.465-4.680) mIU/L Diabetes panel 09/10/21 Range/Units 10:38 Sodium 134 L (137-145) mmol/L Potassium 3.6 (3.5-5.1) mmol/L Chloride 102 (98-107) mmol/L Carbon Dioxide 18 L (22-30) mmol/L BUN 17 (7-17) mg/dL Creatinine 0.57 (0.52-1.04) mg/dL Glucose 128 H (74-99) mg/dL Calcium 10.0 (8.4-10.2) mg/dL AST 24 (14-36) U/L ALT 26 (4-34) U/L Alkaline Phosphatase 96 (38-126) U/L Total Protein 7.6 (6.3-8.2) g/dL Albumin 4.2 (3.5-5.0) g/dL Thyroid panel 09/10/21 Range/Units 10:38 TSH 4.750 H (0.465-4.680) mIU/L Calcium panel 09/10/21 Range/Units 10:38 Calcium 10.0 (8.4-10.2) mg/dL Albumin 4.2 (3.5-5.0) g/dL Pituitary panel 09/10/21 Range/Units 10:38 Sodium 134 L (137-145) mmol/L Potassium 3.6 (3.5-5.1) mmol/L Chloride 102 (98-107) mmol/L Carbon Dioxide 18 L (22-30) mmol/L BUN 17 (7-17) mg/dL Creatinine 0.57 (0.52-1.04) mg/dL Glucose 128 H (74-99) mg/dL Calcium 10.0 (8.4-10.2) mg/dL TSH 4.750 H (0.465-4.680) mIU/L Adrenal panel 09/10/21 Range/Units 10:38 Sodium 134 L (137-145) mmol/L Potassium 3.6 (3.5-5.1) mmol/L Chloride 102 (98-107) mmol/L Carbon Dioxide 18 L (22-30) mmol/L BUN 17 (7-17) mg/dL Creatinine 0.57 (0.52-1.04) mg/dL Glucose 128 H (74-99) mg/dL Calcium 10.0 (8.4-10.2) mg/dL Total Bilirubin 1.1 (0.2-1.3) mg/dL AST 24 (14-36) U/L ALT 26 (4-34) U/L Alkaline Phosphatase 96 (38-126) U/L Total Protein 7.6 (6.3-8.2) g/dL Albumin 4.2 (3.5-5.0) g/dL - Imaging Additional studies: LLE U/S images and read reviewed. Assessment and Plan Assessment: 1. Extensive deep venous thrombosis of the left lower extremity. 2. Acute Psychosis Plan: Patient may benefit from endovascular thrombectomy of the left lower extremity in the future if no improvement of her swelling or persistent pain. No intervention at this time. Agree with continued oral anticoagulation. Patient will likely have some form of post-thrombotic syndrome and venous insufficiency and will benefit from compression therapy and elevation. Patient will need to follow up in the office in 2-4 weeks. Thank you for the consultation and if there are any questions feel free to contact me at any time.
[2021-09-10] MEDS: OLANZapine 5 MG TAB PO SCH ×2 (15:57→23:06)
[2021-09-10 16:35] LABS: Chol/HDL Ratio 6.35 Ratio; LDL Cholesterol,Calculated 161.1 mg/dL (0.0-131.0)
--- NOTE | 2021-09-10 17:01 | HP ---
HISTORY AND PHYSICAL DATE OF SERVICE: 09/10/2021 IDENTIFYING DATA: The patient is a 46-year-old female. She resides with her fiance. She presented to the ED for evaluation. CHIEF COMPLAINT: The patient was depressed. She had a recent admission to [facility] for 12 days following overdose, which she denied as intentional. She states she needs help with her mental health. HISTORY OF PRESENTING ILLNESS: The patient was only able to give very limited information about her situation. She said that she has had past psychiatric hospitalizations, though none in at least one year. She could not recall where she was hospitalized. She did not believe that she was hospitalized at this facility. She stated that she is not on any psychotropic medications, though has been on them in the past. Her home medication list indicates that she is on Pristiq 50 mg a day in addition to Keppra, Topamax and Vimpat, apparently for seizure disorder. She could not tell me who prescribes her medications. She does say that she had been seen through [facility], though stopped going there about one and a half years ago. She did not say why she stopped going. When I asked her when the last time was that she was feeling reasonably well, she said it would be about 6 months ago. She indicated that last summer she was feeling fairly good. She could not describe what changed over the last 6 months or what factors may have precipitated her difficulties. She was able to say that she has anxiety and depression issues, though she could not give any details. When I asked her what happened to get her to the hospital, the only thing she was able to say was that her mother was worried about her and apparently helped get her to the hospital. It is noted the patient had an admission to this unit 12/19/2019 with a diagnosis of depression without psychotic features. There was possible rule out of bipolar disorder, personality disorder and panic disorder. She was admitted at that time for having depression with suicide thoughts and was considering overdose. She had stated that her grandparents were her primary support and her "savior as a kid." Both had in November and December of 2019. It was documented that the December 2019 admission was her fourth inpatient admission, with the last previous one in 2017. She was noted to have a history of 3 suicide attempts by overdose. It was documented the patient was on Abilify, Pristiq, trazodone, Topamax and Klonopin. The following was documented: "She has been on Cymbalta in the past, which caused allergic reaction. Lexapro caused suicide thoughts and Zyprexa was just 'bad for me.'" She was noted to use edible marijuana, though felt that she had a bad reaction to it and indicated she planned not to use it anymore. The patient stated that she has been sleeping poorly. She was vague about appetite. She denied hallucinations or delusional thinking, including denying paranoid thinking. She was unclear about whether she has panic attacks or any post-traumatic issues. She is admitted for further evaluation. SUBSTANCE USE HISTORY: Uncertain. PAST MEDICAL HISTORY: Seizure disorder and hyperlipidemia. FAMILY AND SOCIAL HISTORY: Patient states that she lives with her fiance. They have been together for 7 years. She stated she has 5 children who are grown. She stays in touch with them. She also stays in touch with her mother, who is in the area. She did not provide any further information. MENTAL STATUS EXAM: Patient was lying in bed. She had been advised to stay in bed for 24 hours due to deep vein thrombosis that was diagnosed on admission. She gave fair eye contact at best. Psychomotor activity was slowed. She spoke with a very soft, airy voice. At times it was difficult to even hear what she was saying. Mostly she would have quite a latency before she would respond to a question. She might get one or two words out for some questions and then not respond to others. She was not able to say anything spontaneously. Affect was anxious, intense, her mood depressed. She was significantly distressed. She was tearful throughout most of the interview. It was difficult to say whether or not there was any indication of thought disorder. She was vague about whether or not she had any thoughts of harm to self or others. On cognitive exam, she thought it was . She said the month was August and the year was 2021. She said the president was Karly. She did not make an effort to answer any other cognitive questions. PHYSICAL EXAM: As per medical consultation. ASSESSMENT: This 46-year-old female is in a highly distressed state. It is unclear what precipitating factors are part of her situation. She has a long history of mood disorder. Strengths include that she was able to provide some basic information and was reasonably oriented. Weakness includes severe mood disorder. DIAGNOSIS: 1. Major depression. 2. Possible history of bipolar disorder. 3. Seizure disorder. 4. Hyperlipidemia. RECOMMENDATIONS: Patient will be admitted for comprehensive medical, psychiatric and psychosocial evaluation. We will engage the patient in individual and group therapeutic activities. I will start the patient on Zyprexa 5 mg twice a day. The aim of Zyprexa is to help reduce physiologic stress response relating to her severe anxiety and distress. I would look for short-term use of Zyprexa, hopefully aiming to see if some of her anxiety resolves to where she can be somewhat more engaged in the interview so as to gain more information about her current situation. I will make efforts to contact her fiance or other family members as appropriate. We will focus on stabilization and discharge planning. SOILA / JARRETT: [id number] /
[2021-09-10] MEDS ORDERED: ATORVASTATIN 10 MG TAB PO SCH (21:00)
[2021-09-11 06:21] VITALS: RESP 16; TEMP 97.4
[2021-09-11] MEDS: OLANZapine 5 MG TAB PO SCH (09:02)
[2021-09-11] MEDS: MELOXICAM 7.5 MG TAB PO SCH (09:02)
[2021-09-11] MEDS: APIXABAN 5 MG TAB PO SCH (09:05)
[2021-09-11] MEDS: LACOSAMIDE 50 MG TABLET PO SCH (09:05)
[2021-09-11] MEDS: TOPIRAMATE 25 MG TAB PO SCH (09:05)
[2021-09-11] MEDS: FAMOTIDINE 20 MG TAB PO SCH (09:05)
[2021-09-11 09:27] LABS: HCT 48.3 % (34.0-46.0); Hypochromasia Slight; MCH 30.9 pg (25.0-35.0); MCHC 31.2 g/dL (31.0-37.0); Mean Platelet Volume 11.5; Platelet Count 145 k/uL (150-450); RBC 4.87 m/uL (3.80-5.40); RDW 14.4 % (11.5-15.5); WBC 8.9 k/uL (3.8-10.6)
[2021-09-11 09:36] LABS: ALT 21 U/L (4-34); AST 19 U/L (14-36); African American GFR (CKD) >90 (>60 ml/min/1.73 sqM); Alkaline Phosphatase 87 U/L (38-126); Anion Gap 13 mmol/L; Blood Urea Nitrogen 15 mg/dL (7-17); Calcium 9.8 mg/dL (8.4-10.2); Carbon Dioxide 22 mmol/L (22-30); Chloride 101 mmol/L (98-107); Glucose 117 mg/dL (74-99); Non-African American GFR(CKD) >90 (>60 ml/min/1.73 sqM); Potassium 3.6 mmol/L (3.5-5.1); Sodium 136 mmol/L (137-145); Total Bilirubin 0.8 mg/dL (0.2-1.3); Total Protein 7.5 g/dL (6.3-8.2)
[2021-09-11 09:47] VITALS: BP 98/70
[2021-09-11 09:50] VITALS: PULSE 96
--- NOTE | 2021-09-11 13:28 | CT ---
EXAMINATION TYPE: CT angio chest DATE OF EXAM: 09/11/2021 COMPARISON: Chest x-ray June 27, 2021 HISTORY: Psychosis, newly diagnosed left lower extremity DVT. Shortness of breath. CT DLP: 236.5 mGycm. Automated Exposure Control for Dose Reduction was Utilized. CONTRAST: CTA scan of the thorax is performed with IV Contrast, patient injected with 100, wasted 46 mL of Isov ue 370, pulmonary embolism protocol. MIP Images are created on CT scanner and reviewed. FINDINGS: LUNGS: The lungs are grossly clear, there is no concerning parenchymal mass or nodule identified. T here is no pleural effusion or pneumothorax seen. The tracheobronchial tree is patent. MEDIASTINUM: There is suboptimal bolus with most dense contrast in the SVC but again evaluation of pe ripheral vessels suboptimal. There is confirmation of small emboli in the segmental branches of the right middle lobe axial image 74 for reference with subsegmental extension. Segmental emboli right lo wer lobe axial images 74 through 76 with subsegmental extension and right lower lobe axial image 76 a lso identified. Small amount of left-sided lower lobe segmental embolism with subsegmental extension axial image 83 through 85 is noted. There are no greater than 1 cm hilar or mediastinal lymph nodes. No cardiomegaly or pericardial effusion is seen. No right ventricular dilatation. OTHER: Surgical changes from gastric sleeve. Cholecystectomy clips. IMPRESSION: 1. Suboptimal study with bilateral right greater than left peripheral pulmonary emboli. No RV strain. 2. No suspicious acute pulmonary infiltrate.
[2021-09-12 15:28] LABS: APTT 55 Sec(s) (<43); APTT 1:1 Mix 48 Sec(s) (<43); DRVVT 1:1 Mix 40 Sec(s) (<44); Dilute Russell Viper Venom 50 Sec(s) (<44); Hexagonal Phase Neutralization Positive (Negative)
--- NOTE | 2021-09-12 21:31 | DS ---
DISCHARGE SUMMARY DATE OF SERVICE: 09/11/2021 DATE OF ADMISSION: 09/09/2021. DATE OF DISCHARGE: 09/11/2021. ADMISSION DIAGNOSES: 1. Major depression. 2. Possible history of bipolar disorder. 3. Seizure disorder. 4. Hyperlipidemia. DISCHARGE DIAGNOSIS: 1. Bilateral pulmonary embolism. HISTORY OF PRESENTING ILLNESS: The patient is a 46-year-old female. She was admitted due to depression issues, though the patient was not able to provide any information on admission. She had recently been hospitalized at [facility] for 12 days for an overdose that she had indicated was not intentional. Home psychotropic medications included Pristiq 50 mg a day. She was admitted due to increasing problems with anxiety and depression. MENTAL STATUS EXAM: The patient was lying in bed. She had been advised to stay in bed for 24 hours due to a diagnosis of deep vein thrombosis in her left leg, which was diagnosed on admission. She gave fair eye contact at best. Psychomotor activity was slowed. She spoke in a very soft airy voice; at times it was difficult to even hear what she was saying. Mostly she would have quite a latency before she would respond to questions. She might get one or two words out for some questions though not respond to others. She had an anxious intense affect. Mood was depressed. She was significantly distressed. She was tearful throughout the interview. It was difficult to assess for thought disorder or thoughts of harm. On cognitive exam she was able to say it was August and that the year was 2021. She was also able to say the president was Karly. COURSE OF HOSPITALIZATION: The patient was admitted for comprehensive medical, psychiatric and psychosocial evaluation. Due to her significant problems in communication and function, it was felt that at least some of the issues she was dealing with may have related to thought disorder. She was started on Zyprexa 5 mg twice a day. She continued to remain in bed as per direction from medical consultation due to her deep vein thrombosis. She was subsequently diagnosed with bilateral pulmonary embolism. In discussions with Dr. Geronimo, the plan was to transfer the patient to the medical floor. CONDITION AT DISCHARGE: The patient was unchanged from a psychiatric standpoint. She had significant general health issues with bilateral pulmonary embolism and left leg deep vein thrombosis. RECOMMENDATIONS AND FOLLOWUP: The patient is transferred to the medical floor. MMODL / IJN: [id number] /
== END 2021-09-11 15:15 | disposition short-term general hospital (02) | DRG 885 ==
LOC: EC 12:10 → 3MHU 19:30
PROVIDERS: ADMIT Psychiatry & Neurology Psychiatry; ATTEND Psychiatry & Neurology Psychiatry
DX: F31.5 Bipolar disorder, current episode depressed, severe, with psychotic features (principal); I26.99 Other pulmonary embolism without acute cor pulmonale; R45.851 Suicidal ideations; I82.402 Acute embolism and thrombosis of unspecified deep veins of left lower extremity; G40.909 Epilepsy, unspecified, not intractable, without status epilepticus; E78.5 Hyperlipidemia, unspecified; F41.9 Anxiety disorder, unspecified; Z20.822 Contact with and (suspected) exposure to COVID-19; Z91.51 Personal history of suicidal behavior; Z79.82 Long term (current) use of aspirin; Z79.899 Other long term (current) drug therapy; Z86.73 Personal history of transient ischemic attack (TIA), and cerebral infarction without residual deficits; Z85.01 Personal history of malignant neoplasm of esophagus; Z98.891 History of uterine scar from previous surgery; Z90.49 Acquired absence of other specified parts of digestive tract; Z87.19 Personal history of other diseases of the digestive system; Z90.89 Acquired absence of other organs; Z98.51 Tubal ligation status; Z98.84 Bariatric surgery status; Z98.890 Other specified postprocedural states; Z91.013 Allergy to seafood; Z88.8 Allergy status to other drugs, medicaments and biological substances; Z91.018 Allergy to other foods; Z82.49 Family history of ischemic heart disease and other diseases of the circulatory system; Z83.49 Family history of other endocrine, nutritional and metabolic diseases; Z82.69 Family history of other diseases of the musculoskeletal system and connective tissue
CPT/HCPCS: 36415; 71275; 80053; 80061; 80320; 83036; 84443; 84484; 85025; 85027; 85598; 85613; 85730; 85732; 87635; 99285

== ENCOUNTER 2021-09-11 14:58 | Inpatient (IN) | payer MEDICARE, OTHER ==
[2021-09-11] MEDS: SODIUM CHLORIDE 0.9% 1,000 ML IV SCH (16:45)
[2021-09-11] MEDS ORDERED: LORazepam 1 MG TAB PO PRN (16:57)
[2021-09-11] MEDS ORDERED: ACETAMINOPHEN TAB 325 MG TAB PO PRN (17:04)
[2021-09-11] MEDS ORDERED: MAG HYDROX/AL HYDROX/SIMETH 30 ML CUP PO PRN (17:05)
[2021-09-11] MEDS ORDERED: PANTOPRAZOLE 40 MG TABLET PO SCH (17:30)
[2021-09-11] MEDS ORDERED: MAGNESIUM HYDROXIDE 2,400 MG/10 ML CUP PO PRN (18:03)
[2021-09-11] MEDS: APIXABAN 5 MG TAB PO SCH (20:30)
[2021-09-11] MEDS: traMADol 50 MG TAB PO PRN (20:30)
[2021-09-11] MEDS: TOPIRAMATE 25 MG TAB PO SCH (20:31)
[2021-09-11] MEDS: FAMOTIDINE 20 MG TAB PO SCH (20:31)
[2021-09-11] MEDS: ATORVASTATIN 10 MG TAB PO SCH (20:31)
[2021-09-11] MEDS: LACOSAMIDE 50 MG TABLET PO SCH (20:31)
[2021-09-11] MEDS: OLANZapine 5 MG TAB PO SCH (20:45)
[2021-09-12] MEDS: traMADol 50 MG TAB PO PRN ×2 (04:57→14:34)
[2021-09-12] MEDS: SODIUM CHLORIDE 0.9% 1,000 ML IV SCH ×2 (04:58→12:17)
[2021-09-12 07:57] LABS: Basophils % (A) 1 %; Eosinophils # (A) 0.1 k/uL (0-0.7); Eosinophils % (A) 2 %; HCT 41.9 % (34.0-46.0); HGB 12.9 gm/dL (11.4-16.0); Hypochromasia Slight; Lymphocytes # (A) 1.5 k/uL (1.0-4.8); Lymphocytes % (A) 22 %; MCH 30.7 pg (25.0-35.0); MCHC 30.9 g/dL (31.0-37.0); MCV 99.4 fL (80.0-100.0); Mean Platelet Volume 11.3; Monocytes # (A) 0.4 k/uL (0-1.0); Monocytes % (A) 6 %; Neutrophils # (A) 4.8 k/uL (1.3-7.7); Neutrophils % (A) 69 %; Platelet Count 115 k/uL (150-450); RBC 4.22 m/uL (3.80-5.40); RDW 13.8 % (11.5-15.5)
[2021-09-12 08:14] LABS: African American GFR (CKD) >90 (>60 ml/min/1.73 sqM); Anion Gap 9 mmol/L; Blood Urea Nitrogen 13 mg/dL (7-17); Calcium 8.8 mg/dL (8.4-10.2); Carbon Dioxide 20 mmol/L (22-30); Chloride 107 mmol/L (98-107); Glucose 114 mg/dL (74-99); Non-African American GFR(CKD) >90 (>60 ml/min/1.73 sqM); Sodium 136 mmol/L (137-145)
[2021-09-12] MEDS: LACOSAMIDE 50 MG TABLET PO SCH ×2 (08:19→20:08)
[2021-09-12 08:20] LABS: Potassium 3.7 mmol/L (3.5-5.1)
[2021-09-12] MEDS: FAMOTIDINE 20 MG TAB PO SCH ×2 (08:20→20:08)
[2021-09-12] MEDS: TOPIRAMATE 25 MG TAB PO SCH ×2 (08:20→20:08)
[2021-09-12] MEDS: APIXABAN 5 MG TAB PO SCH ×2 (08:20→20:08)
[2021-09-12] MEDS: OLANZapine 5 MG TAB PO SCH ×2 (08:21→20:09)
[2021-09-12] MEDS ORDERED: MELOXICAM 7.5 MG TAB PO SCH (09:00)
[2021-09-12] MEDS ORDERED: DESVENLAFAXINE SUCCINATE 50 MG TAB.ER.24H PO SCH (09:00)
--- NOTE | 2021-09-12 11:28 | ECHOF ---
Referral Reason:LV function MEASUREMENTS -------- HEIGHT: 167.6 cm WEIGHT: 67.6 kg BP: 107/70 RVIDd: 3.3 cm (< 3.3) IVSd: 1.4 cm (0.6 - 1.1) LVIDd: 3.3 cm (3.9 - 5.3) LVPWd: 1.2 cm (0.6 - 1.1) IVSs: 1.8 cm LVIDs: 1.9 cm LVPWs: 1.6 cm Ao Diam: 3.6 cm (2.0 - 3.7) AV Cusp: 2.0 cm (1.5 - 2.6) MV EXCURSION: 18.505 mm (> 18.000) MV EF SLOPE: 48 mm/s (70 - 150) EPSS: 0.1 cm MV E Alfredito: 0.58 m/s MV DecT: 262 ms MV A Alfredito: 0.57 m/s MV E/A Ratio: 1.01 RAP: 5.00 mmHg RVSP: 24.65 mmHg TAPSE: 19.60 mm FINDINGS -------- Sinus rhythm. This was a technically difficult study with suboptimal apical views. The left ventricular size is normal. There is mild concentric left ventricular hypertrophy. Overa ll left ventricular systolic function is normal with, an EF between 55 - 60 %. The right ventricle is mildly enlarged. Normal LA size by volume 22+/-6 ml/m2. The right atrium was not well visualized. 5.0mg of Lumason was utilized for enhancement of images Interatrial and interventricular septum intact. Trace amount of aortic regurgitation. There is no evidence of aortic stenosis. No mitral regurgitation. Mild tricuspid regurgitation present. There is no evidence of pulmonary hypertension. The right v entricular systolic pressure, as measured by Doppler, is 24.65mmHg. There is no pulmonic regurgitation present. The aortic root size is normal. IVC Not well visulized. There is no pericardial effusion. CONCLUSIONS -------- 1. The left ventricular size is normal. 2. There is mild concentric left ventricular hypertrophy. 3. Overall left ventricular systolic function is normal with, an EF between 55 - 60 %. 4. The right ventricle is mildly enlarged. 5. Trace amount of aortic regurgitation. 6. Mild tricuspid regurgitation present. BOTTLING LINE OPERATOR: Kellie Dominguez RDCS
--- NOTE | 2021-09-12 11:38 | P.HPIM ---
History of Present Illness H&P Date: 09/11/21 Patient is a 46-year-old female admitted to psychiatric floor for acute psychosis. Patient I was having swelling in the left leg because of which obtained a Doppler of the left lower x-ray which showed extensive DVT involving the whole leg from groin and probably extending proximally as well because of which I consulted vascular surgery and vascular surgery evaluated the patient. Today patient started having shortness of breath with minimal ablation. Patient is also tachycardic and blood pressure is low normal I did obtain a troponin as today which was within normal limits and CT today was obtained to rule out pulmonary malaise which showed bilateral PE although there is no evidence of ri ght ventricular strain. I'll repeat another troponin and patient will be transferred to regular medical floor because of the tachycardia borderline hypotension although patient looks well. Patient is also getting short of breath with minimal exertion. If her echo shows right ankle strain patient may benefit from EKOS. Patient at this time is hemodynamically stable. REVIEW OF SYSTEMS: CONSTITUTIONAL: No fever, no malaise, no fatigue. HEENT: No recent visual problems or hearing problems. Denied any sore throat. CARDIOVASCULAR: No chest pain, orthopnea, PND, no palpitations, no syncope. PULMONARY: No no cough, no hemoptysis. GASTROINTESTINAL: No diarrhea, no nausea, no vomiting, no abdominal pain. NEUROLOGICAL: No headaches, no weakness, no numbness. HEMATOLOGICAL: Denies any bleeding or petechiae. GENITOURINARY: Denies any burning micturition, frequency, or urgency. MUSCULOSKELETAL/RHEUMATOLOGICAL: As mentioned above ENDOCRINE: Denies any polyuria or polydipsia. The rest of the 14-point review of systems is negative. PHYSICAL EXAMINATION: GENERAL: The patient is alert and oriented x3, not in any acute distress. Well developed, well nourished. HEENT: Pupils are round and equally reacting to light. EOMI. No scleral icterus. No conjunctival pallor. Normocephalic, atraumatic. No pharyngeal erythema. No thyromegaly. CARDIOVASCULAR: S1 and S2 present. No murmurs, rubs, or gallops. PULMONARY: Chest is clear to auscultation, no wheezing or crackles. ABDOMEN: Soft, nontender, nondistended, normoactive bowel sounds. No palpable organomegaly. MUSCULOSKELETAL: No joint swelling or deformity. EXTREMITIES: No cyanosis, clubbing, left lower extremity swelling NEUROLOGICAL: Gross neurological examination did not reveal any focal deficits. SKIN: No rashes. Assessment and plan -Acute bilateral pulmonary embolism: Patient was already started on Eliquis, p atient will be continue on Eliquis patient is being transferred to regular medical floor. Echo will be obtained another set of troponin will be obtained. Patient so far doesn't have any evidence of right ventricular strain. Echo will be obtained and repeat troponins will be obtained. Once transferred to medical floor vascular surgery will be consulted. tachycardia: Secondary to pulmonary embolism -shortness of breath secondary to pulmonary embolism -Extensive DVT of the left lower extremity: Eliquis will be continued -Possibility of seizure disorder for which patient on multiple antiseizure medications which will be continued Acute psychosis and other psychiatric issues: Management as per psychiatry psychiatry will be consulted the floor as well Past Medical History Past Medical History: Cancer, CVA/TIA Additional Past Medical History / Comment(s): pt. states they have had TIA in 2014, 2017, august 30 2019, pseudoseziures, bipolar 1, anxiety. liver, upper intestion, esophageal CA History of Any Multi-Drug Resistant Organisms: None Reported Past Surgical History: Section, Cholecystectomy, Tonsillectomy, Tubal Ligation Additional Past Surgical History / Comment(s): fundaplication, laproscopic scar tissue removal, partial stomach removal surgery R/T CA Past Anesthesia/Blood Transfusion Reactions: No Reported Reaction Past Psychological History: Anxiety, Bipolar, Depression Smoking Status: Never smoker Past Alcohol Use History: Occasional Past Drug Use History: None Reported - Past Family History Mother History Unknown: Yes Family Medical History: Congestive Heart Failure (CHF) Sister(s) History Unknown: Yes Additional Family Medical History / Comment(s): Lupus Brother(s) History Unknown: Yes Additional Family Medical History / Comment(s): cystic fibrosis Medications and Allergies Home Medications Medication Instructions Recorded Confirmed Type EPINEPHrine (Auto Inject) [Epipen] 0.3 mg IM ONCE PRN 06/27/21 09/11/21 History Pantoprazole [Protonix] 40 mg PO BID 06/27/21 09/11/21 History levETIRAcetam [Keppra] 750 mg PO BID 06/27/21 09/11/21 History Topiramate [Topamax] 50 mg PO Q12H 06/28/21 09/11/21 History Aspirin EC [Ecotrin Low Dose] 81 mg PO DAILY 09/09/21 09/11/21 History Atorvastatin Calcium [Lipitor] 10 mg PO HS 09/09/21 09/11/21 History Desvenlafaxine Succinate [Pristiq 50 mg PO DAILY 09/09/21 09/11/21 History ER] Lacosamide [Vimpat] 100 mg PO BID 09/09/21 09/11/21 History Allergies Allergy/AdvReac Type Severity Reaction Status Date / Time duloxetine Allergy Rash/Hives Verified 09/11/21 15:55 gluten Allergy Swelling Verified 09/11/21 15:55 phenytoin [From Dilantin] Allergy Unknown Verified 09/11/21 15:55 shellfish derived [Shellfish] Allergy Anaphylaxis Verified 09/11/21 15:55 Physical Exam Vitals: Vital Signs Temp Pulse Resp BP Pulse Ox 09/12/21 11:19 98.1 F 59 L 20 91/58 96 09/12/21 08:00 97.6 F 87 20 105/69 94 L 09/12/21 04:00 97.9 F 84 16 107/70 94 L 09/12/21 02:00 80 16 09/11/21 23:25 98.7 F 80 16 99/66 98 09/11/21 20:00 94 16 96/60 98 09/11/21 15:35 97.4 F L 110 H 16 130/76 97 Intake and Output 09/11/21 09/12/21 09/12/21 22:59 06:59 14:59 Intake Total 240 Balance 240 Intake: Oral 240 Other: # Voids 1 Weight 68 kg Results CBC & Chem 7: 09/12/21 07:31 09/12/21 07:31 Labs: Abnormal Lab Results - Last 24 Hours (Table) 09/12/21 09/12/21 Range/Units 07:31 07:31 MCHC 30.9 L (31.0-37.0) g/dL Plt Count 115 L (150-450) k/uL Sodium 136 L (137-145) mmol/L Carbon Dioxide 20 L (22-30) mmol/L Glucose 114 H (74-99) mg/dL Thrombosis Risk Factor Assmnt - Choose All That Apply Each Factor Represents 1 point: Age 41-60 years, Obesity (BMI >25) Thrombosis Risk Factor Assessment Total Risk Factor Score: 2 Thrombosis Risk Factor Assessment Level: Low Risk
--- NOTE | 2021-09-12 13:57 | P.GSCN ---
History of Present Illness Consult date: 09/12/21 Reason for Consult: DVT, PE Requesting physician: Bert Geronimo History of present illness: This is a 46-year-old female who initially came to the emergency room for treatment for mental health. She was initially admitted to the mental health unit and then was complaining of some left lower extremity swelling and pain. Patient was also complaining of some shortness of breath. A venous Doppler ultrasound of the left lower extremity was obtained which was positive for a DVT from the common femoral vein to the proximal calf veins. She also underwent a CT angiogram of the chest. That showed a suboptimal study but bilateral right greater than left upper peripheral pulmonary emboli. With no evidence of RV strain. No suspicious acute pulmonary infiltrate. Vascular surgery was consulted for extensive DVT. Patient was initially started on a heparin drip and his artery been transitioned to Eliquis 10 mg twice a day. Today she seen and examined lying in bed. She has a very flat affect. She states lower extremity pain has improved, however still photographer with palpation. She does have a MARCELL hose in place. She currently denies any shortness of breath or chest pain. She does not appear in any distress, oxygen level has been 94-98% on room air. Troponin was negative. Review of Systems A 14 point review of systems was completed all pertinent positives and negatives as stated in the HPI Past Medical History Past Medical History: Cancer, CVA/TIA Additional Past Medical History / Comment(s): pt. states they have had TIA in 2014, 2017, august 30 2019, pseudoseziures, bipolar 1, anxiety. liver, upper intestion, esophageal CA History of Any Multi-Drug Resistant Organisms: None Reported Past Surgical History: Section, Cholecystectomy, Tonsillectomy, Tubal Ligation Additional Past Surgical History / Comment(s): fundaplication, laproscopic scar tissue removal, partial stomach removal surgery R/T CA Past Anesthesia/Blood Transfusion Reactions: No Reported Reaction Past Psychological History: Anxiety, Bipolar, Depression Smoking Status: Never smoker Past Alcohol Use History: Occasional Past Drug Use History: None Reported - Past Family History Mother History Unknown: Yes Family Medical History: Congestive Heart Failure (CHF) Sister(s) History Unknown: Yes Additional Family Medical History / Comment(s): Lupus Brother(s) History Unknown: Yes Additional Family Medical History / Comment(s): cystic fibrosis Medications and Allergies Home Medications Medication Instructions Recorded Confirmed Type EPINEPHrine (Auto Inject) [Epipen] 0.3 mg IM ONCE PRN 06/27/21 09/11/21 History Pantoprazole [Protonix] 40 mg PO BID 06/27/21 09/11/21 History levETIRAcetam [Keppra] 750 mg PO BID 06/27/21 09/11/21 History Topiramate [Topamax] 50 mg PO Q12H 06/28/21 09/11/21 History Aspirin EC [Ecotrin Low Dose] 81 mg PO DAILY 09/09/21 09/11/21 History Atorvastatin Calcium [Lipitor] 10 mg PO HS 09/09/21 09/11/21 History Desvenlafaxine Succinate [Pristiq 50 mg PO DAILY 09/09/21 09/11/21 History ER] Lacosamide [Vimpat] 100 mg PO BID 09/09/21 09/11/21 History Acetaminophen Tab [Tylenol] 650 mg PO Q4HR PRN tab 09/12/21 Rx Apixaban [Eliquis] 10 mg PO BID tab 09/12/21 Rx Famotidine [Pepcid] 20 mg PO BID tab 09/12/21 Rx LORazepam [Ativan] 1 mg PO TID PRN tab 09/12/21 Rx Mag Hydrox/Al Hydrox/Simeth 30 ml PO Q4HR PRN ml 09/12/21 Rx [Maalox] Magnesium Hydroxide [Milk of 2,400 mg PO DAILY PRN ml 09/12/21 Rx Magnesia Concentrate] Meloxicam [Mobic] 15 mg PO DAILY tab 09/12/21 Rx OLANZapine [ZyPREXA] 5 mg PO BID tab 09/12/21 Rx traMADol HCl [Ultram] 50 mg PO QID PRN tab 09/12/21 Rx Allergies Allergy/AdvReac Type Severity Reaction Status Date / Time duloxetine Allergy Rash/Hives Verified 09/11/21 15:55 gluten Allergy Swelling Verified 09/11/21 15:55 phenytoin [From Dilantin] Allergy Unknown Verified 09/11/21 15:55 shellfish derived [Shellfish] Allergy Anaphylaxis Verified 09/11/21 15:55 Surgical - Exam Vital Signs Temp Pulse Resp BP Pulse Ox 97.4 F L 110 H 16 130/76 97 09/11/21 15:35 09/11/21 15:35 09/11/21 15:35 09/11/21 15:35 09/11/21 15:35 General appearance: The patient is alert, oriented, appears in no acute distress. HET: Head is normocephalic and atraumatic. Pupils are equal and reactive. Neck: Supple without lymphadenopathy. Trachea midline. Heart: S1 S2. Regular rate and rhythm. Lungs: Clear to auscultation bilaterally. Abdomen: Soft, nontender, nondistended. Extremities: Normal skin color and turgor. No cyanosis, rash, ulceration, clubbing, or edema. Radial and pedal pulses are 2/4 bilaterally. Left lower extremity Tender to Palpation, Compression Stocking in Place up to the Thigh. Neurological: No focal deficits. Strength and sensation are grossly intact. Results - Labs 09/12/21 07:31 09/12/21 07:31 Abnormal Lab Results - Last 24 Hours (Table) 09/12/21 09/12/21 Range/Units 07:31 07:31 MCHC 30.9 L (31.0-37.0) g/dL Plt Count 115 L (150-450) k/uL Sodium 136 L (137-145) mmol/L Carbon Dioxide 20 L (22-30) mmol/L Glucose 114 H (74-99) mg/dL Diabetes panel 09/12/21 Range/Units 07:31 Sodium 136 L (137-145) mmol/L Potassium 3.7 (3.5-5.1) mmol/L Chloride 107 (98-107) mmol/L Carbon Dioxide 20 L (22-30) mmol/L BUN 13 (7-17) mg/dL Creatinine 0.55 (0.52-1.04) mg/dL Glucose 114 H (74-99) mg/dL Calcium 8.8 (8.4-10.2) mg/dL Calcium panel 09/12/21 Range/Units 07:31 Calcium 8.8 (8.4-10.2) mg/dL Pituitary panel 09/12/21 Range/Units 07:31 Sodium 136 L (137-145) mmol/L Potassium 3.7 (3.5-5.1) mmol/L Chloride 107 (98-107) mmol/L Carbon Dioxide 20 L (22-30) mmol/L BUN 13 (7-17) mg/dL Creatinine 0.55 (0.52-1.04) mg/dL Glucose 114 H (74-99) mg/dL Calcium 8.8 (8.4-10.2) mg/dL Adrenal panel 09/12/21 Range/Units 07:31 Sodium 136 L (137-145) mmol/L Potassium 3.7 (3.5-5.1) mmol/L Chloride 107 (98-107) mmol/L Carbon Dioxide 20 L (22-30) mmol/L BUN 13 (7-17) mg/dL Creatinine 0.55 (0.52-1.04) mg/dL Glucose 114 H (74-99) mg/dL Calcium 8.8 (8.4-10.2) mg/dL - Imaging Comments: As Stated in HPI Echocardiogram mild concentric left ventricular hypertrophy, EF between 5560%, right ventricle mildly enlarged. Right ventricular systolic pressure 24.65 mmHg, trace amount of aortic regurgitation, mild tricuspid regurgitation CT scan - chest: report reviewed Assessment and Plan Assessment: 1. Bilateral pulmonary emboli, no evidence of right heart strain 2. Left lower extremity DVT 3. Conversion disorder Plan: 1. Continue Eliquis 10 mg twice a day 7 days then 5 mg twice a day. Patient may be candidate for lifelong anticoagulation as there is unprovoked DVT and PE 2. Recommend outpatient hematology workup for unprovoked DVT/PE 3. There is no indication for any vascular surgical intervention at this time 4. Patient is stable from a vascular surgical standpoint to be transferred to the mental health unit. Patient may follow up outpatient in 2 weeks. Thank you for this consultation and allowing us take part in the plan of care of your patient during her hospital stay. The impression and plan of care has been dictated as directed. Dr. Ansari I performed a history and examination of this patient, discussed the same with the dictator. I agree with the dictator's note ,documented as a scribe. Any additional findings or plans will be noted.
--- NOTE | 2021-09-12 14:28 | P.DS ---
Providers Date of admission: 09/11/21 15:22 Expected date of discharge: 09/12/21 Attending physician: Adalberto Carney MD Consults: 09/11/21 16:49 Consult Physician Routine Consulting Provider: [place] [place] Consult Reason/Comments: DVT Do you want consulting provider notified?: Yes Placement Type Exists?: Yes 09/11/21 17:06 Consult Physician Routine Consulting Provider: Psychiatry - [facility] Psychiatry Consult Reason/Comments: Conversion disorder ,came from mental health/management Do you want consulting provider notified?: Yes Placement Type Exists?: Yes Primary care physician: Adalberto Carney MD Hospital Course: Final Diagnoses: -Acute bilateral pulmonary embolism,right greater than left upper peripheral pulmonary emboli, with no evidence of RV strain-reported per CTA. No suspicious acute pulmonary infiltrate. Echo reported EF between 55-60%, right ventricle mildly enlarged. Right ventricular systolic pressure 24.65 mmHg. Repeat troponin ordered, pending. Cleared by vascular surgery. -Extensive DVT of the left lower extremity,from the common femoral vein to the proximal calf veins -Conversion disorder, for months falsified diagnosis of cancer to her family and healthcare workers, proceeded to the extent of having her mother transport and drop her off at a [facility],shaving her head to show chemo.effects, etc. -Major depression; bipolar disorder -Acute psychosis -History of psychogenic seizures, history of breakthrough seizures, noncompliant with medication. -Generalized anxiety disorder Hospital course: This a 46-year-old female initially admitted to mental health unit for acute psychosis. Patient developed shortness of breath, left lower leg edema, radiology studies reported extensive DVT of the left lower extremity along with acute bilateral pulmonary embolism. Initially anticoagulated on a heparin drip, transitioned to Eliquis. Radiology studies evaluated by vascular surgery and patient has been cleared for transfer back to mental health unit. Maintaining O2 sats in the high 90s on room air. Maintaining a mean arterial pressure of 69-82. Initial troponin negative, repeat pending. Denies chest pain, palpitations or shortness of breath. Significant clinical improvement. Patient will be discharged to inpatient mental health unit, in stable condition with guarded prognosis. The impression and plan of care has been dictated as directed. : I performed a history and examination of this patient, discussed the same with the dictator. I agree with the dictator's note ,documented as a scribe. Any additional findings or plans will be noted. Patient Condition at Discharge: Stable Plan - Discharge Summary Discharge Rx Participant: Yes New Discharge Prescriptions: New LORazepam [Ativan] 1 mg PO TID PRN tab PRN Reason: Agitation Apixaban [Eliquis] 10 mg PO BID tab Magnesium Hydroxide [Milk of Magnesia Concentrate] 2,400 mg PO DAILY PRN ml PRN Reason: Constipation Meloxicam [Mobic] 15 mg PO DAILY tab Acetaminophen Tab [Tylenol] 650 mg PO Q4HR PRN tab PRN Reason: Fever And/ Or Pain OLANZapine [ZyPREXA] 5 mg PO BID tab Mag Hydrox/Al Hydrox/Simeth [Maalox] 30 ml PO Q4HR PRN ml PRN Reason: Gi Upset Famotidine [Pepcid] 20 mg PO BID tab traMADol HCl [Ultram] 50 mg PO QID PRN tab PRN Reason: Pain Continue Pantoprazole [Protonix] 40 mg PO BID EPINEPHrine (Auto Inject) [Epipen] 0.3 mg IM ONCE PRN PRN Reason: Anaphylaxis levETIRAcetam [Keppra] 750 mg PO BID Topiramate [Topamax] 50 mg PO Q12H Lacosamide [Vimpat] 100 mg PO BID Desvenlafaxine Succinate [Pristiq ER] 50 mg PO DAILY Atorvastatin Calcium [Lipitor] 10 mg PO HS Aspirin EC [Ecotrin Low Dose] 81 mg PO DAILY Discharge Medication List EPINEPHrine (Auto Inject) [Epipen] 0.3 mg IM ONCE PRN 06/27/21 [History] Pantoprazole [Protonix] 40 mg PO BID 06/27/21 [History] levETIRAcetam [Keppra] 750 mg PO BID 06/27/21 [History] Topiramate [Topamax] 50 mg PO Q12H 06/28/21 [History] Aspirin EC [Ecotrin Low Dose] 81 mg PO DAILY 09/09/21 [History] Atorvastatin Calcium [Lipitor] 10 mg PO HS 09/09/21 [History] Desvenlafaxine Succinate [Pristiq ER] 50 mg PO DAILY 09/09/21 [History] Lacosamide [Vimpat] 100 mg PO BID 09/09/21 [History] Acetaminophen Tab [Tylenol] 650 mg PO Q4HR PRN tab 09/12/21 [Rx] Apixaban [Eliquis] 10 mg PO BID tab 09/12/21 [Rx] Famotidine [Pepcid] 20 mg PO BID tab 09/12/21 [Rx] LORazepam [Ativan] 1 mg PO TID PRN tab 09/12/21 [Rx] Mag Hydrox/Al Hydrox/Simeth [Maalox] 30 ml PO Q4HR PRN ml 09/12/21 [Rx] Magnesium Hydroxide [Milk of Magnesia Concentrate] 2,400 mg PO DAILY PRN ml 09/12/21 [Rx] Meloxicam [Mobic] 15 mg PO DAILY tab 09/12/21 [Rx] OLANZapine [ZyPREXA] 5 mg PO BID tab 09/12/21 [Rx] traMADol HCl [Ultram] 50 mg PO QID PRN tab 09/12/21 [Rx] Activity/Diet/Wound Care/Special Instructions: OP Hematology follow-up recommended at discharge as per vascular surgery. Discharge Disposition: TRANSFER TO PSYCH HOSP/UNIT
[2021-09-12 20:01] VITALS: BP 92/62; PULSE 67; RESP 16; TEMP 98
[2021-09-12] MEDS: ATORVASTATIN 10 MG TAB PO SCH (20:09)
--- NOTE | 2021-09-12 21:36 | CONS ---
CONSULTATION DATE OF SERVICE: 09/12/2021 PURPOSE FOR CONSULTATION: Evaluate for mood disorder. HISTORY OF PRESENTING ILLNESS: The patient is a 46-year-old female. She had been admitted to the psychiatric unit for anxiety and depression issues. She was transferred to the medical floor due to diagnoses of bilateral pulmonary embolism and DVT. From a psychiatric standpoint, she was felt to have likely psychotic symptoms as part of her psychiatric difficulties. It is noted that the patient was felt to have a diagnosis of depression and anxiety as part of her recent psychiatric admission. Beyond that, the patient was not able to provide any significant history in regard to current or past mental health issues. Since coming to the medical floor, she was considered to have conversion disorder with history being obtained that she had falsified diagnosis of cancer to her family and health care workers, which proceeded to the extent of having her mother transport and drop [facility] off [facility] apparently after having shaved her head to show effects of chemotherapy which had in fact not occurred. During her medical admission it was also noted that she was diagnosed with a history of psychogenic seizures, a history of breakthrough seizures and noncompliance with medication. When the patient was on the psychiatric unit prior to the transfer, she was started on Zyprexa 5 mg twice a day. Currently her psychotropic medications include Zyprexa 5 mg twice a day. In addition, she has psychoactive medications, including Ativan 1 mg 3 times a day p.r.n. for agitation, Topamax 50 mg q.12 hours, tramadol 50 mg q.i.d. p.r.n., Keppra 750 mg twice a day, and Vimpat 100 mg twice a day. When I saw the patient, my understanding was that when she was medically cleared there would be consideration for her to return to the psychiatric unit. In talking to the patient, it was noted that she was a little more conversant than when she initially was on the psychiatric unit. There was not a great difference between her presentations then and now. On the other hand, the patient was able to talk in a somewhat stronger voice though still fairly quiet. She was able to answer questions a little more directly, though still would only gave fairly limited information. Overall she seemed to be a little more engaged in the conversation. When I asked basic cognitive questions, she was able to tell maybe it was September. She said she thought it was the . She hesitated when I asked the day of the week, and then said Sunday. When I said it was after the weekend, she then said Sunday. She was able to say the year was 2021. She stated she was in the hospital. She knew the president was Karly. ASSESSMENT: This 46-year-old female is diagnosed with anxiety and depression issues with likely underlying psychosis. Issues of conversion disorder also may well be connected to thoughts of unreality. My recommendation is to continue Zyprexa 5 mg twice a day. She would be appropriate for readmission to the psychiatric unit when she is medically stable. MMODL / IJN: [id number] /
== END 2021-09-12 22:59 | DRG 880 ==
LOC: 3SCARD 15:22
PROVIDERS: ADMIT Family Medicine; ATTEND Family Medicine
DX: F44.9 Dissociative and conversion disorder, unspecified (principal); I26.99 Other pulmonary embolism without acute cor pulmonale; I82.412 Acute embolism and thrombosis of left femoral vein; K90.41 Non-celiac gluten sensitivity; I82.4Y2 Acute embolism and thrombosis of unspecified deep veins of left proximal lower extremity; I08.2 Rheumatic disorders of both aortic and tricuspid valves; F31.9 Bipolar disorder, unspecified; F29 Unspecified psychosis not due to a substance or known physiological condition; F41.1 Generalized anxiety disorder; Z79.01 Long term (current) use of anticoagulants; Z79.1 Long term (current) use of non-steroidal anti-inflammatories (NSAID); Z79.82 Long term (current) use of aspirin; Z79.899 Other long term (current) drug therapy; Z82.49 Family history of ischemic heart disease and other diseases of the circulatory system; Z85.01 Personal history of malignant neoplasm of esophagus; Z86.73 Personal history of transient ischemic attack (TIA), and cerebral infarction without residual deficits; Z91.14 Patient's other noncompliance with medication regimen; Z88.8 Allergy status to other drugs, medicaments and biological substances; Z91.013 Allergy to seafood; Z90.49 Acquired absence of other specified parts of digestive tract
CPT/HCPCS: 80048; 84484; 85025; 93306

== ENCOUNTER 2021-09-12 19:44 | Inpatient (IN) | payer MEDICARE, MEDICAID ==
[2021-09-12] MEDS ORDERED: MAG HYDROX/AL HYDROX/SIMETH 30 ML CUP PO PRN (20:42)
[2021-09-12] MEDS ORDERED: traMADol 50 MG TAB PO PRN (20:42)
[2021-09-12] MEDS ORDERED: MAGNESIUM HYDROXIDE 2,400 MG/10 ML CUP PO PRN (20:42)
[2021-09-12] MEDS ORDERED: LORazepam 1 MG TAB PO PRN (20:47)
[2021-09-12] MEDS ORDERED: LORazepam 2 MG/ML INJ IM PRN (20:48)
[2021-09-13] MEDS: MELOXICAM 7.5 MG TAB PO SCH (08:07)
[2021-09-13] MEDS: TOPIRAMATE 25 MG TAB PO SCH ×2 (08:09→21:04)
[2021-09-13] MEDS: LACOSAMIDE 50 MG TABLET PO SCH ×2 (08:09→21:05)
[2021-09-13] MEDS: PANTOPRAZOLE 40 MG TABLET PO SCH ×2 (08:09→21:04)
[2021-09-13] MEDS: APIXABAN 5 MG TAB PO SCH ×2 (08:09→21:04)
[2021-09-13] MEDS: ASPIRIN 81 MG PO SCH (08:09)
[2021-09-13] MEDS: FAMOTIDINE 20 MG TAB PO SCH ×2 (08:10→21:04)
[2021-09-13] MEDS ORDERED: OLANZapine 5 MG TAB PO SCH (09:00)
--- NOTE | 2021-09-13 09:57 | P.HPIM ---
History of Present Illness H&P Date: 09/13/21 Chief Complaint: Anxiety, depression This is a 46-year-old female initially admitted to mental health unit for acute psychosis, diagnosed with extensive DVT of the left lower extremity along with acute bilateral pulmonary embolism. Transferred to medical floor, anticoagulated initially with a heparin drip, transitioned to Eliquis, evaluated and cleared by vascular surgery and transferred back to the mental health unit. Please refer to EHR for further details. Radiology studies evaluated by vascular surgery and patient has been cleared for return back to mental health unit. Vital signs stable, maintaining O2 sats in the high 90s on room air. Denies chest pain, palpitations or increased shortness of breath. Denies nausea vomiting or abdominal pain.Denies pain of the left lower extremity. Review of Systems Constitutional: Reports positive fatigue, Denied any fever. Cardio vascular: denied any chest pain, palpitations Gastrointestinal denied any nausea vomiting Pulmonary: Denied any shortness of breath cough Neurologic denied any new focal deficits ROS Statement: Those systems with pertinent positive or pertinent negative responses have been documented in the HPI. ROS Other: All systems not noted in ROS Statement are negative. Past Medical History Past Medical History: Cancer, CVA/TIA Additional Past Medical History / Comment(s): pt. states they have had TIA in 2014, 2017, august 30 2019, pseudoseziures, bipolar 1, anxiety. liver, upper intestion, esophageal CA History of Any Multi-Drug Resistant Organisms: None Reported Past Surgical History: Section, Cholecystectomy, Tonsillectomy, Tubal Ligation Additional Past Surgical History / Comment(s): fundaplication, laproscopic scar tissue removal, partial stomach removal surgery R/T CA Past Anesthesia/Blood Transfusion Reactions: No Reported Reaction Past Psychological History: Anxiety, Bipolar, Depression Smoking Status: Never smoker Past Alcohol Use History: Occasional Past Drug Use History: None Reported - Past Family History Mother History Unknown: Yes Family Medical History: Congestive Heart Failure (CHF) Sister(s) History Unknown: Yes Additional Family Medical History / Comment(s): Lupus Brother(s) History Unknown: Yes Family Medical History: Deep Vein Thrombosis (DVT) Additional Family Medical History / Comment(s): cystic fibrosis,recent bilateral DVT Medications and Allergies Home Medications Medication Instructions Recorded Confirmed Type EPINEPHrine (Auto Inject) [Epipen] 0.3 mg IM ONCE PRN 06/27/21 09/12/21 History Pantoprazole [Protonix] 40 mg PO BID 06/27/21 09/12/21 History levETIRAcetam [Keppra] 750 mg PO BID 06/27/21 09/12/21 History Topiramate [Topamax] 50 mg PO Q12H 06/28/21 09/12/21 History Aspirin EC [Ecotrin Low Dose] 81 mg PO DAILY 09/09/21 09/12/21 History Atorvastatin Calcium [Lipitor] 10 mg PO HS 09/09/21 09/12/21 History Desvenlafaxine Succinate [Pristiq 50 mg PO DAILY 09/09/21 09/12/21 History ER] Lacosamide [Vimpat] 100 mg PO BID 09/09/21 09/12/21 History Acetaminophen Tab [Tylenol] 650 mg PO Q4HR PRN tab 09/12/21 09/12/21 Rx Apixaban [Eliquis] 10 mg PO BID tab 09/12/21 09/12/21 Rx Famotidine [Pepcid] 20 mg PO BID tab 09/12/21 09/12/21 Rx LORazepam [Ativan] 1 mg PO TID PRN tab 09/12/21 09/12/21 Rx Mag Hydrox/Al Hydrox/Simeth 30 ml PO Q4HR PRN ml 09/12/21 09/12/21 Rx [Maalox] Magnesium Hydroxide [Milk of 2,400 mg PO DAILY PRN ml 09/12/21 09/12/21 Rx Magnesia Concentrate] Meloxicam [Mobic] 15 mg PO DAILY tab 09/12/21 09/12/21 Rx OLANZapine [ZyPREXA] 5 mg PO BID tab 09/12/21 09/12/21 Rx traMADol HCl [Ultram] 50 mg PO QID PRN tab 09/12/21 09/12/21 Rx Allergies Allergy/AdvReac Type Severity Reaction Status Date / Time duloxetine Allergy Rash/Hives Verified 09/12/21 22:10 gluten Allergy Swelling Verified 09/12/21 22:10 phenytoin [From Dilantin] Allergy Unknown Verified 09/12/21 22:10 shellfish derived [Shellfish] Allergy Anaphylaxis Verified 09/12/21 22:10 Physical Exam Vitals: Vital Signs Temp Pulse Resp BP Pulse Ox 09/13/21 08:26 68 20 116/74 09/13/21 07:02 97.5 F L 92 118/74 96 09/12/21 20:35 97.0 F L 85 18 110/75 Intake and Output 09/12/21 09/13/21 09/13/21 22:59 06:59 14:59 Other: Weight 68 kg PHYSICAL EXAMINATION: GENERAL: The patient is alert and oriented x3, not in any acute distress. Well developed, well nourished.Quiet voice, reserved. HEENT: Pupils are round and equally reacting to light. EOMI. No scleral icterus. No conjunctival pallor. Normocephalic, atraumatic. No pharyngeal erythema. No thyromegaly. CARDIOVASCULAR: S1 and S2 present. No murmurs, rubs, or gallops. PULMONARY: Respiratory effort nonlabored.Chest is clear to auscultation, no wheezing or crackles. ABDOMEN: Soft, nontender, nondistended, normoactive bowel sounds. No palpable organomegaly. EXTREMITIES: No cyanosis, clubbing, left lower extremity decreasing edema NEUROLOGICAL: Gross neurological examination did not reveal any focal deficits. SKIN: No rashes. Thrombosis Risk Factor Assmnt - Choose All That Apply Each Factor Represents 1 point: Swollen legs (current) Other Risk Factors: Yes Each Risk Factor Represents 3 Points: History of DVT/PE Other congenital or acquired thrombophilia - If yes, enter type in comment: No Thrombosis Risk Factor Assessment Total Risk Factor Score: 4 Thrombosis Risk Factor Assessment Level: Moderate Risk Assessment and Plan Assessment: -Acute bilateral pulmonary embolism,right greater than left upper peripheral pulmonary emboli, with no evidence of RV strain-reported per CTA. No suspicious acute pulmonary infiltrate. Echo reported EF between 55-60%, right ventricle mildly enlarged. Right ventricular systolic pressure 24.65 mmHg. -Extensive DVT of the left lower extremity,from the common femoral vein to the proximal calf veins -Conversion disorder, for months falsified diagnosis of cancer to her family and healthcare workers, proceeded to the extent of having her mother transport and drop her off at a [facility],shaving her head to show chemo.effects, etc. -Major depression; bipolar disorder -Generalized anxiety disorder -Acute psychosis -History of psychogenic seizures, history of breakthrough seizures, noncompliant with medication. Plan: Continue on current medication regime ,monitoring and symptomatic treatme nt. Maintain Eliquis for anticoagulation. Home meds have been reviewed and resumed. GI prophylaxis with PPI in place. Increase ambulation as tolerated. Thank you for the consult. Please do not hesitate to call with any concerns. The impression and plan of care has been dictated as directed. : I performed a history and examination of this patient, discussed the same with the dictator. I agree with the dictator's note ,documented as a scribe. Any additional findings or plans will be noted.
[2021-09-13] MEDS: LITHIUM CARBONATE 300 MG CAP PO SCH ×2 (14:31→21:09)
--- NOTE | 2021-09-13 14:39 | P.HP ---
Psychiatric H&P - . H&P Date: 09/13/21 History & Physical: Allergies Allergy/AdvReac Type Severity Reaction Status Date / Time duloxetine Allergy Rash/Hives Verified 09/12/21 22:10 gluten Allergy Swelling Verified 09/12/21 22:10 phenytoin [From Dilantin] Allergy Unknown Verified 09/12/21 22:10 shellfish derived [Shellfish] Allergy Anaphylaxis Verified 09/12/21 22:10 Vital Signs Temp 97.5 F L 09/13/21 07:02 Pulse 68 09/13/21 08:26 Resp 20 09/13/21 08:26 BP 116/74 09/13/21 08:26 Pulse Ox 96 09/13/21 07:02 Intake & Output 09/12/21 09/13/21 09/13/21 18:59 06:59 18:59 Weight 68 kg 09/13/21 14:01 IDENTIFYING DATA: This patient is a 45-year-old female who currently lives with her fianc and 1 son in a house. She has 3 kids total. HISTORY OF PRESENT ILLNESS: The patient presented to the hospital as a referral from her PCP Dr. Carney. Patient had apparently recently overdosed on opiates and been in [facility]. Patient was then diagnosed with bilateral pulmonary embolisms and DVTs and admitted to the medical floors. Patient was seen for psychiatric consultation for depression and anxiety along with bizarre behaviors at home. The thought initially was that patient was displaying conversion disorder as she was falsifying a diagnosis of cancer and even went as far as having her family drop her off at the cancer Center and she apparently she thrown had been pretended that she was getting chemotherapy. Patient was seen during group today and agreeable to speak to real estate underwriter. She appeared to be fairly constricted and had her head slouched over and was sitting in a wheelchair. She was tearful while talking with real estate underwriter and states that "I had a mental breakdown". She states that she "lost it" and was tearful. She states that this occurred about 2 weeks ago. She states that she "made up a lot of li es". She claims that she told her family that she had cancer and she also lied to her doctor as well. She states that she did not do it for pain medications or other gains but simply for "attention". She states that usually her bipolar medications do help her however she has been having mood swings. She was perseverating on "mentally ill". She was agreeable to be started back on medications today. She states that her sleep has been poor approximately 1-2 hours a night. At this time patient denies any homical ideations, intent or plan. Patient did state that she does have suicidal thoughts however no intent or plan. Patient denies any auditory, visual hallucinations and denies any paranoia or delusions. Patients admits to using no recreational drugs or cigarettes PAST PSYCHIATRIC HISTORY: Patient has a a history of bipolar depression and anxiety. Patient also has a history of psychogenic seizures. Patient was previously on Pristiq, Xanax, Abilify, BuSpar, trazodone and Zoloft. Patient was last psychiatrically hospitalized in December 2019 however was seen on the medical floors several months ago by real estate underwriter for psychiatric consultation. Patient apparently follows up at [facility] with her therapist and also sees her primary care physician for her medications. She claims in 2014 she overdosed on pills as a suicide attempt. Past Medical History: Cancer, CVA/TIA Additional Past Medical History / Comment(s): pt. states they have had TIA in 2014, 2017, august 30 2019, pseudoseziures, bipolar 1, anxiety. liver, upper intestion ALLERGIES: as per EMR. CHEMICAL DEPENDENCY HISTORY: as per HPI FAMILY PSYCHIATRIC/SUBSTANCE USE HISTORY: She claims that her father and sister both have bipolar disorder SOCIAL HISTORY: Patient was born and raised in [place]. She states that she also was raised in [place]. She claims that she completed up to the ninth grade of school. She states that she worked at a [employer] however is now unemployed. She states that she has a fianc and has 3 kids and lives with her son. They live in a house. She denies any legal history. MENTAL STATUS EXAM: General Appearance: Patient is alert, directable, and attempts to be cooperative. She is cooperative however is tearful during the interview. Patient appears to have fair hygiene and grooming wearing hospital gown with fair eye contact. Sitting in a wheelchair. Behavior: Patient is calmly sitting in a wheelchair without any agitated behavior. Tearful Speech: Patient's speech is fluent and nonpressured. Soft tone of voice. Mood/Affect: Patient reports their mood is "depressed and anxious", affect is congruent and tearful when speaking Suicidality/Homicidality: Patient denies having any homicidal ideation intent or plan. Admits to suicidal thoughts however no intent or plan. Perceptions: Patient denies any visual hallucinations and denies any auditory hallucinations Though content/process: There is no evidence of any delusional thought content. goal-directed. Memory and concentration: AOX2-3, grossly intact for the purposes of this session. Can spell "WORLD" backwards Judgment and insight: Poor IMPRESSIONS: Bipolar disorder, current episode depressed Generalized anxiety disorder Factitious disorder hx of psychogenic seizures STRENGTHS/WEAKNESSES: strength is that patient is [resilient]. Weakness is that patient [has poor judgment and is impulsive] INTELLECT: [average] PLAN: -Patient is admitted under [voluntary] status to MHU for stabilization of psychiatric symptoms and safety. Patient has signed [adult voluntary form and] [medication consent] and is placed in patient's chart. -Medications : Will start patient on lithium 300 mg twice a day for mood stabilization/suicidal thoughts. Change Zyprexa to 7.5 mg daily at bedtime for mood stabilization/psychosis/insomnia. Added BuSpar 10 mg 3 times a day for anxiety. -Patient was informed of the risks, benefits and side effects of the medication and patient verbally consented to taking the medications. Patient signed med consent form and was placed in chart. -Internal Medicine consult to perform medical evaluation and physical. -NRT - not needed as patient does not smoke. -SW on board for discharge planning. Encourage patient to participate in groups to work on coping skills. 09/13/21 14:39
[2021-09-13] MEDS: busPIRone HCl 10 MG TAB PO SCH ×2 (16:33→21:05)
[2021-09-13] MEDS ORDERED: OLANZapine 7.5 MG TAB PO SCH (21:00)
[2021-09-13] MEDS: ATORVASTATIN 10 MG TAB PO SCH (21:04)
[2021-09-14] MEDS: MELOXICAM 7.5 MG TAB PO SCH (09:00)
[2021-09-14] MEDS: ASPIRIN 81 MG PO SCH (09:01)
[2021-09-14] MEDS: LITHIUM CARBONATE 300 MG CAP PO SCH (09:01)
[2021-09-14] MEDS: TOPIRAMATE 25 MG TAB PO SCH ×2 (09:01→21:21)
[2021-09-14] MEDS: PANTOPRAZOLE 40 MG TABLET PO SCH ×2 (09:01→21:21)
[2021-09-14] MEDS: APIXABAN 5 MG TAB PO SCH ×2 (09:01→21:21)
[2021-09-14] MEDS: FAMOTIDINE 20 MG TAB PO SCH ×2 (09:01→21:21)
[2021-09-14] MEDS: busPIRone HCl 10 MG TAB PO SCH (09:01)
[2021-09-14] MEDS: LACOSAMIDE 50 MG TABLET PO SCH ×2 (09:02→21:27)
--- NOTE | 2021-09-14 11:37 | P.PN ---
Progress Note - Text Progress Note Date: 09/14/21 Interval History: Patient was seen sitting at the side of her bed today and was directable and a greeable to speak with senior technical writer in the office. Patient continues to be tearful at times during conversation. She states that she is feeling "a little bit better". She claims that she is having less mood swings. She states that she had a difficult time sleeping last night and had frequent awakenings. She states that her anxiety has been mildly improving. She claims that she only one to one group this morning however claims that she did not remember what she learned. She states that she continues to have regret and is feeling sad for deceiving and lying to everyone about her cancer diagnosis. At this time patient admits to suicidal ideations however has no intent or plan. she denies any homical ideations, intent or plan. Patient denies any auditory, visual hallucinations and denies any paranoia or delusions. Patient denies any side effects from the medications and has been compliant with meds. Mental Status Exam: General Appearance: Patient is alert, directable, and attempts to be cooperative. She is tearful during the interview. Patient appears to have fair hygiene and grooming wearing hospital gown with poor eye contact. Sitting in a wheelchair. Behavior: Patient is calmly sitting in a wheelchair without any agitated behavior. Tearful Speech: Patient's speech is fluent and nonpressured. Soft tone of voice. Mood/Affect: Patient reports their mood is "depressed" however is improivng mildly, affect is congruent and tearful Suicidality/Homicidality: Patient denies having any homicidal ideation intent or plan. Admits to suicidal thoughts however no intent or plan. Perceptions: Patient denies any visual hallucinations and denies any auditory hallucinations Though content/process: There is no evidence of any delusional thought content. goal-directed. Memory and concentration: AOX2-3, grossly intact for the purposes of this session. Can spell "WORLD" backwards Judgment and insight: Poor, improving midlly IMPRESSIONS: Bipolar disorder, current episode depressed Generalized anxiety disorder Factitious disorder hx of psychogenic seizures Plan: -Patient continues to meet criteria for inpatient psychiatric admission for symptom stabilization and safety. Patient has signed adult voluntary form and medication consent and was placed in patient's chart. -Medications: Increase lithium to 450 mg twice a day for mood stabilization/suicidal thoughts. Increase Zyprexa to 10 mg daily at bedtime for mood stabilization/psychosis/insomnia. Increased BuSpar 15 mg 3 times a day for anxiety. will order lithium level for sunday morning -When necessary Ativan and Haldol for agitation/aggression. -NRT -not needed as patient does not smoke -SW on board for discharge planning. Encouraged the patient to participate in milieu. likely discharge sunday after pt gets her lithium level.
[2021-09-14 14:29] LABS: Appearance,Urine Cloudy (Clear); Bacteria,Urine Few /hpf; Bilirubin,Urine Negative (Negative); Blood,Urine Large (Negative); Budding Yeast,Urine Few /hpf; Color,Urine Yellow; Glucose,Urine (UA) Negative (Negative); Hyaline Casts,Urine 3 /lpf (0-2); Ketones,Urine Negative (Negative); Leukocyte Esterase,Urine Large (Negative); Mucus,Urine Rare /hpf; Nitrite,Urine Negative (Negative); Protein,Urine 1+ (Negative); RBC,Urine 10 /hpf (0-5); Specific Gravity,Urine 1.011 (1.001-1.035); Squamous Epithelial Cell,Urine 8 /hpf (0-4); Urobilinogen,Urine <2.0 mg/dL (<2.0); WBC,Urine 42 /hpf (0-5)
[2021-09-14 15:11] LABS: Basophils % (A) 1 %; Eosinophils # (A) 0.3 k/uL (0-0.7); Eosinophils % (A) 5 %; HCT 39.5 % (34.0-46.0); HGB 12.5 gm/dL (11.4-16.0); Lymphocytes # (A) 1.5 k/uL (1.0-4.8); Lymphocytes % (A) 25 %; MCH 30.7 pg (25.0-35.0); MCHC 31.6 g/dL (31.0-37.0); MCV 97.2 fL (80.0-100.0); Mean Platelet Volume 10.8; Monocytes # (A) 0.4 k/uL (0-1.0); Monocytes % (A) 7 %; Neutrophils # (A) 3.6 k/uL (1.3-7.7); Neutrophils % (A) 61 %; Platelet Count 165 k/uL (150-450); RBC 4.06 m/uL (3.80-5.40); RDW 13.6 % (11.5-15.5); WBC 5.9 k/uL (3.8-10.6)
[2021-09-14 15:37] LABS: ALT 20 U/L (4-34); AST 24 U/L (14-36); African American GFR (CKD) >90 (>60 ml/min/1.73 sqM); Albumin 3.6 g/dL (3.5-5.0); Alkaline Phosphatase 65 U/L (38-126); Anion Gap 13 mmol/L; Blood Urea Nitrogen 9 mg/dL (7-17); Calcium 9.6 mg/dL (8.4-10.2); Carbon Dioxide 16 mmol/L (22-30); Chloride 109 mmol/L (98-107); Glucose 78 mg/dL (74-99); Non-African American GFR(CKD) >90 (>60 ml/min/1.73 sqM); Potassium 3.5 mmol/L (3.5-5.1); Sodium 138 mmol/L (137-145); Total Bilirubin 0.6 mg/dL (0.2-1.3); Total Protein 6.7 g/dL (6.3-8.2)
[2021-09-14] MEDS: ACETAMINOPHEN TAB 325 MG TAB PO PRN (15:45)
[2021-09-14] MEDS: busPIRone HCl 5 MG TAB PO SCH ×2 (15:46→21:20)
[2021-09-14] MEDS ORDERED: cloNIDine HCL 0.1 MG TAB PO PRN (18:51)
[2021-09-14] MEDS ORDERED: LOPERAMIDE 2 MG CAP PO PRN (18:52)
[2021-09-14] MEDS ORDERED: DICYCLOMINE 10 MG CAP PO PRN (18:52)
[2021-09-14] MEDS ORDERED: IBUPROFEN 600 MG TAB PO PRN (18:53)
[2021-09-14] MEDS ORDERED: hydrOXYzine pamoate 25 MG CAP PO PRN (18:54)
[2021-09-14] MEDS: CEPHALEXIN 500 MG CAP PO SCH (21:21)
[2021-09-14] MEDS: ATORVASTATIN 10 MG TAB PO SCH (21:21)
[2021-09-14] MEDS: LITHIUM CARBONATE 150 MG CAP PO SCH (21:21)
[2021-09-14] MEDS: OLANZapine 10 MG TAB PO SCH (21:21)
[2021-09-15] MEDS: busPIRone HCl 5 MG TAB PO SCH ×3 (09:30→21:36)
[2021-09-15] MEDS: MELOXICAM 7.5 MG TAB PO SCH (09:30)
[2021-09-15] MEDS: CEPHALEXIN 500 MG CAP PO SCH ×2 (09:30→21:35)
[2021-09-15] MEDS: FAMOTIDINE 20 MG TAB PO SCH ×2 (09:30→21:35)
[2021-09-15] MEDS: PANTOPRAZOLE 40 MG TABLET PO SCH ×2 (09:30→21:36)
[2021-09-15] MEDS: TOPIRAMATE 25 MG TAB PO SCH ×2 (09:30→21:37)
[2021-09-15] MEDS: LITHIUM CARBONATE 150 MG CAP PO SCH ×2 (09:31→21:35)
[2021-09-15] MEDS: LACOSAMIDE 50 MG TABLET PO SCH ×2 (09:31→21:35)
[2021-09-15] MEDS: APIXABAN 5 MG TAB PO SCH ×2 (09:31→21:34)
[2021-09-15] MEDS: ASPIRIN 81 MG PO SCH (09:31)
--- NOTE | 2021-09-15 12:08 | P.PN ---
Progress Note - Text Progress Note Date: 09/15/21 Interval History: Patient was seen lying in her bed today and was agreeable to speak to typewriter assembler. She was not tearful today during discussion. He continues to have a fairly constricted affect. She claims that she is no longer feeling suicidal today. She states that she feels a bit better with her medications including her mood and also her anxiety. She states that she feels remorse for what she has done and the lies that she is told to other people. She appears to have improvement in her insight today. She claims that she slept a bit better however still states that it "on and off". She claims that she did go to some groups. She is denying any current suicidal ideations intent or plan. she denies any homical ideations, intent or plan. Patient denies any auditory, visual hallucinations and denies any paranoia or delusions. Patient denies any side effects from the medications and has been compliant with meds. Mental Status Exam: General Appearance: Patient is alert, directable, and attempts to be cooperative, proving mildly. Not tearful today. Patient appears to have fair hygiene and grooming wearing hospital gown with improving eye contact. Behavior: Patient is calmly sitting in a wheelchair without any agitated behavior. More cooperative today Speech: Patient's speech is fluent and nonpressured. Soft tone of voice, proving mildly Mood/Affect: Patient reports their mood is "better" however is improivng mildly, affect is congruent Suicidality/Homicidality: Patient denies having any homicidal ideation intent or plan. Denies any suicidal thoughts, no intent or plan. Perceptions: Patient denies any visual hallucinations and denies any auditory hallucinations Though content/process: There is no evidence of any delusional thought content. goal-directed. Memory and concentration: AOX2-3, grossly intact for the purposes of this session. Judgment and insight: improving midlly IMPRESSIONS: Bipolar disorder, current episode depressed Generalized anxiety disorder Factitious disorder hx of psychogenic seizures Plan: -Patient continues to meet criteria for inpatient psychiatric admission for symptom stabilization and safety. Patient has signed adult voluntary form and medication consent and was placed in patient's chart. -Medications: lithium to 450 mg twice a day for mood stabilization/suicidal thoughts. Increase Zyprexa to 15 mg daily at bedtime for mood stabilization/psychosis/insomnia. BuSpar 15 mg 3 times a day for anxiety. Check lithium level for sunday morning -When necessary Ativan and Haldol for agitation/aggression. -NRT -not needed as patient does not smoke -SW on board for discharge planning. Encouraged the patient to participate in milieu. likely discharge tomorrow after patient's lithium levels drawn and checked.
[2021-09-15] MEDS: ATORVASTATIN 10 MG TAB PO SCH (21:34)
[2021-09-15] MEDS: OLANZapine 10 MG TAB PO SCH (21:35)
[2021-09-16] MEDS: ACETAMINOPHEN TAB 325 MG TAB PO PRN (05:46)
[2021-09-16 05:48] VITALS: BP 121/75; PULSE 111; RESP 20; TEMP 97.7
[2021-09-16] MEDS: APIXABAN 5 MG TAB PO SCH (10:02)
[2021-09-16] MEDS: TOPIRAMATE 25 MG TAB PO SCH (10:02)
[2021-09-16] MEDS: MELOXICAM 7.5 MG TAB PO SCH (10:03)
[2021-09-16] MEDS: CEPHALEXIN 500 MG CAP PO SCH (10:03)
[2021-09-16] MEDS: LITHIUM CARBONATE 150 MG CAP PO SCH (10:03)
[2021-09-16] MEDS: busPIRone HCl 5 MG TAB PO SCH (10:04)
[2021-09-16] MEDS: ASPIRIN 81 MG PO SCH (10:04)
[2021-09-16] MEDS: PANTOPRAZOLE 40 MG TABLET PO SCH (10:04)
[2021-09-16] MEDS: FAMOTIDINE 20 MG TAB PO SCH (10:05)
[2021-09-16] MEDS: LACOSAMIDE 50 MG TABLET PO SCH (10:05)
--- NOTE | 2021-09-16 10:27 | P.DS ---
Providers Date of admission: 09/12/21 20:31 Expected date of discharge: 09/16/21 Attending physician: Jerry Ortiz MD Consults: 09/12/21 20:47 Consult Physician Routine Consulting Provider: Adalberto Carney Consult Reason/Comments: H&P and medical Do you want consulting provider notified?: Yes Primary care physician: Adalberto Carney MD - Discharge Diagnosis(es) (1) Bipolar disorder current episode depressed Current Visit: Yes Status: Acute Priority: High (2) Generalized anxiety disorder Current Visit: Yes Status: Acute Priority: Medium (3) Factitious disorder Current Visit: Yes Status: Acute Priority: Medium (4) Psychogenic nonepileptic seizure Current Visit: Yes Status: Acute Priority: Low Hospital Course: Admission HPI: Admission note was completed by selling underwriter "This patient is a 45-year-old female who currently lives with her fianc and 1 son in a house. She has 3 kids total. The patient presented to the hospital as a referral from her PCP Dr. Carney. Patient had apparently recently overdosed on opiates and been in [facility]. Patient was then diagnosed with bilateral pulmonary embolisms and DVTs and admitted to the medical floors. Patient was seen for psychiatric consultation for depression and anxiety along with bizarre behaviors at home. The thought initially was that patient was displaying conversion disorder as she was falsifying a diagnosis of cancer and even went as far as having her family drop her off at the cancer Center and she apparently she thrown had been pretended that she was getting chemotherapy. Patient was seen during group today and agreeable to speak to selling underwriter. She appeared to be fairly constricted and had her head slouched over and was sitting in a wheelchair. She was tearful while talking with selling underwriter and states that "I had a mental breakdown". She states that she "lost it" and was tearful. She states that this occurred about 2 weeks ago. She states that she "made up a lot of lies". She claims that she told her family that she had cancer and she also lied to her doctor as well. She states that she did not do it for pain medications or other gains but simply for "attention". She states that usually her bipolar medications do help her however she has been having mood swings. She was perseverating on "mentally ill". She was agreeable to be started back on medications today. She states that her sleep has been poor approximately 1-2 hours a night. At this time patient denies any homical ideations, intent or plan. Patient did state that she does have suicidal thoughts however no intent or plan. Patient denies any auditory, visual hallucinations and denies any paranoia or delusions. Patients admits to using no recreational drugs or cigarettes" Hospital course: Upon admission to the unit patient was directable and agreeable to commence treatment and signed adult voluntary form. Patient got along well with other patients on the unit and followed unit protocol. Patient was compliant with the medications and denied any side effects throughout hospital course. Patient was also started on Zyprexa and titrated up to dose of 10 mg daily at bedtime for mood stabilization/psychosis/insomnia, BuSpar 15 mg 3 times a day for anxiety. [place] level drawn on morning of discharge was 1.3, therefore lithium was decreased down to 450 mg daily at bedtime +300 mg daily for mood stabili zation/suicidal thoughts and will need to be rechecked in 1 week the lithium level. Patient spoke of his stressors and engaged in therapy both group and individual. Patient was also seen by medical team for history and physical exam. Throughout the course of the hospitalization patient gradually improved with regards to mood, anxiety, sleep and returned back to their baseline level of functioning. On the day of discharge patient denied any suicidal or homicidal ideations intent or plan denied any auditory or visual hallucinations. Patient endorsed wanting to live for her health and future. The patient denied any access to guns or weapons. Patient denied any paranoia and did not endorse any delusions. Patient does not have a significant history of substance abuse however was counseled on abstaining from all substances including alcohol and marijuana. Patient was also counseled on the medications and need for regular compliance and was encouraged to follow-up with their outpatient appointment for mental health and also for primary care. Prior to discharge a family meeting will be arranged by manager social responsibility to answer any questions and ensure safety upon discharge. Mental status exam: General Appearance: Patient appears to be overweight, short hair with classes, stated age is alert, pleasant, and cooperative. Patient is in no acute distress and has improved hygiene and grooming Behavior: Patient is calmly seated without any agitated behavior. Speech: Patient's speech is fluent and nonpressured. Mood/Affect: Patient reports their mood is "better", affect is congruent Suicidality/Homicidality: Patient denies having any suicidal or homicidal ideation intent or plan. Perceptions: Patient denies any auditory or visual hallucinations. Though content/process: There is no evidence of any delusional thought content and thought process is linear and goal-directed. more future oriented Memory and concentration: AOX3, grossly intact for the purposes of this session. Can spell "WORLD" backwards correctly. Judgment and insight: chronically poor, however has improved with guarded prognosis Impression: Bipolar disorder, current episode depressed Generalized anxiety disorder Factitious disorder History of psychogenic seizures Plan: -Continue with discharge today as patient has improved and stabilized psychiatrically and is not currently an imminent threat to herself and/or others. -Continue medications: [place] was reduced down to 450 mg daily at bedtime +300 mg daily for mood stabilization/suicidal thoughts, Zyprexa 10 mg daily at bedtime for mood stabilization/psychosis/insomnia, BuSpar 15 mg 3 times a day for anxiety. -Patient will need to have a lithium level checked in 1 week after discharge. -Patient was counseled on the need for medication compliance and appropriate follow-up at mental health and also primary care for medical issues. Patient verbalized understanding and agreed. -Social work to arrange for and conduct family meeting to ensure safety upon discharge and answer any questions/concerns. Social work also to arrange for patients follow up appointments with [facility] for psychiatric care along with follow up with primary care provider. -Patient counseled on abstaining from recreational drugs and marijuana and alcohol. Was informed/educated on the adverse effects on their physical and mental health. Patient verbally agreed and understood. -Patient was instructed to return to the hospital or seek immediate medical care if their psychiatric or medical symptoms do worsen or reoccur. Allergies Allergy/AdvReac Type Severity Reaction Status Date / Time duloxetine Allergy Rash/Hives Verified 09/12/21 22:10 gluten Allergy Swelling Verified 09/12/21 22:10 phenytoin [From Dilantin] Allergy Unknown Verified 09/12/21 22:10 shellfish derived [Shellfish] Allergy Anaphylaxis Verified 09/12/21 22:10 Laboratory Results WBC 5.9 k/uL (3.8-10.6) 09/14/21 14:50 RBC 4.06 m/uL (3.80-5.40) 09/14/21 14:50 Hgb 12.5 gm/dL (11.4-16.0) 09/14/21 14:50 Hct 39.5 % (34.0-46.0) 09/14/21 14:50 MCV 97.2 fL (80.0-100.0) 09/14/21 14:50 MCH 30.7 pg (25.0-35.0) 09/14/21 14:50 MCHC 31.6 g/dL (31.0-37.0) 09/14/21 14:50 RDW 13.6 % (11.5-15.5) 09/14/21 14:50 Plt Count 165 k/uL (150-450) 09/14/21 14:50 MPV 10.8 09/14/21 14:50 Neutrophils % 61 % 09/14/21 14:50 Lymphocytes % 25 % 09/14/21 14:50 Monocytes % 7 % 09/14/21 14:50 Eosinophils % 5 % 09/14/21 14:50 Basophils % 1 % 09/14/21 14:50 Neutrophils # 3.6 k/uL (1.3-7.7) 09/14/21 14:50 Lymphocytes # 1.5 k/uL (1.0-4.8) 09/14/21 14:50 Monocytes # 0.4 k/uL (0-1.0) 09/14/21 14:50 Eosinophils # 0.3 k/uL (0-0.7) 09/14/21 14:50 Basophils # 0.0 k/uL (0-0.2) 09/14/21 14:50 Sodium 138 mmol/L (137-145) 09/14/21 14:50 Potassium 3.5 mmol/L (3.5-5.1) 09/14/21 14:50 Chloride 109 mmol/L (98-107) H 09/14/21 14:50 Carbon Dioxide 16 mmol/L (22-30) L 09/14/21 14:50 Anion Gap 13 mmol/L 09/14/21 14:50 BUN 9 mg/dL (7-17) 09/14/21 14:50 Creatinine 0.68 mg/dL (0.52-1.04) 09/14/21 14:50 Est GFR (CKD-EPI)AfAm >90 (>60 ml/min/1.73 sqM) 09/14/21 14:50 Est GFR (CKD-EPI)NonAf >90 (>60 ml/min/1.73 sqM) 09/14/21 14:50 Glucose 78 mg/dL (74-99) 09/14/21 14:50 Calcium 9.6 mg/dL (8.4-10.2) 09/14/21 14:50 Total Bilirubin 0.6 mg/dL (0.2-1.3) 09/14/21 14:50 AST 24 U/L (14-36) 09/14/21 14:50 ALT 20 U/L (4-34) 09/14/21 14:50 Alkaline Phosphatase 65 U/L (38-126) 09/14/21 14:50 Total Protein 6.7 g/dL (6.3-8.2) 09/14/21 14:50 Albumin 3.6 g/dL (3.5-5.0) 09/14/21 14:50 Urine Color Yellow 09/14/21 13:00 Urine Appearance Cloudy (Clear) H 09/14/21 13:00 Urine pH 7.0 (5.0-8.0) 09/14/21 13:00 Ur Specific [place] 1.011 (1.001-1.035) 09/14/21 13:00 Urine Protein 1+ (Negative) H 09/14/21 13:00 Urine Glucose (UA) Negative (Negative) 09/14/21 13:00 Urine Ketones Negative (Negative) 09/14/21 13:00 Urine Blood Large (Negative) H 09/14/21 13:00 Urine Nitrite Negative (Negative) 09/14/21 13:00 Urine Bilirubin Negative (Negative) 09/14/21 13:00 Urine Urobilinogen <2.0 mg/dL (<2.0) 09/14/21 13:00 Ur Leukocyte Esterase Large (Negative) H 09/14/21 13:00 Urine RBC 10 /hpf (0-5) H 09/14/21 13:00 Urine WBC 42 /hpf (0-5) H 09/14/21 13:00 Ur Squamous Epith Cells 8 /hpf (0-4) H 09/14/21 13:00 Urine Bacteria Few /hpf (None) H 09/14/21 13:00 Hyaline Casts 3 /lpf (0-2) H 09/14/21 13:00 Urine Mucus Rare /hpf (None) H 09/14/21 13:00 Urine Yeast (Budding) Few /hpf (None) H 09/14/21 13:00 [place] 1.3 mmol/L 09/16/21 06:54 Vital Signs Temp 97.7 F 09/16/21 05:48 Pulse 111 H 09/16/21 05:48 Resp 20 09/16/21 05:48 BP 121/75 09/16/21 05:48 Pulse Ox 99 09/15/21 21:30 Patient Condition at Discharge: Stable Plan - Discharge Summary Discharge Rx Participant: No New Discharge Prescriptions: New busPIRone HCl [Buspar] 15 mg PO TID 30 Days tab levETIRAcetam [Keppra] 750 mg PO BID 30 Days tab Atorvastatin [Lipitor] 10 mg PO HS 30 Days tab [place] Carbonate 300 mg PO DAILY 30 Days capsule [place] Carbonate 450 mg PO HS 30 Days capsule Aspirin 81 mg PO DAILY 30 Days Apixaban [Eliquis] 10 mg PO BID 30 Days tab Cephalexin [Keflex] 500 mg PO BID 3 Days cap Lacosamide [Vimpat] 100 mg PO BID 30 Days tablet OLANZapine [ZyPREXA] 10 mg PO HS 30 Days tab Continue EPINEPHrine (Auto Inject) [Epipen] 0.3 mg IM ONCE PRN PRN Reason: Anaphylaxis Acetaminophen Tab [Tylenol] 650 mg PO Q4HR PRN tab PRN Reason: Fever And/ Or Pain Meloxicam [Mobic] 15 mg PO DAILY 30 Days tab Famotidine [Pepcid] 20 mg PO BID 30 Days tab Pantoprazole [Protonix] 40 mg PO BID 30 Days tab Topiramate [Topamax] 50 mg PO Q12H 30 Days tab traMADol HCl [Ultram] 50 mg PO QID PRN tab PRN Reason: Pain Discontinued LORazepam [Ativan] 1 mg PO TID PRN tab PRN Reason: Agitation Apixaban [Eliquis] 10 mg PO BID tab Magnesium Hydroxide [Milk of Magnesia Concentrate] 2,400 mg PO DAILY PRN ml PRN Reason: Constipation OLANZapine [ZyPREXA] 5 mg PO BID tab levETIRAcetam [Keppra] 750 mg PO BID Lacosamide [Vimpat] 100 mg PO BID Desvenlafaxine Succinate [Pristiq ER] 50 mg PO DAILY Atorvastatin Calcium [Lipitor] 10 mg PO HS Aspirin EC [Ecotrin Low Dose] 81 mg PO DAILY Mag Hydrox/Al Hydrox/Simeth [Maalox] 30 ml PO Q4HR PRN ml PRN Reason: Gi Upset Discharge Medication List EPINEPHrine (Auto Inject) [Epipen] 0.3 mg IM ONCE PRN 06/27/21 [History] Acetaminophen Tab [Tylenol] 650 mg PO Q4HR PRN tab 09/12/21 [Rx] traMADol HCl [Ultram] 50 mg PO QID PRN tab 09/12/21 [Rx] Apixaban [Eliquis] 10 mg PO BID 30 Days tab 09/16/21 [Rx] Aspirin 81 mg PO DAILY 30 Days 09/16/21 [Rx] Atorvastatin [Lipitor] 10 mg PO HS 30 Days tab 09/16/21 [Rx] Cephalexin [Keflex] 500 mg PO BID 3 Days cap 09/16/21 [Rx] Famotidine [Pepcid] 20 mg PO BID 30 Days tab 09/16/21 [Rx] Lacosamide [Vimpat] 100 mg PO BID 30 Days tablet 09/16/21 [Rx] [place] Carbonate 300 mg PO DAILY 30 Days capsule 09/16/21 [Rx] [place] Carbonate 450 mg PO HS 30 Days capsule 09/16/21 [Rx] Meloxicam [Mobic] 15 mg PO DAILY 30 Days tab 09/16/21 [Rx] OLANZapine [ZyPREXA] 10 mg PO HS 30 Days tab 09/16/21 [Rx] Pantoprazole [Protonix] 40 mg PO BID 30 Days tab 09/16/21 [Rx] Topiramate [Topamax] 50 mg PO Q12H 30 Days tab 09/16/21 [Rx] busPIRone HCl [Buspar] 15 mg PO TID 30 Days tab 09/16/21 [Rx] levETIRAcetam [Keppra] 750 mg PO BID 30 Days tab 09/16/21 [Rx] Discharge Disposition: HOME SELF-CARE
== END 2021-09-16 15:15 | disposition home or self-care (01) | DRG 885 ==
LOC: 3MHU 20:31
PROVIDERS: ADMIT Psychiatry & Neurology Psychiatry; ATTEND Psychiatry & Neurology Psychiatry
DX: F31.30 Bipolar disorder, current episode depressed, mild or moderate severity, unspecified (principal); I26.99 Other pulmonary embolism without acute cor pulmonale; I82.412 Acute embolism and thrombosis of left femoral vein; F41.1 Generalized anxiety disorder; F44.5 Conversion disorder with seizures or convulsions; G47.00 Insomnia, unspecified; T40.602A Poisoning by unspecified narcotics, intentional self-harm, initial encounter; Z56.0 Unemployment, unspecified; Z20.822 Contact with and (suspected) exposure to COVID-19; Z79.01 Long term (current) use of anticoagulants; Z79.1 Long term (current) use of non-steroidal anti-inflammatories (NSAID); Z79.82 Long term (current) use of aspirin; Z79.899 Other long term (current) drug therapy; Z82.49 Family history of ischemic heart disease and other diseases of the circulatory system; Z85.01 Personal history of malignant neoplasm of esophagus; Z86.73 Personal history of transient ischemic attack (TIA), and cerebral infarction without residual deficits; Z91.14 Patient's other noncompliance with medication regimen; Z91.51 Personal history of suicidal behavior
CPT/HCPCS: 80053; 80178; 81001; 85025

== ENCOUNTER 2022-06-06 15:40 | Inpatient (IN) | payer MEDICARE, MEDICAID ==
--- NOTE | 2022-06-06 17:07 | ED ---
General Adult HPI - General Chief complaint: Psychiatric Symptoms Stated complaint: Mental Health Time Seen by Provider: 06/06/22 16:49 Source: patient Mode of arrival: ambulatory Limitations: no limitations - History of Present Illness Initial comments: Dictation was produced using [employer] dictation software. please excuse any grammatical, word or spelling errors. Chief Complaint: 46-year-old female presents emergency department for suicidal ideation and suicidal attempt History of Present Illness: Is a 46-year-old female presents to the emergency department for suicidal ideation and suicidal attempt. 5 days ago patient tried to overdose on her trazodone pills. She took 8 tablets of 50 mg trazodone. Patient states she vomited immediately after. Patient has otherwise been feeling fine. She is here with her fianc for suicidal evaluation. Patient has had suicidal behavior and attempts in the past. Patient denies any medical complaints at this time. The ROS documented in this emergency department record has been reviewed and confirmed by me. Those systems with pertinent positive or negative responses have been documented in the HPI. All other systems are other negative and/or noncontributory. PHYSICAL EXAM: General Impression: Alert and oriented x3, not in acute distress HEENT: Normocephalic atraumatic, extra-ocular movements intact, pupils equal and reactive to light bilaterally, mucous membranes moist. Cardiovascular: Heart regular rate and rhythm Chest: Able to complete full sentences, no retractions, no tachypnea Abdomen: abdomen soft, non-tender, non-distended, no organomegaly Musculoskeletal: Pulses present and equal in all extremities, no peripheral edema Motor: no focal deficits noted Neurological: CN II-XII grossly intact, no focal motor or sensory deficits noted Skin: Intact with no visualized rashes Psych: Tearful ED course: 46-year-old female presents emergency department for suicidal attempt and suicidal ideation. Vital signs upon arrival within acceptable limits. Patient did take 8 tablets of 50 mg trazodone's that she is prescribed. She has no medical complaints at this time. [facility] control was contacted and recommended blood work Laboratory evaluation obtained. CBC, metabolic panel, toxicology labs are negative. Patient medically cleared for EPS evaluation. Patient admitted to inpatient psych - Related Data Home Medications Medication Instructions Recorded Confirmed Apixaban [Eliquis] 5 mg PO BID 06/06/22 06/07/22 Desvenlafaxine Succinate [Pristiq] 100 mg PO DAILY 06/06/22 06/07/22 traZODone HCL 150 mg PO HS 06/06/22 06/07/22 Previous Rx's Medication Instructions Recorded Atorvastatin [Lipitor] 10 mg PO HS 30 Days tab 09/16/21 OLANZapine [ZyPREXA] 10 mg PO HS 30 Days tab 09/16/21 Pantoprazole [Protonix] 40 mg PO BID 30 Days tab 09/16/21 Topiramate [Topamax] 50 mg PO Q12H 30 Days tab 09/16/21 Allergies Allergy/AdvReac Type Severity Reaction Status Date / Time duloxetine Allergy Rash/Hives Verified 06/07/22 00:18 gluten Allergy Swelling Verified 06/07/22 00:18 phenytoin [From Dilantin] Allergy Unknown Verified 06/07/22 00:18 shellfish derived [Shellfish] Allergy Anaphylaxis Verified 06/07/22 00:18 Review of Systems ROS Statement: Those systems with pertinent positive or pertinent negative responses have been documented in the HPI. ROS Other: All systems not noted in ROS Statement are negative. Past Medical History Past Medical History: Cancer, CVA/TIA Additional Past Medical History / Comment(s): pt. states they have had TIA in 2014, 2017, august 30 2019, pseudoseziures, bipolar 1, anxiety. liver, upper intestion, esophageal CA History of Any Multi-Drug Resistant Organisms: None Reported Past Surgical History: Section, Cholecystectomy, Tonsillectomy, Tubal Ligation Additional Past Surgical History / Comment(s): fundaplication, laproscopic scar tissue removal, partial stomach removal surgery R/T CA Past Anesthesia/Blood Transfusion Reactions: No Reported Reaction Past Psychological History: Anxiety, Bipolar, Depression Smoking Status: Never smoker Past Alcohol Use History: Occasional Past Drug Use History: None Reported - Past Family History Mother History Unknown: Yes Family Medical History: Congestive Heart Failure (CHF) Sister(s) History Unknown: Yes Additional Family Medical History / Comment(s): Lupus Brother(s) History Unknown: Yes Family Medical History: Deep Vein Thrombosis (DVT) Additional Family Medical History / Comment(s): cystic fibrosis,recent bilateral DVT General Exam Limitations: no limitations Course Vital Signs 06/06/22 06/06/22 06/06/22 16:44 18:27 20:00 Temperature 98.0 F Pulse Rate 103 H 75 Respiratory 18 18 17 Rate Blood Pressure 124/89 119/67 O2 Sat by Pulse 97 96 Oximetry Medical Decision Making - Lab Data Result diagrams: 06/06/22 17:39 06/06/22 17:39 Lab Results 06/06/22 06/06/22 06/06/22 Range/Units 17:39 17:39 17:41 WBC 6.1 (3.8-10.6) k/uL RBC 4.51 (3.80-5.40) m/uL Hgb 14.0 (11.4-16.0) gm/dL Hct 42.4 (34.0-46.0) % MCV 94.0 (80.0-100.0) fL MCH 30.9 (25.0-35.0) pg MCHC 32.9 (31.0-37.0) g/dL RDW 12.7 (11.5-15.5) % Plt Count 193 (150-450) k/uL MPV 9.6 Neutrophils % 64 % Lymphocytes % 26 % Monocytes % 5 % Eosinophils % 2 % Basophils % 1 % Neutrophils # 3.9 (1.3-7.7) k/uL Lymphocytes # 1.6 (1.0-4.8) k/uL Monocytes # 0.3 (0-1.0) k/uL Eosinophils # 0.1 (0-0.7) k/uL Basophils # 0.1 (0-0.2) k/uL Sodium 137 (137-145) mmol/L Potassium 4.0 (3.5-5.1) mmol/L Chloride 103 (98-107) mmol/L Carbon Dioxide 21 L (22-30) mmol/L Anion Gap 13 mmol/L BUN 14 (7-17) mg/dL Creatinine 0.81 (0.52-1.04) mg/dL Est GFR (CKD-EPI)AfAm >90 (>60 ml/min/1.73 sqM) Est GFR (CKD-EPI)NonAf 88 (>60 ml/min/1.73 sqM) Glucose 91 (74-99) mg/dL Calcium 9.0 (8.4-10.2) mg/dL Total Bilirubin 0.6 (0.2-1.3) mg/dL AST 18 (14-36) U/L ALT 14 (4-34) U/L Alkaline Phosphatase 79 (38-126) U/L Total Protein 7.0 (6.3-8.2) g/dL Albumin 4.3 (3.5-5.0) g/dL Salicylates <1.0 mg/dL Urine Opiates Screen Not Detected (NotDetected) Ur Oxycodone Screen Not Detected (NotDetected) Urine Methadone Screen Not Detected (NotDetected) Ur Propoxyphene Screen Not Detected (NotDetected) Acetaminophen <10.0 ug/mL Ur Barbiturates Screen Not Detected (NotDetected) U Tricyclic Antidepress Not Detected (NotDetected) Ur Phencyclidine Scrn Not Detected (NotDetected) Ur Amphetamines Screen Not Detected (NotDetected) U Methamphetamines Scrn Not Detected (NotDetected) U Benzodiazepines Scrn Not Detected (NotDetected) Urine Cocaine Screen Not Detected (NotDetected) U Marijuana (THC) Screen Detected H (NotDetected) Serum Alcohol <10 mg/dL Coronavirus (PCR) (Not Detectd) 06/06/22 Range/Units 17:44 WBC (3.8-10.6) k/uL RBC (3.80-5.40) m/uL Hgb (11.4-16.0) gm/dL Hct (34.0-46.0) % MCV (80.0-100.0) fL MCH (25.0-35.0) pg MCHC (31.0-37.0) g/dL RDW (11.5-15.5) % Plt Count (150-450) k/uL MPV Neutrophils % % Lymphocytes % % Monocytes % % Eosinophils % % Basophils % % Neutrophils # (1.3-7.7) k/uL Lymphocytes # (1.0-4.8) k/uL Monocytes # (0-1.0) k/uL Eosinophils # (0-0.7) k/uL Basophils # (0-0.2) k/uL Sodium (137-145) mmol/L Potassium (3.5-5.1) mmol/L Chloride (98-107) mmol/L Carbon Dioxide (22-30) mmol/L Anion Gap mmol/L BUN (7-17) mg/dL Creatinine (0.52-1.04) mg/dL Est GFR (CKD-EPI)AfAm (>60 ml/min/1.73 sqM) Est GFR (CKD-EPI)NonAf (>60 ml/min/1.73 sqM) Glucose (74-99) mg/dL Calcium (8.4-10.2) mg/dL Total Bilirubin (0.2-1.3) mg/dL AST (14-36) U/L ALT (4-34) U/L Alkaline Phosphatase (38-126) U/L Total Protein (6.3-8.2) g/dL Albumin (3.5-5.0) g/dL Salicylates mg/dL Urine Opiates Screen (NotDetected) Ur Oxycodone Screen (NotDetected) Urine Methadone Screen (NotDetected) Ur Propoxyphene Screen (NotDetected) Acetaminophen ug/mL Ur Barbiturates Screen (NotDetected) U Tricyclic Antidepress (NotDetected) Ur Phencyclidine Scrn (NotDetected) Ur Amphetamines Screen (NotDetected) U Methamphetamines Scrn (NotDetected) U Benzodiazepines Scrn (NotDetected) Urine Cocaine Screen (NotDetected) U Marijuana (THC) Screen (NotDetected) Serum Alcohol mg/dL Coronavirus (PCR) Not Detected (Not Detectd) Disposition Clinical Impression: Attempted suicide Disposition: ADMITTED IP TO THIS HOSP
[2022-06-06 17:50] LABS: Basophils # (A) 0.1 k/uL (0-0.2); Basophils % (A) 1 %; Eosinophils # (A) 0.1 k/uL (0-0.7); Eosinophils % (A) 2 %; HCT 42.4 % (34.0-46.0); Lymphocytes # (A) 1.6 k/uL (1.0-4.8); Lymphocytes % (A) 26 %; MCH 30.9 pg (25.0-35.0); MCHC 32.9 g/dL (31.0-37.0); Mean Platelet Volume 9.6; Monocytes # (A) 0.3 k/uL (0-1.0); Monocytes % (A) 5 %; Neutrophils # (A) 3.9 k/uL (1.3-7.7); Neutrophils % (A) 64 %; Platelet Count 193 k/uL (150-450); RBC 4.51 m/uL (3.80-5.40); RDW 12.7 % (11.5-15.5); WBC 6.1 k/uL (3.8-10.6)
[2022-06-06 18:01] LABS: ALT 14 U/L (4-34); AST 18 U/L (14-36); Acetaminophen <10.0 ug/mL; African American GFR (CKD) >90 (>60 ml/min/1.73 sqM); Albumin 4.3 g/dL (3.5-5.0); Alcohol <10 mg/dL; Alkaline Phosphatase 79 U/L (38-126); Anion Gap 13 mmol/L; Blood Urea Nitrogen 14 mg/dL (7-17); Carbon Dioxide 21 mmol/L (22-30); Chloride 103 mmol/L (98-107); Glucose 91 mg/dL (74-99); Non-African American GFR(CKD) 88 (>60 ml/min/1.73 sqM); Salicylate <1.0 mg/dL; Sodium 137 mmol/L (137-145); Total Bilirubin 0.6 mg/dL (0.2-1.3)
[2022-06-06 18:07] LABS: Amphetamine Screen,Urine Not Detected (NotDetected); Barbiturate Screen,Urine Not Detected (NotDetected); Benzodiazepines Screen,Urine Not Detected (NotDetected); Cocaine Screen,Urine Not Detected (NotDetected); Methadone Screen, Urine Not Detected (NotDetected); Opiate Screen,Urine Not Detected (NotDetected); Oxycodone Screen, Urine Not Detected (NotDetected); Phencyclidine Screen,Urine Not Detected (NotDetected); Tricyclic Antidepressant,Urine Not Detected (NotDetected); Urn Cannabinoid Scrn Detected (NotDetected)
[2022-06-07] MEDS ORDERED: MAGNESIUM HYDROXIDE 2,400 MG/10 ML CUP PO PRN (00:10)
[2022-06-07] MEDS ORDERED: ACETAMINOPHEN TAB 325 MG TAB PO PRN (00:10)
[2022-06-07] MEDS ORDERED: MAG HYDROX/AL HYDROX/SIMETH 30 ML CUP PO PRN (00:10)
[2022-06-07] MEDS ORDERED: OLANZapine 5 MG TAB PO PRN (00:14)
[2022-06-07] MEDS ORDERED: OLANZapine 10 MG VIAL IM PRN (00:14)
[2022-06-07] MEDS ORDERED: hydrOXYzine pamoate 25 MG CAP PO PRN (00:16)
[2022-06-07] MEDS ORDERED: hydrOXYzine HCL 50 MG/ML 1 ML VIAL IM PRN (00:16)
[2022-06-07 01:13] LABS: Amorphous Sediment,Urine Rare /hpf; Appearance,Urine Turbid (Clear); Bacteria,Urine Moderate /hpf; Bilirubin,Urine Negative (Negative); Blood,Urine Negative (Negative); Color,Urine Yellow; Glucose,Urine (UA) Negative (Negative); Hyaline Casts,Urine 10 /lpf (0-2); Ketones,Urine Negative (Negative); Leukocyte Esterase,Urine Large (Negative); Mucus,Urine Many /hpf; Nitrite,Urine Negative (Negative); PH, Urine 5.5 (5.0-8.0); Protein,Urine 1+ (Negative); RBC,Urine 2 /hpf (0-5); Squamous Epithelial Cell,Urine 17 /hpf (0-4); Urobilinogen,Urine <2.0 mg/dL (<2.0); WBC,Urine 20 /hpf (0-5)
[2022-06-07] MEDS ORDERED: traZODone HCL 50 MG TAB PO SCH ×2 (01:15→21:00)
[2022-06-07] MEDS: TOPIRAMATE 25 MG TAB PO SCH ×3 (01:27→21:26)
[2022-06-07] MEDS ORDERED: DESVENLAFAXINE SUCCINATE 50 MG TAB.ER.24H PO SCH (09:00)
[2022-06-07] MEDS: PANTOPRAZOLE 40 MG TABLET PO SCH ×2 (09:03→18:32)
[2022-06-07] MEDS: APIXABAN 5 MG TAB PO SCH ×2 (09:03→21:25)
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
[2022-06-07] MEDS ORDERED: ATORVASTATIN 10 MG TAB PO SCH (21:00)
[2022-06-07] MEDS ORDERED: traZODone HCL 100 MG TAB PO SCH (21:00)
[2022-06-07] MEDS ORDERED: OLANZapine 10 MG TAB PO SCH (21:00)
[2022-06-08 06:22] VITALS: BP 112/57; PULSE 68; RESP 14; TEMP 98.6
[2022-06-08] MEDS: PANTOPRAZOLE 40 MG TABLET PO SCH (08:59)
[2022-06-08] MEDS: APIXABAN 5 MG TAB PO SCH (08:59)
[2022-06-08] MEDS ORDERED: DESVENLAFAXINE SUCCINATE 50 MG TAB.ER.24H PO SCH (09:00)
--- NOTE | 2022-06-08 11:37 | P.CONS ---
History of Present Illness - Reason for Consult Consult date: 06/07/22 medical eval - Chief Complaint suicidal - History of Present Illness Marielena Perkins is a 46 yo F with PMH of bipolar disorder, severe recurrent major depression, hx suicide attempt, factitious disorder who presented to the ED with suicide attempt. She is brought by her Fiance and states that over the past few weeks has been feeling much more low and depressed and has tried taking all her trazodone pills to kill herself. She states that ever since her family found out she was faking her cancer diagnosis last year she has dealt with her children not wanting to speak with her and has been very stressful and hard. She complains of anhedonia and no motivation. She was supposed to follow with [facility] t has not seen them in over a month. On presentation vitals stable, labs unremarkable, UDS positive for THC, UA negative nitrate, pos LE and bacteria. Review of Systems All systems: negative Constitutional: Denies chills, Denies fever Eyes: denies blurred vision, denies pain Ears, nose, mouth and throat: Denies headache, Denies sore throat Cardiovascular: Denies chest pain, Denies shortness of breath Respiratory: Denies cough Gastrointestinal: Denies abdominal pain, Denies diarrhea, Denies nausea, Denies vomiting Genitourinary: Denies dysuria, Denies hematuria Musculoskeletal: Denies myalgias Integumentary: Denies pruritus, Denies rash Neurological: Denies numbness, Denies weakness Psychiatric: Reports as per HPI, Reports anhedonia, Reports depression, Denies anxiety Endocrine: Denies fatigue, Denies weight change Past Medical History Past Medical History: Cancer, CVA/TIA Additional Past Medical History / Comment(s): pt. states they have had TIA in 2014, 2017, august 30 2019, pseudoseziures, bipolar 1, anxiety. liver, upper intestion, esophageal CA History of Any Multi-Drug Resistant Organisms: None Reported Past Surgical History: Section, Cholecystectomy, Tonsillectomy, Tubal Ligation Additional Past Surgical History / Comment(s): fundaplication, laproscopic scar tissue removal, partial stomach removal surgery R/T [place] Past Anesthesia/Blood Transfusion Reactions: No Reported Reaction Past Psychological History: Anxiety, Bipolar, Depression Smoking Status: Never smoker Past Alcohol Use History: Occasional Past Drug Use History: None Reported - Past Family History Mother History Unknown: Yes Family Medical History: Congestive Heart Failure (CHF) Sister(s) History Unknown: Yes Additional Family Medical History / Comment(s): Lupus Brother(s) History Unknown: Yes Family Medical History: Deep Vein Thrombosis (DVT) Additional Family Medical History / Comment(s): cystic fibrosis,recent bilateral DVT Medications and Allergies Home Medications Medication Instructions Recorded Confirmed Type Atorvastatin [Lipitor] 10 mg PO HS 30 Days tab 09/16/21 06/07/22 Rx OLANZapine [ZyPREXA] 10 mg PO HS 30 Days tab 09/16/21 06/07/22 Rx Pantoprazole [Protonix] 40 mg PO BID 30 Days tab 09/16/21 06/07/22 Rx Topiramate [Topamax] 50 mg PO Q12H 30 Days tab 09/16/21 06/07/22 Rx Apixaban [Eliquis] 5 mg PO BID 06/06/22 06/07/22 History Desvenlafaxine Succinate [Pristiq] 100 mg PO DAILY 06/06/22 06/07/22 History traZODone HCL 150 mg PO HS 06/06/22 06/07/22 History Allergies Allergy/AdvReac Type Severity Reaction Status Date / Time duloxetine Allergy Rash/Hives Verified 06/07/22 00:18 gluten Allergy Swelling Verified 06/07/22 00:18 phenytoin [From Dilantin] Allergy Unknown Verified 06/07/22 00:18 shellfish derived [Shellfish] Allergy Anaphylaxis Verified 06/07/22 00:18 Physical Exam Vitals: Vital Signs Temp Pulse Resp BP 06/08/22 06:21 98.6 F 68 14 112/57 General: well developed, well nourished female in mild distress HEENT: NC, AT, mmm Neck: supple, no thyromegaly or JVD CV: RRR, no murmur. Pulses 2+ Lungs: Normal effort, clear throughout Abd: soft, nontender, non distended Neuro: alert and oriented x3, no focal deficit Skin: warm and dry Results CBC & Chem 7: 06/06/22 17:39 06/06/22 17:39 Assessment and Plan Plan: Suicidal ideation. Management per psychiatry Major depression, severe Hx DVT. Continue eliquis GERD. Continue protonix Asymptomatic bacturia
--- NOTE | 2022-06-08 11:46 | P.PN ---
Progress Note - Text Progress Note Date: 06/08/22 Interval History: Patient was seen wandering the hallways and was directable and agreeable to speak with data analyst report writer in the office. Currently, the patient reports ongoing symptoms of depression however states that she is feeling slightly better. She reports feelings of hopelessness and helplessness. She states that she has excessive feelings of guilt and has been reminiscing about her past actions. She is currently denying any suicidal or homicidal ideation, intention, and/or plan. She is not reporting any auditory or visual hallucinations. She is denying any paranoia or other delusions. Patient has been adherent with her medication is not reporting any significant side effects at this time. She is open to the transition to Effexor today. Mental Status Exam: General Appearance: Patient appears to be stated age is alert, directable, and cooperative. Behavior: Patient is calmly seated without any agitated behavior. Less psychomotor slowing today. Speech: Patient's speech is fluent and nonpressured. Monotone and low in volume however quicker to respond today. Mood/Affect: Mood is improving mildly, affect is congruent and withdrawn Suicidality/Homicidality: Patient denies having any suicidal or homicidal ideation intent or plan. Perceptions: Patient denies any visual hallucinations and denies any auditory hallucinations Though content/process: There is no evidence of any delusional thought content and thought process is linear and goal-directed. Memory and concentration: AOX3, grossly intact for the purposes of this session Judgment and insight: Improving mildly Vital Signs Temp 98.6 F 06/08/22 06:21 Pulse 68 06/08/22 06:21 Resp 14 06/08/22 06:21 BP 112/57 06/08/22 06:21 Pulse Ox 98 06/07/22 00:42 FiO2 Laboratory Results - Last 24 Hours 06/07/22 06/07/22 08:58 08:[address] Glu mg/dL 113 Hemoglobin A1c 5.6 TSH 4.090 Assessment Major depressive disorder, recurrent, severe Generalized anxiety disorder Factitious disorder Posttraumatic stress disorder Cluster B personality traits Plan: -Patient continues to meet criteria for inpatient psychiatric admission for symptom stabilization and safety. Patient has signed adult voluntary form and medication consent and was placed in patient's chart. -Medications: Discontinue Pristiq and start Effexor XR 75 mg by mouth at bedtime for depression/anxiety Continue trazodone 20 mg by mouth at bedtime for insomnia Continue Topamax 50 mg by mouth every 12 hours -When necessary Vistaril and Zyprexa for agitation/aggression. -SW on board for discharge planning. Encouraged the patient to participate in milieu.
[2022-06-08] MEDS: TOPIRAMATE 25 MG TAB PO SCH (11:57)
[2022-06-08] MEDS ORDERED: LORazepam 1 MG/0.5 ML VIAL IM PRN (16:13)
[2022-06-08 16:16] LABS: Glucose,Whole Blood 93 mg/dL (70-110)
[2022-06-08 16:20] LABS: Chol/HDL Ratio 3.13 Ratio; LDL Cholesterol,Calculated 81.4 mg/dL (0.0-131.0)
[2022-06-08] MEDS ORDERED: LORazepam 1 MG/0.5 ML VIAL IM ONE (16:26)
[2022-06-08] MEDS ORDERED: VENLAFAXINE HCL ER 75 MG CAP PO SCH (21:00)
== END 2022-06-08 16:42 | disposition still patient (30) | DRG 918 ==
LOC: EC 15:40 → 3MHU 06-07 00:06
PROVIDERS: ADMIT Psychiatry & Neurology Psychiatry; ATTEND Psychiatry & Neurology Psychiatry
DX: T42.6X2A Poisoning by other antiepileptic and sedative-hypnotic drugs, intentional self-harm, initial encounter (principal); K90.41 Non-celiac gluten sensitivity; Z20.822 Contact with and (suspected) exposure to COVID-19; F31.9 Bipolar disorder, unspecified; F41.1 Generalized anxiety disorder; F43.10 Post-traumatic stress disorder, unspecified; F60.89 Other specific personality disorders; Z79.01 Long term (current) use of anticoagulants; Z79.899 Other long term (current) drug therapy; Z85.01 Personal history of malignant neoplasm of esophagus; Z86.73 Personal history of transient ischemic attack (TIA), and cerebral infarction without residual deficits; Z73.1 Type A behavior pattern; Z91.013 Allergy to seafood; Z90.49 Acquired absence of other specified parts of digestive tract; Z87.19 Personal history of other diseases of the digestive system; Z98.51 Tubal ligation status
CPT/HCPCS: 36415; 80053; 80061; 80143; 80164; 80179; 80306; 80320; 81001; 81025; 82075; 83036; 84443; 85025; 87635; 93005; 99285

== ENCOUNTER 2022-06-08 16:35 | Inpatient (IN) | payer MEDICARE, OTHER ==
[2022-06-08 19:24] LABS: Valproic Acid (Depakene) <10.0 ug/mL
[2022-06-08] MEDS ORDERED: VENLAFAXINE HCL 50 MG TAB PO SCH (20:00)
[2022-06-08] MEDS ORDERED: DESVENLAFAXINE SUCCINATE 50 MG TAB.ER.24H PO SCH (20:07)
[2022-06-08] MEDS ORDERED: ACETAMINOPHEN TAB 325 MG TAB PO PRN (20:29)
[2022-06-08] MEDS: ATORVASTATIN 10 MG TAB PO SCH (21:35)
[2022-06-08] MEDS: OLANZapine 10 MG TAB PO SCH (21:35)
[2022-06-08] MEDS: APIXABAN 5 MG TAB PO SCH (21:35)
[2022-06-08] MEDS: DESVENLAFAXINE SUCCINATE 50 MG TAB.ER.24H PO SCH (21:35)
[2022-06-08] MEDS: TOPIRAMATE 25 MG TAB PO SCH (21:35)
--- NOTE | 2022-06-08 23:29 | P.CNNES ---
History of Present Illness Consult date: 06/08/22 Requesting physician: Adalberto Carney Reason for Consult: Seizures History of Present Illness: Patient is a 46-year-old female with extensive psych history, history of multiple suicide attempts in the past, states he came to the hospital for mental breakdown. She initially came to the hospital on 06/06/2022 and was admitted to mental health unit for major depressive disorder, generalized anxiety disorder, factitious disorder, PTSD. On my review of her records, patient has reported that she overdosed on her Depakote, trazodone about 3 days prior. She has previous 5-6 history of suicide attempts. Patient states she has history of seizure disorder since age 21. Patient states that as long as she is taking her seizure medication, she does not get seizures. Apparently patient had witnessed seizures in the psych unit, therefore she was transferred to acute care in the hospital. Patient was seen in bed #366. I was informed about this patient at 5:29 PM patient had a seizure witnessed by the sitter. The charge nurse went in and she fell patient had a pseudoseizure. When she went to move the patient, she resisted gravity. Her vitals were stable with blood pressure 103/71, heart rate 73, saturation 95% on room air. I came to see patient right away. Patient was somewhat groggy, as she already has received total of 3 mg of Ativan since the seizure started earlier today. While she was being examined, patient had a seizure, that lasted for about 2 minutes. Patient was having low amplitude clonic movement of her arms, which was not bisynchronous, occurring asynchronously involving the upper extremities. Patient was falling. She did not bite her tongue. After she came out, she was able to answer questions fairly shortly. Patient states that she does feel the seizure coming on. Patient believes that she was taking Depakote although Depakote is not mentioned in her home medication list. The nurse called [facility] pharmacy at [place], and they confirmed the patient has not received Depakote from them. Patient has received Keppra 750 mg twice a day and Vimpat 100 mg twice a day that she picked on September 2021. The last time she received 90 days supply of Topamax 50 mg twice a day was in February 2022. Patient had a normal CBC on 06/06/2022. PT/PTT normal. Patient has positive lupus anticoagulant. Her hemoglobin A1c 5.6, hepatic panel is normal, ammonia is 10. TSH normal. Urine drug screen was positive for marijuana on 06/06/2022. Blood alcohol level was negative. Her Depakote level was < 10. Patient has very long-standing history of migraines for which she has been on Topamax 50 mg twice a day. Patient states that she follows up with neurologist at [facility]. She could not tell name of the neurologist. Patient had an EEG on 06/28/2021 which was reported abnormal due to background slowing suggestive of mild encephalopathy. No epileptiform activity was seen. Patient had an episode of head jerking briefly between 6 and 8 Hz photic solution and that did not seem to be epileptic in nature and did not seem to correlate for seizure. No seizure-like activity noted. Patient was seen by Dr. Miner and at that time she was maintained on her Topamax 50 mg in the morning 100 mg at bedtime, Keppra 750 mg twice a day and Vimpat 50 mg twice a day. Patient has been seen by myself previously on 08/29/2021 for a fall with concussion. Patient had a previous normal CTA of head and neck on 06/27/2021. Patient denies any history of tobacco or alcohol use. She states that she lives with her fianc and has 5 kids. Review of Systems ROS unobtainable: due to mental status Constitutional: Denies chills, Denies fever Eyes: denies blurred vision, denies pain Ears, nose, mouth and throat: Denies headache, Denies sore throat Cardiovascular: Denies chest pain, Denies shortness of breath Respiratory: Denies cough Gastrointestinal: Denies abdominal pain, Denies diarrhea, Denies nausea, Denies vomiting Genitourinary: Denies dysuria, Denies hematuria Musculoskeletal: Denies myalgias Integumentary: Denies pruritus, Denies rash Neurological: Denies numbness, Denies weakness Psychiatric: Reports anxiety, Reports depression Endocrine: Denies fatigue, Denies weight change Hematologic/Lymphatic: Denies easy bruising Past Medical History Past Medical History: Cancer, CVA/TIA Additional Past Medical History / Comment(s): pt. states they have had TIA in 2014, 2017, august 30 2019, pseudoseziures, bipolar 1, anxiety. liver, upper intestion, esophageal CA History of Any Multi-Drug Resistant Organisms: None Reported Past Surgical History: Section, Cholecystectomy, Tonsillectomy, Tubal Ligation Additional Past Surgical History / Comment(s): fundaplication, laproscopic scar tissue removal, partial stomach removal surgery R/T CA Past Anesthesia/Blood Transfusion Reactions: No Reported Reaction Past Psychological History: Anxiety, Bipolar, Depression Smoking Status: Never smoker Past Alcohol Use History: Occasional Past Drug Use History: None Reported - Past Family History Mother History Unknown: Yes Family Medical History: Congestive Heart Failure (CHF) Sister(s) History Unknown: Yes Additional Family Medical History / Comment(s): Lupus Brother(s) History Unknown: Yes Family Medical History: Deep Vein Thrombosis (DVT) Additional Family Medical History / Comment(s): cystic fibrosis,recent bilateral DVT Medications and Allergies Home Medications Medication Instructions Recorded Confirmed Type Atorvastatin [Lipitor] 10 mg PO HS 30 Days tab 09/16/21 06/08/22 Rx OLANZapine [ZyPREXA] 10 mg PO HS 30 Days tab 09/16/21 06/08/22 Rx Pantoprazole [Protonix] 40 mg PO BID 30 Days tab 09/16/21 06/08/22 Rx Topiramate [Topamax] 50 mg PO Q12H 30 Days tab 09/16/21 06/08/22 Rx Apixaban [Eliquis] 5 mg PO BID 06/06/22 06/08/22 History Desvenlafaxine Succinate [Pristiq] 100 mg PO DAILY 06/06/22 06/08/22 History traZODone HCL 200 mg PO HS 06/06/22 06/08/22 History Allergies Allergy/AdvReac Type Severity Reaction Status Date / Time duloxetine Allergy Rash/Hives Verified 06/07/22 00:18 gluten Allergy Swelling Verified 06/07/22 00:18 phenytoin [From Dilantin] Allergy Unknown Verified 06/07/22 00:18 shellfish derived [Shellfish] Allergy Anaphylaxis Verified 06/07/22 00:18 Physical Examination - Vital Signs Vital Signs: Intake and Output 06/08/22 06/08/22 06/08/22 06:59 14:59 22:59 Other: Weight 75.75 kg Patient is a middle aged female, who appears older than her stated age. Patient is slightly groggy, slow mentation perhaps related to receiving Ativan versus postictal state. Patient states the current president is Rita. She states is the month of September and the year is 2019. She believes that she is in the hospital building in [facility]. Speech and language functions are normal. Patient can name and repeat very well. No aphasia or dysarthria. Patient speaks very softly. Attention, concentration and fund of knowledge is mild to moderately impaired. On cranial nerve examination, pupils are equal, round and reacting to light, visual rojas are full on confrontation, with no neglect on double simultaneous stimulation. Extraocular muscles are intact with no nystagmus. Face is symmetric, tongue protrudes to the midline. Palatal elevation and sensation normal, hearing and shoulder shrug normal, facial sensation normal. On muscle strength testing, there is no pronator drift and the strength is normal in arms and legs distally and proximally, except deltoid 5-and hip flexion 4-bilaterally. Ankle dorsiflexion are normal. Deep tendon reflexes are symmetric biceps 2+, brachioradialis 2+, knees 2+, ankles 2 and plantars are upgoing bilaterally. Sensory to touch is equal with no neglect on double simultaneous stimulation. Cerebellar function showed no ataxia for [id number] testing. No dysdiadochokinesia. No ataxia for [id number] testing on either side. Tone and bulk of muscles normal. Gait deferred.. On general examination, there is no carotid bruit or murmur, S1-S2 audible. Chest is clear on consultation. Abdomen is soft nontender. No organomegaly, bowel sounds present. Peripheral pulses are present. No edema. Assessment and Plan Assessment: * Seizure disorder, with recent breakthrough seizures in the hospital. Patient claims that she has been taking Depakote although this medication is not mentioned in her home medication list, or reported from her [facility] pharmacy. It appears patient was initially admitted to psych unit on 06/06/2022 with suic sapna attempt and possible overdose on trazodone and Depakote. However her Depakote level was < 10. * Anxiety, depression * History of head injury with concussion on 08/18/2019 * Patient on Eliquis, probably due to positive lupus anticoagulants in the past. * Posttraumatic stress disorder * Generalized anxiety disorder. Plan: * Resume Depakote 500 mg twice a day, as patient believes that Depakote controls her seizures well. Repeat Depakote level today came < 10. * Continue Topamax 50 mg twice a day. * Check ammonia, prolactin level. * EEG in the morning. * Psychiatry to follow the patient while inpatient as well. * Neurology will follow. Thank you for the consult. Time with Patient: Greater than 30
[2022-06-09] MEDS: DIVALPROEX ER 500 MG TAB.ER.24H PO SCH ×3 (01:29→21:31)
[2022-06-09] MEDS: PANTOPRAZOLE 40 MG TABLET PO SCH ×2 (06:45→16:08)
[2022-06-09] MEDS: TOPIRAMATE 25 MG TAB PO SCH ×2 (08:37→21:31)
[2022-06-09] MEDS: DESVENLAFAXINE SUCCINATE 50 MG TAB.ER.24H PO SCH (08:37)
[2022-06-09] MEDS: APIXABAN 5 MG TAB PO SCH ×2 (08:37→21:32)
[2022-06-09] MEDS ORDERED: SODIUM CHLORIDE 0.9% 500 ML 500 ML IV ONE (10:15)
--- NOTE | 2022-06-09 10:46 | P.HPIM ---
History of Present Illness H&P Date: 06/09/22 History and Physical and Discharge Summary This is a 46-year-old female with PMH of bipolar disorder, severe recurrent major depression, hx suicide attempt, factitious disorder who initially presented to the ED with suicide attempt with possible, admitted to inpatient mental health unit. During group therapy reports she began feeling dizzy, developed rhythmic shaking. Received Ativan 2 mg without resolution and transferred to stepdown unit. Patient reports she been taken Depakote, not on her home medication last Valproic acid less than 10. Charge nurse witnessed event and felt patient had a pseudoseizure. Evaluated by neurology, workup in progress, Depakote resumed ,EEG pending. Defer to neurology consult note.Suicide precautions maintained with sitter at bedside. This morning sitting up in bed, voice weak, denies dizziness, blurred vision, chest pain, p alpitations or shortness of breath. Denies lightheadedness or focal deficits. Consumed 50% of breakfast without nausea vomiting or diarrhea. Afebrile. Mean arterial pressure 60-71, heart rates controlled in the low 60s, maintaining O2 sats in the 90s on room air. Review of Systems ROS Statement: Those systems with pertinent positive or pertinent negative responses have been documented in the HPI. ROS Other: All systems not noted in ROS Statement are negative. Past Medical History Past Medical History: Cancer, CVA/TIA Additional Past Medical History / Comment(s): pt. states they have had TIA in 2014, 2017, august 30 2019, pseudoseziures, bipolar 1, anxiety. liver, upper intestion, esophageal CA History of Any Multi-Drug Resistant Organisms: None Reported Past Surgical History: Section, Cholecystectomy, Tonsillectomy, Tubal Ligation Additional Past Surgical History / Comment(s): fundaplication, laproscopic scar tissue removal, partial stomach removal surgery R/T CA Past Anesthesia/Blood Transfusion Reactions: No Reported Reaction Past Psychological History: Anxiety, Bipolar, Depression Smoking Status: Never smoker Past Alcohol Use History: Occasional Past Drug Use History: None Reported - Past Family History Mother History Unknown: Yes Family Medical History: Congestive Heart Failure (CHF) Sister(s) History Unknown: Yes Additional Family Medical History / Comment(s): Lupus Brother(s) History Unknown: Yes Family Medical History: Deep Vein Thrombosis (DVT) Additional Family Medical History / Comment(s): cystic fibrosis,recent bilateral DVT Medications and Allergies Home Medications Medication Instructions Recorded Confirmed Type Atorvastatin [Lipitor] 10 mg PO HS 30 Days tab 09/16/21 06/08/22 Rx OLANZapine [ZyPREXA] 10 mg PO HS 30 Days tab 09/16/21 06/08/22 Rx Pantoprazole [Protonix] 40 mg PO BID 30 Days tab 09/16/21 06/08/22 Rx Topiramate [Topamax] 50 mg PO Q12H 30 Days tab 09/16/21 06/08/22 Rx Apixaban [Eliquis] 5 mg PO BID 06/06/22 06/08/22 History Desvenlafaxine Succinate [Pristiq] 100 mg PO DAILY 06/06/22 06/08/22 History Divalproex ER [Depakote ER] 500 mg PO BID tab 06/09/22 Rx Allergies Allergy/AdvReac Type Severity Reaction Status Date / Time duloxetine Allergy Rash/Hives Verified 06/07/22 00:18 gluten Allergy Swelling Verified 06/07/22 00:18 phenytoin [From Dilantin] Allergy Unknown Verified 06/07/22 00:18 shellfish derived [Shellfish] Allergy Anaphylaxis Verified 06/07/22 00:18 Physical Exam Vitals: Vital Signs Temp Pulse Resp BP Pulse Ox 06/09/22 08:00 96.2 F L 65 16 86/50 94 L 06/09/22 04:30 97.8 F 60 15 91/62 95 06/09/22 00:00 97.9 F 64 15 90/59 98 06/08/22 20:00 98.2 F 98 16 100/69 95 06/08/22 16:45 99.3 F 86 16 107/77 97 Intake and Output 06/08/22 06/09/22 06/09/22 22:59 06:59 14:59 Output Total 0 Balance 0 Output: Urine 0 Other: Voiding Method Toilet Toilet # Voids 2 Weight 75.75 kg PHYSICAL EXAM: VITAL SIGNS: [As above] GENERAL: Alert and oriented 3 ,Sitting up in bed, no acute distress, weak, low- tone voice. HEENT: Conjunctivae normal. eyes normal. NECK: No JVD. No thyroid enlargement. No LNs CARDIOVASCULAR: S1, S2 regular.No murmur RESPIRATION: Unlabored, Breath sounds diminished in the bases. No rhonchi or crackles. No bronchial breathing. ABDOMEN: Soft, nontender . No guarding. no masses palpable. No ascites, No hepatosplenomegaly.Bowel sounds heard. LEGS: No edema. no swelling NERVOUS SYSTEM: Cranial N 2-12 grossly normal. No focal deficits. Strength and sensation grossly intact. Skin: Warm and dry ,no rash Results Labs: Abnormal Lab Results - Last 24 Hours (Table) 06/08/22 Range/Units 18:44 Prolactin 30.900 H (2.800-29.200) ng/mL Thrombosis Risk Factor Assmnt - Choose All That Apply Each Risk Factor Represents 2 Points: Malignancy Each Risk Factor Represents 3 Points: History of DVT/PE Thrombosis Risk Factor Assessment Total Risk Factor Score: 5 Thrombosis Risk Factor Assessment Level: High Risk Assessment and Plan Assessment: CC disorder with breakthrough seizures, possibly pseudoseizure, EEG pending. Suicidal ideation. Management per psychiatry Major depression, severe Hx DVT. Continue eliquis GERD. Continue protonix Asymptomatic bacturia Plan: Continue on current medication regime ,monitoring and symptomatic treatment. Significant clinical improvement .no further seizure activity .Patient is medically cleared for return back to inpatient mental health unit pending EEG, final DC recommendations and clearance per neurology. Maintain suicide precautions, safety instructor. Discharge Medication List Atorvastatin [Lipitor] 10 mg PO HS 30 Days tab 09/16/21 [Rx] OLANZapine [ZyPREXA] 10 mg PO HS 30 Days tab 09/16/21 [Rx] Pantoprazole [Protonix] 40 mg PO BID 30 Days tab 09/16/21 [Rx] Topiramate [Topamax] 50 mg PO Q12H 30 Days tab 09/16/21 [Rx] Apixaban [Eliquis] 5 mg PO BID 06/06/22 [History] Desvenlafaxine Succinate [Pristiq] 100 mg PO DAILY 06/06/22 [History] Divalproex ER [Depakote ER] 500 mg PO BID tab 06/09/22 [Rx] The impression and plan of care has been dictated as directed. : I performed a history and examination of this patient, discussed the same with the dictator. I agree with the dictator's note ,documented as a scribe. Any additional findings or plans will be noted.
--- NOTE | 2022-06-09 14:14 | CT ---
EXAMINATION TYPE: CT brain wo con DATE OF EXAM: 06/09/2022 COMPARISON: 06/27/2021 HISTORY: Seizure Activity CT DLP: 1074.4 mGycm. Automated Exposure Control for Dose Reduction was Utilized. TECHNIQUE: CT scan of the head is performed without contrast. FINDINGS: There is no acute intracranial hemorrhage, mass effect, or midline shift identified. The ventricles and sulci are within normal limits in size. The globes are intact and the visualized sin uses are clear. Low density within the basal ganglia bilaterally new from prior exam. Cerebellar tons ils are slightly low-lying at the level of the foramen magnum. IMPRESSION: 1. No acute intracranial hemorrhage, mass effect, or midline shift is seen. 2. Areas of low density seen within the basal ganglia bilaterally are new from prior exam but may be in the basis of prominent Virchow-Rommel spaces, carbon dioxide poisoning or remote lacunar infarct. I f concern for acute process correlate with MRI.
--- NOTE | 2022-06-09 14:39 | P.CN ---
Psychiatric Consult - . Consult date: 06/09/22 Consult:: 06/09/22 14:38 IDENTIFYING DATA: Patient is a 46-year-old female with significant history of bipolar disorder, generalized anxiety disorder, factitious disorder who presents to our hospital for suicidal ideation however experienced a seizure on 06/08/2022 and was subsequently admitted onto the medical floor for evaluation of seizures. HPI: Patient presented to the hospital on 06/06/2022, with a chief complaint of depression and suicidal ideation. The patient reportedly overdosed on Depakote and trazodone prior to this admission. She was admitted to the psychiatric unit and her Pristiq was tapered and she was transitioned to Effexor. She was continued on Topamax and her trazodone was increased. On 06/08/2022, the patient had a seizure witnessed on the psychiatric unit. Yesterday at [facility] 5:29 PM, the patient had another seizure witnessed by the sitter. The patient is currently being evaluated and treated for seizures and was restarted on Depakote and Topamax. Upon evaluation by the psychiatric provider, the patient is currently not reporting any issues regarding her mood. She says that she is feeling better. She states that during her seizure episodes yesterday, she did end up losing control of her bladder. She denies any tongue biting. The patient is currently not reporting any auditory or visual hallucinations. She is denying any paranoia or other delusions. She is not reporting any suicidal or homicidal ideation, intention, and/or plan. She had a CT performed and underwent an EEG. PAST PSYCHIATRIC HISTORY: Patient states that she has been previously diagnosed with anxiety, depression, and factitious disorder. The patient has trialed numerous medications including Pristiq, Zyprexa, Topamax, trazodone, lithium, and BuSpar. The patient was previously open with outpatient psychotherapy however stopped seeing her therapist approximately one month ago. She reports that she is open to outpatient treatment in [place]. She reports 5-6 prior attempts at suicide. PAST MEDICAL HISTORY: Past Medical History: Cancer, CVA/TIA Additional Past Medical History / Comment(s): pt. states they have had TIA in 2014, 2017, august 30 2019, pseudoseziures, bipolar 1, anxiety. liver, upper intestion, esophageal CA History of Any Multi-Drug Resistant Organisms: None Reported Past Surgical History: Section, Cholecystectomy, Tonsillectomy, Tubal Ligation Additional Past Surgical History / Comment(s): fundaplication, laproscopic scar tissue removal, partial stomach removal surgery R/T CA Past Anesthesia/Blood Transfusion Reactions: No Reported Reaction Past Psychological History: Anxiety, Bipolar, Depression Smoking Status: Never smoker Past Alcohol Use History: Occasional Past Drug Use History: None Reported ALLERGIES: Duloxetine, gluten, phenytoin, shellfish CHEMICAL DEPENDENCY HISTORY: The patient denies any tobacco, alcohol, or illicit drug use. She reports rare marijuana use. FAMILY PSYCHIATRIC/SUBSTANCE USE HISTORY: Father and sister bipolar. SOCIAL HISTORY: Patient was born and raised in [place]. She is currently engaged to be . She reports that she has 5 children. 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 She lives with her fianc. She currently receives Social Security. MENTAL STATUS EXAM: General Appearance: Patient appears to be stated age is alert, pleasant, and cooperative. Patient appears to have fair hygiene and grooming wearing hospital gown with fair eye contact. Behavior: Patient is calmly lying in bed without any agitated behavior. Speech: Patient's speech is fluent and nonpressured. Low in volume and nonspontaneous. Mood/Affect: Patient reports their mood is "doing okay", affect is blunted. Suicidality/Homicidality: Patient denies having any suicidal or homicidal ideation intent or plan. Perceptions: Patient denies any visual hallucinations and denies any auditory hallucinations Though content/process: There is no evidence of any delusional thought content and thought process is linear and goal-directed. Memory and concentration: AOX3, grossly intact for the purposes of this session. Can spell "WORLD" backwards Judgment and insight: Fair Vital Signs Temp 96.2 F L 06/09/22 08:00 Pulse 70 06/09/22 12:00 Resp 16 06/09/22 12:00 BP 107/75 06/09/22 12:00 Pulse Ox 94 L 06/09/22 08:00 FiO2 Intake & Output 06/08/22 06/09/22 06/09/22 18:59 06:59 18:59 Output Total 0 Balance 0 Weight 75.75 kg Output: Urine 0 Other: Voiding Method Toilet Toilet # Voids 2 Laboratory Results Ammonia 10 umol/L (<30) 06/08/22 18:44 Prolactin 30.900 ng/mL (2.800-29.200) H 06/08/22 18:44 Valproic Acid <10.0 ug/mL 06/08/22 18:44 Allergies Allergy/AdvReac Type Severity Reaction Status Date / Time duloxetine Allergy Rash/Hives Verified 06/07/22 00:18 gluten Allergy Swelling Verified 06/07/22 00:18 phenytoin [From Dilantin] Allergy Unknown Verified 06/07/22 00:18 shellfish derived [Shellfish] Allergy Anaphylaxis Verified 06/07/22 00:18 IMPRESSIONS: Seizure disorder Major depressive disorder, recurrent, severe Generalized anxiety disorder Factitious disorder Posttraumatic stress disorder Cluster B personality traits PLAN: -At this time patient DOES NOT meet criteria for inpatient psychiatric admission. The patient is currently not presenting with any criteria for inpatient psychiatric admission however, the psychiatry team will continue to follow at this time to reassess the need for inpatient psychiatric admission upon medical stabilization. -Delirium precautions recommended with patient including - avoiding use of narcotics and PHARMACY TECHNOLOGIST sedatives, limit anticholinergic medications when possible, frequent re-orientation, minimize use of restraints, open window shades during the day and close them at night -Would recommend the following medication changes/additions: Continue Zyprexa 10 mg by mouth at bedtime for mood augmentation Depakote 500 mg by mouth twice a day for mood stabilization/seizure disorder Restart Effexor XR 75 mg by mouth daily Continue Topamax 50 mg by mouth every 12 hours -Continue 1:1 sitter for safety -Cannot leave AMA at this time. Patient will need a petition and certification if attempting to leave AMA. -Will continue to follow along. Psychiatry will continue to reassess the need for inpatient psychiatric admission as the patient is not presenting with criteria at this time however was recently transferred off our psychiatric unit and was admitted for depression and suicidal ideation. 06/09/22 14:38 06/09/22 14:39
--- NOTE | 2022-06-09 14:54 | P.PN ---
Subjective Progress Note Date: 06/09/22 Patient was seen for a follow-up. Patient is laying comfortably in the bed. No further seizures reported since last night. Patient is more alert and awake today. Denies any focal symptoms. Objective - Vital Signs Vital signs: Vital Signs Temp 96.2 F L 06/09/22 08:00 Pulse 65 06/09/22 08:00 Resp 16 06/09/22 08:00 BP 86/50 06/09/22 08:00 Pulse Ox 94 L 06/09/22 08:00 FiO2 Intake & Output 06/08/22 06/09/22 06/09/22 18:59 06:59 18:59 Output Total 0 Balance 0 Weight 75.75 kg Output: Urine 0 Other: Voiding Method Toilet Toilet # Voids 2 - Exam Patient is more alert and awake. Still slightly slow mentation. Prolonged latency time to answer questions. Speech and language functions are normal. She is speaking with slightly louder tone. Denies any hallucinations. Patient states it's September and the year is 2021. I informed her about incorrect month, then she said was August. She thinks Mr. Salinas is the president. She states that she is in [facility] in [place], in [place]. No aphasia or dysarthria. Cranial nerves are normal. Face is symmetric and tongue towards the midline. No evidence of tongue bite desi. Muscle strength is normal. No ataxia. - Labs Labs: Abnormal Lab Results - Last 24 Hours (Table) 06/08/22 Range/Units 18:44 Prolactin 30.900 H (2.800-29.200) ng/mL Assessment and Plan Assessment: * Seizure disorder, with recent breakthrough seizures in the hospital. Patient claims that she has been taking Depakote although this medication is not mentioned in her home medication list, or reported from her [facility] pharmacy. It appears patient was initially admitted to psych unit on 06/06/2022 with suicide attempt and possible overdose on trazodone and Depakote. However her Depakote level was < 10. * Anxiety, depression * History of head injury with concussion on 08/18/2019 * Patient on Eliquis, probably due to positive lupus anticoagulants in the past. * Posttraumatic stress disorder * Generalized anxiety disorder. Plan: * Continue Depakote 500 mg twice a day, as patient believes that Depakote controls her seizures well. * EEG was performed and the preliminary results are normal. No epileptiform activity was seen. * Patient requested CT head. CT head was performed, which revealed no acute process. Areas of low density seen within the basal ganglia bilaterally are new from prior exam from 06/27/2021, may be in the basis of prominent Virchow-Rommel spaces, carbon dioxide poisoning or remote lacunar infarct. If concern for acute process, correlate with MRI. I personally reviewed CT head, agree with the findings. Patient probably has some remote history of carbon monoxide poisoning. The lesions are definitely remote/chronic, therefore most likely not an acute process. * Continue Topamax 50 mg twice a day. * Ammonia 10, prolactin level is elevated at 30.9(2.8-29.2). * Psychiatry following. * Neurologically clear for transfer to psychiatric unit. Recommend patient follow up with her neurologist as an outpatient in 2-4 weeks.
[2022-06-09] MEDS: OLANZapine 10 MG TAB PO SCH (21:31)
[2022-06-09] MEDS: ATORVASTATIN 10 MG TAB PO SCH (21:32)
[2022-06-10] MEDS: VENLAFAXINE HCL ER 75 MG CAP PO SCH (09:05)
[2022-06-10] MEDS: DIVALPROEX ER 500 MG TAB.ER.24H PO SCH ×2 (09:06→20:59)
[2022-06-10] MEDS: TOPIRAMATE 25 MG TAB PO SCH ×2 (09:06→20:59)
[2022-06-10] MEDS: APIXABAN 5 MG TAB PO SCH ×2 (09:06→21:00)
[2022-06-10] MEDS: PANTOPRAZOLE 40 MG TABLET PO SCH ×2 (09:08→17:39)
--- NOTE | 2022-06-10 11:35 | EEG ---
ELECTROENCEPHALOGRAM REPORT PREAMBLE: This is a 46-year-old female with seizure-type spells. This study is performed to evaluate for epileptiform activity. EEG FINDINGS: This is a 21-channel digital EEG recorded with video component, utilizing 10/20 international system with referential and bipolar montages. Background consists of well developed, well regulated moderate voltage activity in 8-9 hertz alpha. Background is posterior dominant and reactive to eye opening and closing. Some drowsiness was seen with the presence of symmetric theta frequency rhythm. Deeper stages of sleep were not seen. Photic stimulation and hyperventilation were not performed. No focal or generalized epileptiform activity was seen. IMPRESSION: This is a normal awake and drowsy EEG. No focal, lateralized or epileptiform activity was seen. MMHANSELL / PATRICIAN: [id number] /
--- NOTE | 2022-06-10 20:43 | PN ---
PROGRESS NOTE DATE OF SERVICE: 06/10/2022 SUBJECTIVE: This is a 46-year-old woman, who was admitted with seizure disorder, possibly pseudoseizure. She is being closely monitored by Neurology. Dr. Monzon has done a CT scan of the brain also. The EEG was normal. No chest pain. No palpitations. No fever. OBJECTIVE: VITAL SIGNS: Pulse is 61, blood pressure 90/60, respirations 18. CHEST: Clear to auscultation. CARDIOVASCULAR: S1 and S2. ABDOMEN: Soft. NERVOUS SYSTEM: Nonfocal. LABORATORY DATA: Noted. Prolactin is high at 30.9. ASSESSMENT: 1. Acute seizure disorder with breakthrough seizures. 2. Anxiety and depression. 3. History of head injury with concussion. RECOMMENDATIONS: Recommend to continue current medications and symptomatic treatment. Closely follow with Neurology. Guarded prognosis. Further recommendations to follow. JULIAL / IJN: [id number] /
[2022-06-10] MEDS: ATORVASTATIN 10 MG TAB PO SCH (20:59)
[2022-06-10] MEDS ORDERED: OLANZapine 10 MG TAB PO SCH (21:00)
[2022-06-11] MEDS: PANTOPRAZOLE 40 MG TABLET PO SCH ×2 (06:50→16:48)
[2022-06-11 08:49] VITALS: RESP 18; TEMP 98.1
[2022-06-11] MEDS: APIXABAN 5 MG TAB PO SCH (08:53)
[2022-06-11] MEDS: TOPIRAMATE 25 MG TAB PO SCH (08:53)
[2022-06-11] MEDS: DIVALPROEX ER 500 MG TAB.ER.24H PO SCH (08:54)
[2022-06-11] MEDS: VENLAFAXINE HCL ER 75 MG CAP PO SCH (09:46)
[2022-06-11 16:53] VITALS: BP 107/69; PULSE 60
--- NOTE | 2022-06-12 07:20 | DS ---
DISCHARGE SUMMARY FINAL DIAGNOSES: 1. Acute seizure disorder and breakthrough seizures. 2. Anxiety and depression. 3. 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 4. History of head injury with concussion. 5. Elevated prolactin. DISCHARGE DISPOSITION: The patient will be discharged in stable condition with guarded prognosis. HISTORY OF PRESENT ILLNESS/HOSPITAL COURSE: A 46-year-old woman, who was admitted with seizures/pseudoseizures, prolactin was elevated. The patient treated symptomatically. Psychiatry, Neurology cleared the patient for discharge. So, the patient was discharged in a stable condition with guarded prognosis with the following advice and medications. PHYSICAL EXAMINATION: VITAL SIGNS: Stable. CARDIOVASCULAR: S1, S2. ABDOMEN: Soft. NERVOUS SYSTEM: Nonfocal. DISCHARGE ADVICE AND MEDICATIONS: The patient is being recommended to continue Depakote 500 mg p.o. b.i.d. and Effexor XR 75 mg p.o. daily. Continue the rest of medications. Discontinue trazodone. Follow up with Dr. Carney. Follow up with Dr. Senior. Once again, the patient was discharged in a stable condition with guarded prognosis. Please refer to the medication reconciliation sheet for list of medications. MMODL / IJN: [id number] /
== END 2022-06-11 16:57 | disposition home or self-care (01) | DRG 101 ==
LOC: 3SCARD 16:35 → UNDODISIN 06-10 14:50
PROVIDERS: ADMIT Family Medicine; ATTEND Family Medicine
DX: G40.909 Epilepsy, unspecified, not intractable, without status epilepticus (principal); D68.62 Lupus anticoagulant syndrome; F33.2 Major depressive disorder, recurrent severe without psychotic features; F68.10 Factitious disorder imposed on self, unspecified; R45.851 Suicidal ideations; E22.1 Hyperprolactinemia; F41.1 Generalized anxiety disorder; F43.10 Post-traumatic stress disorder, unspecified; K21.9 Gastro-esophageal reflux disease without esophagitis; G43.909 Migraine, unspecified, not intractable, without status migrainosus; R82.71 Bacteriuria; S06.0XAD Concussion with loss of consciousness status unknown, subsequent encounter; Z87.828 Personal history of other (healed) physical injury and trauma; Z79.01 Long term (current) use of anticoagulants; Z79.899 Other long term (current) drug therapy; Z28.310 Unvaccinated for COVID-19; Z91.51 Personal history of suicidal behavior; Z86.73 Personal history of transient ischemic attack (TIA), and cerebral infarction without residual deficits; Z86.718 Personal history of other venous thrombosis and embolism; Z85.01 Personal history of malignant neoplasm of esophagus; Z88.8 Allergy status to other drugs, medicaments and biological substances
CPT/HCPCS: 70450; 80164; 82140; 84146; 95816